=== PATIENT | female | born 1955 | race Caucasian/White ===

== ENCOUNTER 2016-08-21 14:20 | Inpatient (IN) | payer OTHER ==
[~2016-08-21] VITALS: Ht 157.5 cm; Wt 39.5 kg
[~2016-08-21 14:20] MED LIST: ATIVAN 0.5MG T0.5 MG PO; ATROVENT 0.02%2.5 ML INH; METHYLPREDNISOLONE IV; MOXIFLOXACIN H400 M1 PO; NICODERM C21 MG/24 H TOP; SPIRIVA1 PUF INH; TESSALON PERLE100 MG PO
--- NOTE | 2016-08-21 14:43 | ED DYSPNEA/ASTHMA COMPLAINT ---
History of Present Illness General Chief Complaint: Dyspnea (COPD, CHF, Other) Stated Complaint: COPD FLEAR UP PER PT Source: patient, old records, PCP Exam Limitations: no limitations Vital Signs & Intake/Output Vital Signs & Intake/Output Vital Signs Date Time Temp Pulse Resp B/P Pulse O2 O2 Flow FiO2 Ox Delivery Rate 08/21 1736 80 16 94/53 96 Nasal 2.0L Cannula 08/21 1722 96 Nasal 2.0L Cannula 08/21 1605 90 20 94/55 99 Aerosol Mask 08/21 1600 Nasal 4.0L Cannula 08/21 1457 98.3 94 22 116/65 99 Nasal 4.0L Cannula 08/21 1426 98.3 97 20 113/73 87 Room Air Room Air Allergies Coded Allergies: NO KNOWN ALLERGIES (06/05/14) Reconcile Medications No Known Home Medications Triage Note: PT TO ED FROM DR GRANT'S OFFICE, SENT IN FOR LOW O2 SATS, O2 SAT IN TRIAGE 87% ON ROOM AIR. PT NOT ON O2 AT HOME. +SMOKER Triage Nurses Notes Reviewed? yes HPI: Patient has not seen a nuclear medicine technician in over a year so has run out of her COPD medications. Patient continues to smoke. Patient saw Dr. Grant this afternoon for the first time. Patient was short of breath in his office and not speak complete. Her room air oxygen saturation was 85%. Patient sent down for evaluation. Patient states that her symptoms have been worsening and she's had a wet sounding but nonproductive cough. Patient states she wakes up in the morning feeling very short of breath and fatigued. Patient is unsure if she wakes up multiple times during the night. Patient states that she has no appetite but does not have any abdominal pain. There is no nausea or vomiting. No constipation or diarrhea. Patient denies any fevers or chills. Patient denies any chest pain or chest tightness. Patient states that she just feels very weak and feels very short of breath when she walks around or speak. Past History Travel History Traveled to [place] past 21 day No Medical History Any Pertinent Medical History? see below for history Neurological: NONE EENT: NONE Cardiovascular: NONE Respiratory: emphysema Gastrointestinal: NONE Hepatic: NONE Renal: NONE Musculoskeletal: NONE Psychiatric: NONE Endocrine: NONE Blood Disorders: NONE Cancer(s): NONE ELECTRONICS SPECIALIST/Reproductive: NONE History of MRSA: No History of VRE: No History of CDIFF: No Pneumonia Vaccine: 06/05/14 Influenza Vaccine: 06/05/14 Surgical History Surgical History: non-contributory Psychosocial History Who do you live with Patient/Self What is your primary language Macedonian Tobacco Use: Current Daily Use Daily Tobacco Use Amount/Type: => 5 Cigarettes daily ETOH Use: denies use Illicit Drug Use: denies illicit drug use Family History Family History, If Any: SON (Diabetes). BROTHER Relation not specified for: FH: COPD (chronic obstructive pulmonary disease) FH: diabetes mellitus Hx Contributory? No Review of Systems Review of Systems Constitutional: Reports: no symptoms. EENTM: Reports: no symptoms. Respiratory: Reports: see HPI, cough, short of breath, wheezing. Cardiovascular: Reports: no symptoms. GI: Reports: no symptoms. Genitourinary: Reports: no symptoms. Musculoskeletal: Reports: no symptoms. Skin: Reports: no symptoms. Neurological/Psychological: Reports: no symptoms. Hematologic/Endocrine: Reports: no symptoms. Immunologic/Allergic: Reports: no symptoms. All Other Systems: Reviewed and Negative Physical Exam Physical Exam General Appearance: well developed/nourished, alert, awake, anxious, moderate distress Head: atraumatic, normal appearance Eyes: Bilateral: PERRL, EOMI. Ears, Nose, Throat: normal pharynx, normal ENT inspection Neck: normal inspection, supple, full range of motion Respiratory: chest non-tender, decreased breath sounds, wheezing, respiratory distress Cardiovascular: regular rate/rhythm, normal peripheral pulses Gastrointestinal: normal bowel sounds, soft, non-tender, no organomegaly Extremities: normal inspection, normal capillary refill, normal range of motion, no edema Neurologic/Psych: no motor/sensory deficits, awake, alert, oriented x 3, normal mood/affect Skin: intact, normal color, warm/dry Lymphatic: no anterior cervical monica Core Measures ACS in differential dx? No Severe Sepsis Present: No Septic Shock Present: No Progress Differential Diagnosis: asthma, AMI, bronchitis, CHF, COPD, pulmonary embolism, pneumonia, pneumothorax Plan of Care: Orders Procedure Date/time Status Regular Diet 08/21 D Active CTA CHEST-PULMONARY EMBOLISM 08/21 1646 Active ARTERIAL BLOOD GAS (GEN) 08/21 1443 Active Telemetry/Technician Assistant 08/21 1443 Active BLOOD CULTURE 08/21 1443 Active TROPONIN LEVEL 08/21 1443 Complete PARTIAL THROMBOPLASTIN TIME 08/21 144 Complete PROTHROMBIN TIME 08/21 1443 Complete COMPREHENSIVE METABOLIC PANEL 08/21 144 Complete CBC WITHOUT DIFFERENTIAL 08/21 1442 Complete EKG 08/21 144 Active Current Medications Sig/Nishant Start time Last Medication Dose Stop Time Status Admin Azithromycin 500 MG ONCE ONE 08/21 1829 UNVr (Zithromax) 08/21 1928 Dextrose/Water 250 ML (D5W) Ceftriaxone Sodium 1,000 MG ONCE ONE 08/21 1829 UNVr (Rocephin) 08/21 1830 Laboratory Tests 08/21/16 1555: pH 7.38, pCO2 53 H, pO2 80, HCO3 31 H, ABG O2 Sat (Measured) 88.0 L, P-50 ( Temp Corrected) Y, Carboxyhemoglobin 8.3 *H, O2 Concentration % 2L, Temperature 97.2, O2 Delivery Method N/C, Phlebotomy Draw Site LEFT RADIAL 08/21/16 1525: Anion Gap 9, Estimated GFR > 60, BUN/Creatinine Ratio 15.0, Glucose 86, Calcium 9.5, Total Bilirubin 0.8, AST 31, ALT 44, Alkaline Phosphatase 64, Troponin I < 0.01, Total Protein 7.0, Albumin 4.3, Globulin 2.7, Albumin/Globulin Ratio 1.6, PT 10.6, INR 1.01, APTT 31, CBC w Diff NO MAN DIFF REQ, RBC 5.54 H, MCV 96.2, MCH 30.5, RDW 14.6 H, MPV 8.5, Gran % 69.1, Lymphocytes % 21.3, Monocytes % 7.4 , Eosinophils % 1.8, Basophils % 0.4, Absolute Granulocytes 4.7, Absolute Lymphocytes 1.4, Absolute Monocytes 0.5, Absolute Eosinophils 0.1, Absolute Basophils 0, PUBS MCHC 31.7 L Microbiology 08/21 152 BLOOD: Blood Culture - RECD 08/21 152 BLOOD: Blood Culture - RECD Diagnostic Imaging: Viewed by Me: Radiology Read. Discussed w/RAD: Radiology Read. CXR Impression: PATIENT: KRISTEN HERNANDEZ PRESENT AGE: 61 PATIENT ACCOUNT NO: [id number] : 59 LOCATION: [facility] ORDERING PHYSICIAN: NANCY ROBERTS MD SERVICE DATE: 08/21/16-1442 EXAM TYPE: RAD - XRY- PORTABLE CHEST XRAY EXAMINATION: XR PORTABLE CHEST CLINICAL INFORMATION: Shortness of breath. Evaluate for pneumonia. COMPARISON: Report from prior chest x-ray 06/04/2014. TECHNIQUE: Portable AP view of the chest was obtained. FINDINGS: The cardiomediastinal silhouette is within normal limits. The lungs are moderately hyperexpanded and clear. No underlying pleural effusions are seen. There is no evidence of pneumothorax or pulmonary edema. Included osseous structures appear largely unremarkable. IMPRESSION: No evidence of an acute intrathoracic process. DICTATED BY: LEYDI KIM MD DATE/TIME DICTATED:08/21 YARN WORKER:SHRUTHI DATE/TIME TRANSCRIBED:08/21/161525 CONFIDENTIAL, DO NOT COPY WITHOUT APPROPRIATE AUTHORIZATION. <Electronically signed in Other Vendor System> SIGNED BY: LEYDI KIM MD 08/21/16 216 Initial ED EKG: NSR, nonspecific ST T wave chg Prior EKG: unchanged Rhythm Strip: normal sinus rhythm Comments: O2 STATS INCREASED TO 97%ON 2 LPM. Departure Departure Disposition: STILL A PATIENT Condition: Guarded Clinical Impression Primary Impression: COPD exacerbation Referrals: NAINA STEIN,CHAPARRO (PCP/Family) Departure Forms: Customer Survey General Discharge Information Prescriptions: Current Visit Scripts No Known Home Medications Admission Note Spoke With: ANDRÉS OROZCO MD Documentation of Exam: Documentation of any treatments & extenuating circumstances including Concerns Regarding Discharge (functional status, medication knowledge or non-compliance, living conditions, etc.) that warrant an admission rather than observation: [IV antibiotics, IV steroids, nebulizer treatments, pulmonary consult, patient is requiring O2, at some point patient patient should be worked up for shock to sleep apnea.] Critical Care Note Critical Care Note Critical Care Time: non-applicable
--- NOTE | 2016-08-21 15:32 | RADIOLOGY REPORT ---
EXAMINATION: XR PORTABLE CHEST CLINICAL INFORMATION: Shortness of breath. Evaluate for pneumonia. COMPARISON: Report from prior chest x-ray 06/04/2014. TECHNIQUE: Portable AP view of the chest was obtained. FINDINGS: The cardiomediastinal silhouette is within normal limits. The lungs are moderately hyperexpanded and clear. No underlying pleural effusions are seen. There is no evidence of pneumothorax or pulmonary edema. Included osseous structures appear largely unremarkable. IMPRESSION: No evidence of an acute intrathoracic process.
[2016-08-21 16:07] LABS: PT 10.6 SEC (9.4-12.5); PTT 31 SEC (25-37)
[2016-08-21 16:19] LABS: ABSOLUTE BASOPHIL COUNT 0 /CUMM (0.0-0.2); ABSOLUTE EOSINOPHIL COUNT 0.1 /CUMM (0.0-0.7); ABSOLUTE GRANULOCYTE CT 4.7 /CUMM (1.4-6.5); ABSOLUTE LYMPH COUNT 1.4 /CUMM (1.2-3.4); ABSOLUTE MONOCYTE COUNT 0.5 /CUMM (0.10-0.60); BASOPHIL % 0.4 % (0.0-2.0); EOSINOPHIL % 1.8 % (0-5); GRANULOCYTE % 69.1 % (42.2-75.2); HEMATOCRIT 53.3 % (37-47); MEAN CORPUSCULAR HGB 30.5 PG (27.0-31.0); MEAN CORPUSCULAR HGB CONC 31.7 G/DL (33.0-37.0); MEAN CORPUSCULAR VOLUME 96.2 FL (81.0-99.0); MEAN PLATELET VOLUME 8.5 FL (7.4-10.4); PLATELET COUNT 151 /CUMM (130-400); RBC DISTRIBUTION WIDTH 14.6 % (11.5-14.5); RED BLOOD CELL CT 5.54 /CUMM (4.20-5.40); WHITE BLOOD CELL COUNT 6.8 /CUMM (4.8-10.8)
--- NOTE | 2016-08-21 18:39 | History & Physical ---
MARANDA FOLEY MD 08/21/16 2749: General Information and HPI MD Statement: I have seen and personally examined KRISTEN HERNANDEZ and documented this H&P. The patient is a 61 year old F who presented with a patient stated chief complaint of []. History of Present Illness: This is a 61-year-old female with a past medical history of COPD, 50 pack years of smoking history, not on home oxygen, currently not on any home pulmonary inhalers or any home medications who presented to the [facility] with persistent shortness of breath and fatigue for the last 1 year. The patient's symptoms has been present for almost a year but has been worsened in the last 1 week. She was referred by her primary care physician to see the employment training specialist Dr. Grant when she saw in the morning and after doing a pulse oximetry in the office the patient was then deferred to the emergency department for further evaluation. The patient when I saw was complaining of persistent wheezing, intermittent cough which is sometimes productive with whitish sputum. She denied any fever or chills, she has been exposed to recent sick contacts which includes his sister who was been diagnosed with pneumonia. No recent leg swellings, chest pain palpitations. The patient is CURRENTLY actively smoking as well. She doesn't only follow up with her primary care physician. She has also noticed that she has lost 30 pounds in the last 1 year and felt as if her appetite has decreased as well. She was previously on heartburn education and had endoscopy done 20-30 years back but currently is asymptomatic Allergies/Medications Allergies: Coded Allergies: NO KNOWN ALLERGIES (06/05/14) Home Med list No Known Home Medications Past History Travel History Traveled to [place] past 21 day No Medical History Neurological: NONE EENT: NONE Cardiovascular: NONE Respiratory: emphysema Gastrointestinal: NONE Hepatic: NONE Renal: NONE Musculoskeletal: NONE Psychiatric: NONE Endocrine: NONE Blood Disorders: NONE Cancer(s): NONE CREDIT PORTFOLIO ADVISOR/Reproductive: NONE History of MRSA: No History of VRE: No History of CDIFF: No Surgical History Surgical History: non-contributory Past Family/Social History Family History Relations & Conditions if any SON (Diabetes). BROTHER Relation not specified for: FH: COPD (chronic obstructive pulmonary disease) FH: COPD (chronic obstructive pulmonary disease) FH: diabetes mellitus Psychosocial History Where do you live? Home Who Do You Live With? child Services at Home: None Primary Language: Latvian Smoking Status: Current Everyday Smoker ETOH Use: denies use Illicit Drug Use: denies illicit drug use Review of Systems Review of Systems Constitutional: Reports: see HPI. Cardiovascular: Reports: palpitations. Denies: see HPI, chest pain, edema, peripheral edema. Respiratory: Reports: cough, orthopnea, short of breath, sputum production, wheezing. GI: Reports: nausea. Denies: bloating, constipation, distention, bowel incontinence , melena. Genitourinary: Denies: discharge, dysuria, frequency, hematuria, hesitation. Musculoskeletal: Denies: gout, joint pain, joint swelling, muscle pain, muscle stiffness. Exam & Diagnostic Data Last 24 Hrs of Vital Signs/I&O Vital Signs Date Time Temp Pulse Resp B/P Pulse O2 O2 Flow FiO2 Ox Delivery Rate 08/21 2005 98.9 88 18 90/68 95 Nasal 3.0L Cannula 08/21 1954 99.1 88 20 90/68 95 Nasal 4.0L Cannula 08/21 1736 80 16 94/53 96 Nasal 2.0L Cannula 08/21 1722 96 Nasal 2.0L Cannula 08/21 1605 90 20 94/55 99 Aerosol Mask 08/21 1600 Nasal 4.0L Cannula 08/21 1457 98.3 94 22 116/65 99 Nasal 4.0L Cannula 08/21 1426 98.3 97 20 113/73 87 Room Air Room Air Intake & Output 08/21 1600 08/21 0800 08/21 0000 Intake Total Output Total Balance Patient 87 lb 0.02 oz Weight Physical Exam General Appearance Alert, Oriented X3, Cooperative Skin No Rashes, No Breakdown HEENT Atraumatic, PERRLA Neck Supple, No JVD, No thryomegaly Lymphatic Axillary nl, Cervical nl Cardiovascular Normal S1, Normal S2 Lungs Clear to Auscultation, Normal Air Movement Abdomen Soft, No Tenderness Assessment/Plan Assessment: This is a 61-year-old female with a past medical history of COPD not on home oxygen who presented to the [facility] with persistent shortness of breath and bilateral wheezing with intermittent productive cough. Vital signs at the time of admission shows: Blood pressure of 94/53, saturation of 96% on 2 L, respiration rate of 18 heart rate of 80. Labs shows normal WBC, hemoglobin of 16.9 with normal hematocrit, platelet count of 151, rest of the electrolytes are within normal limits Chest x-ray does not show any acute pulmonary process Assessment 1. COPD exacerbation 2. Borderline hypotension Plan To general medicine floor Start the patient on IV Solu-Medrol 40 mg every 8 from the morning Add azithromycin for has an anti-inflammatory effect TRC nebulization Symbicort 2 puffs twice a day Albuterol nebulization Pulmonology consult to Dr. Grant in the morning Patient is currently full code DVT prophylaxis at all times with subcutaneous Lovenox As Ranked By This Provider Problem List: 1. COPD exacerbation 2. Hypoxia Core Measures/Miscellaneous Acute Coronary Syndrome ACS Diagnosis: No Cerebrovascular Accident CVA/TIA Diagnosis: No Congestive Heart Failure CHF Diagnosis: No Venous Thromboembolism VTE Risk Factors: Acute medical illness, Age > 40 VTE Prophylaxis Ordered Inpt: Pharm- Lovenox No Mech VTE prophylaxis d/t: No contraindications No VTE Pharm Prophylaxis d/t: No contraindications VTE Diagnosis: No VTE Type: NONE VTE Confirmed by (Test): NONE Severe Sepsis Severe Sepsis Present: No Septic Shock Septic Shock Present: No Miscellaneous Documentation Attending Case Discussed With: [facility]ENG [facility] Primary Care Physician: CHAPARRO CHEW MD Patient sees these Specialists NONE Level of Patient Care: General Medicine ARPIT OROZCO MD 08/21/161922: Attending MD Review Statement Attending Statement Attending MD Statement: examined this patient, discuss w/resident/PA/FOUNDRY HAND, agreed w/resident/PA/FOUNDRY HAND Attending Assessment/Plan: 61 yo F, smoker, with h/o COPD is here with gradually worsening dyspnea on exertion, weakness and cough productive of white phlegm for over 1 year. She was last admitted to [facility] in 2013 for COPDE, but did not follow up with a Director Hospice Operations. She also did not have her inhalers for the past year. She has lost 30 lbs in 1 year. Sick contacts ++. She had an appointment with Dr. Grant today, was noted to ahve sats 85% on RA and was unable to complete sentences, hence was sent to ER for further evaluation. Vitals: sats 88% RA --> 95% on 2L, afebrile, borderline BP which responded to IV fluids. Frail, cachetic lady in mild respiratory distress, able to speak in full sentences now, Chest b/l reduced air entry, expiratory wheeze+. Labs: H/H 16.9/ 53.3 (hemeconcentrated), bicarb 33, trop neg, AB.38/53/80/31. CXR neg. EKG: SR. 1. Acute hypoxic and hypercarbic respiratory failure 2/2 COPD exacerbation. TRC nebs, sputum culture, IV steroids, IV azithro, mucinex BID. Continue symbicort, hold spiriva. Patient refused flu swab and CTA to rule out PE. Pulm consult with Dr. Grant in AM. Smoking cessation counseling, nicotine patch. 2. Borderline hypotension that improved with IV fluids. DVT ppx Lovenox. Full code.
--- NOTE | 2016-08-21 19:23 | Admission Certification ---
Admission Certification Certification Statement - As attending physician, I certify that at the time of - admission, based on clinical presentation, severity of - symptoms, need for further diagnostic testing and - therapeutic interventions, and risk of adverse outcomes - without in-hospital treatment, in my clinical assessment, - this patient requires an acute hospital stay for a minimum - of two nights or longer. I have also considered psychsocial - factors such as support system, advanced age, financial - issues, cognitive issues, and failed out-patient treatments, - past re-admission history, safety of patient, and lack of - compliance as applicable. Specific rationale supporting this admission is: Acute hypoxic and hypercarbic respiratory failure, COPD exacerbation.
[2016-08-22 00:06] VITALS: BP 86/64
[2016-08-22 00:51] VITALS: BP 82/54
[2016-08-22 02:18] VITALS: BP 86/62
[2016-08-22 04:14] VITALS: BP 100/64
[2016-08-22 07:30] VITALS: BP 100/49
[2016-08-22 08:24] LABS: ABSOLUTE BASOPHIL COUNT 0 /CUMM (0.0-0.2); ABSOLUTE EOSINOPHIL COUNT 0 /CUMM (0.0-0.7); ABSOLUTE GRANULOCYTE CT 2.7 /CUMM (1.4-6.5); ABSOLUTE LYMPH COUNT 0.4 /CUMM (1.2-3.4); ABSOLUTE MONOCYTE COUNT 0.2 /CUMM (0.10-0.60); BASOPHIL % 0.1 % (0.0-2.0); EOSINOPHIL % 0.1 % (0-5); GRANULOCYTE % 81.1 % (42.2-75.2); MEAN CORPUSCULAR HGB CONC 32.2 G/DL (33.0-37.0); MEAN CORPUSCULAR VOLUME 96.4 FL (81.0-99.0); MEAN PLATELET VOLUME 8.6 FL (7.4-10.4); PLATELET COUNT 135 /CUMM (130-400); RBC DISTRIBUTION WIDTH 14.1 % (11.5-14.5); RED BLOOD CELL CT 4.87 /CUMM (4.20-5.40)
[2016-08-22 09:01] LABS: HEMATOCRIT 46.9 % (37-47); WHITE BLOOD CELL COUNT 3.3 /CUMM (4.8-10.8)
--- NOTE | 2016-08-22 12:06 | PN- Att Addend ---
Attending Addendum Attending Brief Note Patient is very pleasant 61-year-old female with history of COPD who unfortunately has only compliant with therapy due to insurance reasons. She reports difficulty with minimal activities at baseline over the past year. She reports particularly increased difficulty breathing when she awakes in the morning. She admits to feeling somewhat better following admission to the hospital overnight. Vital Signs Date Time Temp Pulse Resp B/P Pulse O2 O2 Flow FiO2 Ox Delivery Rate 08/22 0847 20 94 Nasal 3.0L Cannula 08/22 0846 94 Nasal 3.0L Cannula 08/22 0800 95 Nasal 4.0L Cannula 08/22 0730 97.8 63 20 100/49 08/22 0414 78 100/64 08/22 0218 78 86/62 97 08/22 0051 86 82/54 92 08/22 0006 98.0 97 20 86/64 98 08/21 2114 Nasal 4.0L Cannula 08/217 Nasal 2.0L Cannula 08/21 2005 98.9 88 18 90/68 95 Nasal 3.0L Cannula 08/21 1954 99.1 88 20 90/68 95 Nasal 4.0L Cannula 08/21 1736 80 16 94/53 96 Nasal 2.0L Cannula 08/21 1722 96 Nasal 2.0L Cannula 08/21 1605 90 20 94/55 99 Aerosol Mask 08/21 1600 Nasal 4.0L Cannula 08/21 1457 98.3 94 22 116/65 99 Nasal 4.0L Cannula 08/21 1426 98.3 97 20 113/73 87 Room Air Room Air Gen. appearance: Not in acute distress Heart: S1-S2 regular Lungs: Fair entry bilaterally, mild rhonchi. Abdomen: Soft and nontender with normal bowel sounds Extremities: No pedal edema Skin: Intact with no rashes. Laboratory Tests 08/22/16 0625: Anion Gap 5, Estimated GFR > 60, BUN/Creatinine Ratio 20.0, CBC w Diff NO MAN DIFF REQ, RBC 4.87, MCV 96.4, MCH 31.0, RDW 14.1, MPV 8.6, Gran % 81.1 H, Lymphocytes % 13.5 L, Monocytes % 5.2, Eosinophils % 0.1, Basophils % 0.1, Absolute Granulocytes 2.7, Absolute Lymphocytes 0.4 L, Absolute Monocytes 0.2, Absolute Eosinophils 0, Absolute Basophils 0, PUBS MCHC 32.2 L 08/21/16 1555: pH 7.38, pCO2 53 H, pO2 80, HCO3 31 H, ABG O2 Sat (Measured) 88.0 L, P-50 ( Temp Corrected) Y, Carboxyhemoglobin 8.3 *H, O2 Concentration % 2L, Temperature 97.2, O2 Delivery Method N/C, Phlebotomy Draw Site LEFT RADIAL 08/21/16 1525: Anion Gap 9, Estimated GFR > 60, BUN/Creatinine Ratio 15.0, Glucose 86, Calcium 9.5, Total Bilirubin 0.8, AST 31, ALT 44, Alkaline Phosphatase 64, Troponin I < 0.01, Total Protein 7.0, Albumin 4.3, Globulin 2.7, Albumin/Globulin Ratio 1.6, PT 10.6, INR 1.01, APTT 31, CBC w Diff NO MAN DIFF REQ, RBC 5.54 H, MCV 96.2, MCH 30.5, RDW 14.6 H, MPV 8.5, Gran % 69.1, Lymphocytes % 21.3, Monocytes % 7.4 , Eosinophils % 1.8, Basophils % 0.4, Absolute Granulocytes 4.7, Absolute Lymphocytes 1.4, Absolute Monocytes 0.5, Absolute Eosinophils 0.1, Absolute Basophils 0, PUBS MCHC 31.7 L Microbiology 08/22 0725 LOWER RESP: Respiratory Culture - RECD 08/22 0625 LOWER RESP: Gram Stain - RECD 08/21 152 BLOOD: Blood Culture - RECD 08/21 152 BLOOD: Blood Culture - RECD Problems: 1. Hypoxic/hypercapnic respiratory failure; likely chronic 2. Advanced COPD Plan: -Continue current bronchodilator regimen. -Continue systemic steroid therapy with Solu-Medrol. Taper down to every 12 hours tomorrow. -bone worker consultation to assist patient in getting her routine medications upon discharge. -Once she has been weaned down to oral steroid therapy assess need for home oxygen therapy. -Given her complaints she may also require BiPAP therapy at night. Follow-up with pulmonology service. -Repeat serum chemistry and CBC in 48 hours to reassess her low white count and bicarbonate level.
--- NOTE | 2016-08-22 12:18 | Cons- Pulmonary ---
General Information and HPI Consulting Request Date of Consult: 08/22/16 Requested By: Dr. Herman Reason for Consult: hypoxemic respiratory failure COPD exacerbation Source of Information: patient Exam Limitations: no limitations History of Present Illness: 61 year old woman. Was seen in office yesterday for the first time. Active smoker ~1PPD. Currently on no inhalers, has not seen a physician for [address] Peraza routinely. Has been hospitalized 2013 with a stay at [place]. Saturation in the office is 87% with deep breathing and 83% on average at rest. Patient is hesitant to get evaluated in the ER. She has seen Dr. Crocker during her past admission, her choice is to follow with us. She has minimal breath sounds. No sick contacts or recent travel history. Has animals at home. She c/o fatigue, chronic cough with occasionaly clear/white phlegm. Dyspnea at rest and exertion. Difficulty completing ADL's. Was sent yeseterday to ER given low o2 sat, significant dyspnea and obvious uncontrolled exacerbation of COPD. Found to be in hypoxemic respiratory failure with acute need for o2 supplementation. Allergies/Medications Allergies: Coded Allergies: NO KNOWN ALLERGIES (06/05/14) Home Med List: No Known Home Medications Current Medications: Current Medications Sig/Nishant Start time Last Medication Dose Route Stop Time Status Admin Acetaminophen 650 MG Q6P PRN 08/21 1845 AC PO Acetaminophen/ 1 TAB Q6P PRN 08/21 1845 AC Hydrocodone Bitart PO Albuterol Sulfate 3 ML TID 08/21 2200 AC 08/22 INH 0840 Albuterol Sulfate 3 ML ONCE ONE 08/21 1445 DC 08/21 INH 08/21 1446 1604 Azithromycin 500 MG 1900 08/22 1900 AC Dextrose/Water 250 ML IV Azithromycin 500 MG DAILY 08/21 1923 DC Dextrose/Water 250 ML IV Azithromycin 500 MG ONCE ONE 08/21 1830 DC 08/21 Dextrose/Water 250 ML IV 08/21 1929 1930 Benzocaine/Menthol 1 TORIE Q2P PRN 08/22 1015 AC 08/22 PO 1101 Budesonide/ 2 PUF BID 08/21 2200 AC 08/22 Formoterol Fumarate INH 0911 Ceftriaxone Sodium 0 .STK-MED ONE 08/21 1850 DC .ROUTE Ceftriaxone Sodium 1,000 MG ONCE ONE 08/21 1830 DC 08/21 IV 08/21 1831 1902 Enoxaparin Sodium 40 MG DAILY 08/21 202 AC SC Guaifenesin 600 MG Q12 08/21 2200 AC 08/22 PO 0911 Guaifenesin/Codeine 10 ML Q6P PRN 08/21 1930 AC 08/22 Phosphate PO 0530 Hydromorphone HCl 1 MG Q6P PRN 08/21 1845 AC IV Ipratropium [place] 2.5 ML ONCE ONE 08/21 1445 DC 08/21 INH 08/21 1446 1604 Methylprednisolone 40 MG Q8 08/22 0600 AC 08/22 IV 0530 Methylprednisolone 0 .STK-MED ONE 08/21 1600 DC .ROUTE Methylprednisolone 125 MG ONCE ONE 08/21 1445 DC 08/21 IV 08/21 1446 1605 Nicotine 14 MG DAILY 08/22 1000 AC 08/22 TOP 0911 Ondansetron HCl 4 MG Q6P PRN 08/21 2015 AC 08/21 IV 2010 Ondansetron HCl 0 .STK-MED ONE 08/21 2003 DC .ROUTE Sodium Chloride 500 ML BOLUS ONE 08/22 0230 DC 08/22 IV 08/22 0329 0254 Sodium Chloride 500 ML BOLUS ONE 08/21 2345 DC 08/21 IV 08/22 0044 2343 Sodium Chloride 1,000 ML Q13H 08/21 1930 AC 08/22 IV 1044 Review of Systems Comments 18 point Review of Systems performed. Positive and negative pertinent findings are deliniated in the HPI. Otherwise the ROS is negative. 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 BROTHER Relation not specified for: FH: COPD (chronic obstructive pulmonary disease) FH: COPD (chronic obstructive pulmonary disease) FH: diabetes mellitus Psychosocial History Where Do You Live? Home Who Do You Live With? child Services at Home: None Primary Language: [place] Smoking Status: Current Some Day Smoker ETOH Use: denies use Illicit Drug Use: denies illicit drug use Exam & Diagnostic Data Last 24 Hrs of Vital Signs/I&O Vital Signs Date Time Temp Pulse Resp B/P Pulse O2 O2 Flow FiO2 Ox Delivery Rate 08/22 0847 20 94 Nasal 3.0L Cannula 08/22 0846 94 Nasal 3.0L Cannula 08/22 0800 95 Nasal 4.0L Cannula 08/22 0730 97.8 63 20 100/49 08/22 0414 78 100/64 08/22 0218 78 86/62 97 08/22 0051 86 82/54 92 08/22 0006 98.0 97 20 86/64 98 08/214 Nasal 4.0L Cannula 08/21 2056 Nasal 2.0L Cannula 08/21 2005 98.9 88 18 90/68 95 Nasal 3.0L Cannula 08/21 1954 99.1 88 20 90/68 95 Nasal 4.0L Cannula 08/21 1736 80 16 94/53 96 Nasal 2.0L Cannula 08/21 1722 96 Nasal 2.0L Cannula 08/21 1605 90 20 94/55 99 Aerosol Mask 08/21 1600 Nasal 4.0L Cannula 08/21 1457 98.3 94 22 116/65 99 Nasal 4.0L Cannula 08/21 1426 98.3 97 20 113/73 87 Room Air Room Air Intake & Output 08/22 1600 08/22 0800 08/22 0000 Intake Total 1855 640 Output Total Balance 1855 640 Intake, IV 1375 400 Intake, Oral 480 240 Patient 87 lb 0.02 oz Weight Physical Exam Other Physical Findings: General - Alert, awake and oriented HEENT - normocephalic, atraumatic Cardiovascular - S1, S2 Lungs - diminished air entry, prolonged end expiratory phase Abdomen - soft, bowel sounds positive, no tenderness Extremities - without edema or cyanosis Last 48 Hrs of Labs/Conner: Laboratory Tests 08/22/16 0625: Anion Gap 5, Estimated GFR > 60, BUN/Creatinine Ratio 20.0, CBC w Diff NO MAN DIFF REQ, RBC 4.87, MCV 96.4, MCH 31.0, RDW 14.1, MPV 8.6, Gran % 81.1 H, Lymphocytes % 13.5 L, Monocytes % 5.2, Eosinophils % 0.1, Basophils % 0.1, Absolute Granulocytes 2.7, Absolute Lymphocytes 0.4 L, Absolute Monocytes 0.2, Absolute Eosinophils 0, Absolute Basophils 0, PUBS MCHC 32.2 L 08/21/16 1555: pH 7.38, pCO2 53 H, pO2 80, HCO3 31 H, ABG O2 Sat (Measured) 88.0 L, P-50 ( Temp Corrected) Y, Carboxyhemoglobin 8.3 *H, O2 Concentration % 2L, Temperature 97.2, O2 Delivery Method N/C, Phlebotomy Draw Site LEFT RADIAL 08/21/16 1525: Anion Gap 9, Estimated GFR > 60, BUN/Creatinine Ratio 15.0, Glucose 86, Calcium 9.5, Total Bilirubin 0.8, AST 31, ALT 44, Alkaline Phosphatase 64, Troponin I < 0.01, Total Protein 7.0, Albumin 4.3, Globulin 2.7, Albumin/Globulin Ratio 1.6, PT 10.6, INR 1.01, APTT 31, CBC w Diff NO MAN DIFF REQ, RBC 5.54 H, MCV 96.2, MCH 30.5, RDW 14.6 H, MPV 8.5, Gran % 69.1, Lymphocytes % 21.3, Monocytes % 7.4 , Eosinophils % 1.8, Basophils % 0.4, Absolute Granulocytes 4.7, Absolute Lymphocytes 1.4, Absolute Monocytes 0.5, Absolute Eosinophils 0.1, Absolute Basophils 0, PUBS MCHC 31.7 L Assessment/Plan Impression/Plan: Impression 61 year old woman Hypoxemic respiratory failure secondary to COPD that is not medically managed at home per patient choice Tobacco dependence Plan -TRC/Nebs -please call case management to arrange o2 at home 18/01 -symbicort 2 puffs BID with rinsing of the mouth -as an outpatient would require the following rx -spiriva RESPIMAT 2 puffs once daily & Symbicort, Proair for rescue as well -will plan to dc Wednesday -would reduce solumedrol today to q12h -tomorrow plan for prednisone 40mg po DVT prophylaxis at all times Consult Acknowledgment - Thank you for your consult request.
[2016-08-22 16:31] VITALS: BP 90/52
[2016-08-23 01:00] VITALS: BP 92/62
[2016-08-23 01:17] VITALS: BP 78/42
[2016-08-23 08:17] VITALS: BP 110/70
--- NOTE | 2016-08-23 10:51 | PN- Att Addend ---
Attending Addendum Attending Brief Note Patient seen and examined. Resting comfortably and not in acute distress. She reports feeling better this morning. Denies chest pain. Denies palpitation. Denies shortness of breath at rest. Denies cough. She is very eager to go home today. Vital Signs Date Time Temp Pulse Resp B/P Pulse O2 O2 Flow FiO2 Ox Delivery Rate 08/23 0840 20 95 Nasal 2.0L Cannula 08/23 0840 20 97 Nasal 3.0L Cannula 08/23 0834 98 Nasal 3.0L Cannula 08/23 0817 98.2 88 20 110/70 96 Nasal 3.0L Cannula 08/23 0117 97.9 92 20 78/42 93 Nasal Cannula 08/23 0100 92/62 08/23 0000 Nasal 3.0L Cannula 08/22 2150 94 Nasal 3.0L Cannula 08/22 1631 98.4 84 20 90/52 94 Nasal 3.0L Cannula 08/22 1600 Nasal 3.0L Cannula Gen. Appearance: Not in acute distress Heart: S1-S2 regular Lungs: Fair entry bilaterally, clear to auscultation. Abdomen: Soft and nontender with normal bowel sounds Extremities: No pedal edema Skin: Intact with no rashes. Problems: 1. Hypoxic/hypercapnic respiratory failure; likely chronic 2. COPD Exacerbation Plan: -Patient is doing better today. She has been transitioned to oral steroids. -Reassess need for home oxygen therapy this morning. -If cleared by the pulmonary service she may be discharged home today with recommendations for bronchodilator and inhaled corticosteroid therapy. -She is to follow-up with the pulmonary service as an outpatient. She verbalizes understanding of this plan.
[2016-08-23] MEDS ORDERED: SPIRIVA RESPIMAT4 GM INH (11:13)
--- NOTE | 2016-08-23 11:18 | Patient Discharge Instructions ---
Discharge Instructions General Discharge Information You were seen/treated for: 1. COPD Watch for these problems: - shortness of breath, chest pain - palpitations(racing of heart) - altered mental status Special Instructions: - Please see your PCP within one week of discharge. - Please see your Enterprise Applications Manager within one week of discharge. - Please take your medications as prescribed. -If worsening of symptoms, shortness of breath or chest pain/palpitations please contact your primary care provider as soon as possible or seek medical attention immediately. Acute Coronary Syndrome Inclusion Criteria At DC or during hospital stay patient has or had the following: ACS DIAGNOSIS No Discharge Core Measures Meds if any: Prescribed or Continued at Discharge Meds if any: NOT Prescribed or Continued at Discharge Congestive Heart Failure Inclusion Criteria At DC or during hospital stay patient has or had the following: CHF DIAGNOSIS No Discharge Core Measures Meds if any: Prescribed or Continued at Discharge Meds if any: NOT Prescribed or Continued at Discharge Cerebrovascular accident Inclusion Criteria At DC or during hospital stay patient has or had the following: CVA/TIA Diagnosis No Discharge Core Measures Meds if any: Prescribed or Continued at Discharge Meds if any: NOT Prescribed or Continued at Discharge Venous thromboembolism Inclusion Criteria VTE Diagnosis No VTE Type NONE VTE Confirmed by (Test) NONE Discharge Core Measures - Per Current guidelines, there needs to be overlap - treatment for the first 5 days of Warfarin therapy. - If discharged on Warfarin prior to 5 days of - overlap therapy, the patient will need to be - assessed for post discharge needs including - *Post discharge parental anticoagulation - *Warfarin and/or parental anticoagulation education - *Follow up date to check INR post discharge At least 5 days overlap therapy as Inpatient No Meds if any: Prescribed or Continued at Discharge Note: Overlap Therapy is Warfarin and Anticoagulant Meds if any: NOT Prescribed or Continued at Discharge
[2016-08-23] MEDS ORDERED: PREDNISONE10 M2 PO ×2 (11:26→11:40)
[2016-08-23] MEDS ORDERED: SYMBICORT 80-10.2 GM INH (11:33)
[2016-08-23] MEDS ORDERED: PROAIR HFA8.5 GM INH (11:33)
[2016-08-23] MEDS ORDERED: COMBIVENT RESPIM4 GM PO (11:34)
--- NOTE | 2016-08-23 13:52 | PN- Pulmonary ---
Subjective HPI/Critical Care Issues: pt seen and examined feeling better overall RA oximetry 80's with o2 supplementation 93% on 2LNC pt is asking to be discharged Objective Current Medications: Current Medications Sig/Nishant Start time Last Medication Dose Route Stop Time Status Admin Acetaminophen 650 MG Q6P PRN 08/21 1845 AC PO Acetaminophen/ 1 TAB Q6P PRN 08/21 1845 AC Hydrocodone Bitart PO Albuterol Sulfate 3 ML TID 08/21 2200 AC 08/23 INH 0828 Azithromycin 500 MG 1900 08/22 1900 AC 08/22 Dextrose/Water 250 ML IV 1855 Benzocaine/Menthol 1 TORIE Q2P PRN 08/22 1015 AC 08/22 PO 1420 Budesonide/ 2 PUF BID 08/22 1340 DC Formoterol Fumarate INH Budesonide/ 2 PUF BID 08/21 2200 AC 08/23 Formoterol Fumarate INH 0846 Enoxaparin Sodium 40 MG DAILY 08/21 202 AC SC Guaifenesin 600 MG Q12 08/21 2200 AC 08/23 PO 0846 Guaifenesin/Codeine 10 ML Q6P PRN 08/21 1930 AC 08/23 Phosphate PO 0846 Hydromorphone HCl 1 MG Q6P PRN 08/21 1845 AC IV Methylprednisolone 40 MG Q12 08/22 2200 DC 08/22 IV 08/23 0000 2125 Nicotine 14 MG DAILY 08/22 1000 AC 08/23 TOP 0846 Ondansetron HCl 4 MG Q6P PRN 08/21 2014 AC 08/22 IV 2034 Prednisone 40 MG DAILY 08/23 1000 AC 08/23 PO 0846 Sodium Chloride 500 ML BOLUS ONE 08/22 2345 DC IV 08/23 0044 Sodium Chloride 500 ML BOLUS ONE 08/22 1645 DC 08/22 IV 08/22 1744 1645 Sodium Chloride 1,000 ML Q13H 08/21 1930 DC 08/22 IV 1746 Vital Signs & I&O Last 24 Hrs of Vitals and I&O: Vital Signs Date Time Temp Pulse Resp B/P Pulse O2 O2 Flow FiO2 Ox Delivery Rate 08/23 1120 24 93 Nasal 2.0L Cannula 08/23 1120 24 78 Room Air 08/23 1120 20 94 Room Air 08/23 1120 22 97 Nasal 2.0L Cannula 08/23 0840 20 95 Nasal 2.0L Cannula 08/23 0840 20 97 Nasal 3.0L Cannula 08/23 0834 98 Nasal 3.0L Cannula 08/23 0817 98.2 88 20 110/70 96 Nasal 3.0L Cannula 08/23 0800 95 Nasal 3.0L Cannula 08/23 0117 97.9 92 20 78/42 93 Nasal Cannula 08/23 0100 92/62 08/23 0000 Nasal 3.0L Cannula 08/22 2150 94 Nasal 3.0L Cannula 08/22 1631 98.4 84 20 90/52 94 Nasal 3.0L Cannula 08/22 1600 Nasal 3.0L Cannula Intake & Output 08/23 1600 08/23 0800 08/23 0000 Intake Total 600 1400 Output Total 400 Balance 600 1000 Intake, IV 600 600 Intake, Oral 800 Number 1 Bowel Movements Output, Urine 400 Exam Other Physical Findings: General - Alert, awake and oriented HEENT - normocephalic, atraumatic Cardiovascular - S1, S2 Lungs - diminished air entry, prolonged end expiratory phase Abdomen - soft, bowel sounds positive, no tenderness Extremities - without edema or cyanosis Impression/Plan Impression/Plan Impression/Plan: Impression 61 year old woman Hypoxemic respiratory failure secondary to COPD that is not medically managed at home per patient choice Tobacco dependence Plan -o2 arranged at home - portable and concentrator -spiriva RESPIMAT 2 puffs once daily & Symbicort, Proair for rescue as well -has a nebulizer at home -prednisone taper as ordered every 2 days to reduce by 10mg -to follow up with me at the end of the week -will need outpt pfts, LDCT, etc -smoking cessation - counseled DVT prophylaxis at all times
--- NOTE | 2016-08-27 15:53 | Discharge Summary ---
Visit Information Visit Dates Admission Date: 08/21/16 Discharge Date: 08/23/16 Hospital Course Course Attending Physician: PAM STEINST. [facility] Primary Care Physician: NAINA STEIN,[facility] Course: This is a 61-year-old female with a past medical history of COPD, 50 pack years of smoking history, not on home oxygen, currently not on any home pulmonary inhalers or any home medications who presented to the [facility] with persistent shortness of breath and fatigue for the last 1 year. The patient's symptoms has been present for almost a year but has been worsened in the last 1 week. She was referred by her primary care physician to see the fruit canner Dr. Grant when she saw in the morning and after doing a pulse oximetry in the office the patient was then deferred to the emergency department for further evaluation. C/O lost 30 punds in the last 1 year. The patient is CURRENTLY actively smoking as well. She doesn't only follow up with her primary care physician. She was previously on heartburn education and had endoscopy done 20-30 years back but currently is asymptoma Vitals and Labs and Imaging as follows: Vitals: sats 88% RA --> 95% on 2L, afebrile, borderline BP which responded to IV fluids. Frail, cachetic lady in mild respiratory distress, able to speak in full sentences now, Chest b/l reduced air entry, expiratory wheeze+. Labs: H/H 16.9/ 53.3 (hemeconcentrated), bicarb 33, trop neg, AB.38/53/80/31. CXR neg. EKG: SR. She was treated in hiospital for Following Problems: 1.Acute Hypoxiac respiratory Failure 2.COPD exacrerbation She was admitrted on GM.Started On IV Soumedrol and azithromycin.TRansitioned to PO Steroids and was then sent home on 40 mg PO prednsone and then taper 10 mg every 2 days. She was assessed for the Home O2 requiremnet and was discharged with home Oxygen therapy of 2L at home. Started on -spiriva RESPIMAT 2 puffs once daily & Symbicort, Proair for rescue as well She has a nebulizer at home She will F.u with Dr Grant in 1 week of discharge. Smoking cessations was discussed in detail Allergies: Coded Allergies: NO KNOWN ALLERGIES (12/09/14) Disposition Summary Disposition Principal Diagnosis: Acute hypoxiac respiratory failure Additional Diagnosis: COPD Everyday smoker Discharge Disposition: home or self care Discharge Instructions General Discharge Information Code Status: Full Code Patient's Diet: As tolerated Patient's Activity: as Tolerated Follow-Up Instructions/Appts: F/u with Dr Grant in 1 week of discharge. Medications at Discharge Discharge Medications: Start taking the following new medications: Prednisone (Prednisone) 10 MG TABLET 1 Tablet ORAL TWICE DAILY Qty = 16 No Refills Instructions: Take 4 Tab on (40 mg) Aug 24 Take 3 Tab (30) mg AUG 25 and Jul Take 2 Tab (20 mg) August 26 and Take 1 tab (10 mg) on August 28 and Comments: Last Taken:08/23/16 Time: 0900AM Tiotropium [place] (Spiriva Respimat) 2.5 MCG/ACTUATION MIST.INHAL 2 Puff Inhale through mouth DAILY Qty = 1 Refills = 1 Comments: NOT GIVEN IN HOSPITAL Budesonide/Formoterol Fumarate (Symbicort 80-4.5 Mcg Inhaler) 80 MCG-4.5 MCG/ ACTUATION HFA.AER.AD 2 Puff Inhale through mouth TWICE DAILY Qty = 1 No Refills Comments: Last Taken: 08/23/16 Time: 0900AM Albuterol Sulfate (Proair Hfa) 90 MCG HFA.AER.AD 2 Puff Inhale through mouth EVERY 4-6 HOURS NEEDED as needed for SHORTNESS OF BREATH Qty = 1 No Refills Comments: NOT GIVEN IN HOSPITAL Copies To: NAINA STEIN,[facility]; NANCY STEIN,DIANE Osorio MD Review Statement Documenting Attending: ARABELLA CESAR M.D Other Findings: Patient is medically stable to be discharged.
== END 2016-08-23 14:59 | DRG 190 ==
LOC: ENRESERVTM → ENRESERVDT → ERH 14:20 → ERHI 18:37 → ENPENDDIS 18:37 → 2NB 18:37 → DELPENDDIS 18:37 → 2NB 20:39
PROVIDERS: Emergency Medicine; Internal Medicine Nephrology; ADMIT Student in an Organized Health Care Education/Training Program
DX: J44.1 Chronic obstructive pulmonary disease with (acute) exacerbation (principal); J96.22 Acute and chronic respiratory failure with hypercapnia; J96.21 Acute and chronic respiratory failure with hypoxia; J96.12 Chronic respiratory failure with hypercapnia; J96.11 Chronic respiratory failure with hypoxia; Z83.6 Family history of other diseases of the respiratory system; F17.210 Nicotine dependence, cigarettes, uncomplicated; I10 Essential (primary) hypertension
CPT/HCPCS: 2NBSP; 36415; 82436; 87040; 87070; 93005; 93010; 96374; 99291; J0456; J0696; J1650; J2405; J2920; J2930; J3490; J7040; J7060

== ENCOUNTER 2017-12-02 07:00 | Inpatient (IN) | payer OTHER ==
[~2017-12-02] VITALS: Ht 157.5 cm; Wt 37.7 kg
[~2017-12-02 07:00] MED LIST changes: +COMBIVENT RESPIM4 GM PO; +PREDNISONE10 M2 PO; +PROAIR HFA8.5 GM INH; +SPIRIVA RESPIMAT4 GM INH; +SYMBICORT 80-10.2 GM INH
--- NOTE | 2017-12-02 07:20 | ED GENERAL ADULT ---
History of Present Illness General Chief Complaint: Dyspnea (COPD, CHF, Other) Stated Complaint: HX COPD C/O DIFF BREATHING 5L HOME 02 PER FAMILY Source: patient, EMS Exam Limitations: no limitations Vital Signs & Intake/Output Vital Signs & Intake/Output Vital Signs Date Time Temp Pulse Resp B/P B/P Pulse O2 O2 Flow FiO2 Mean Ox Delivery Rate 12/02 0841 100 24 91/60 98 Nasal 50% Cannula 12/02 0753 98 Non 60% ReBreather 12/02 0752 117 26 98 Non 60% ReBreather 12/02 0738 100 Non 100% ReBreather 12/02 0704 98.6 125 22 106/66 79 Nasal 5.0L Cannula Allergies Coded Allergies: NO KNOWN ALLERGIES (06/05/14) Reconcile Medications Albuterol Sulfate (Proair Hfa) 90 MCG HFA.AER.AD 2 PUF INH Q4-6 PRN PRN SHORTNESS OF BREATH Budesonide/Formoterol Fumarate (Symbicort 80-4.5 Mcg Inhaler) 80 MCG-4.5 MCG/ ACTUATION HFA.AER.AD 2 PUF INH BID COPD Prednisone 10 MG TABLET 1 TAB PO BID COPD Take 4 Tab on (40 mg) Aug 24 Take 3 Tab (30) mg AUG 25 and b Take 2 Tab (20 mg) August 26 and Take 1 tab (10 mg) on August 28 and Tiotropium [place] (Spiriva Respimat) 2.5 MCG/ACTUATION MIST.INHAL 2 PUF INH DAILY COPD Triage Note: 62 YO FEMALE TO TRIAGE FOR EVAL OF SOB. PT HX OF COPD. STATES PRODUCTIVE COUGH X1 WEEK. PT IS A SMOKER. PT ON 5L OXYGEN AT BASELINE. SATS 79%. Triage Nurses Notes Reviewed? yes Onset: Abrupt Duration: day(s): Timing: recent history HPI: 12/02/17 7:30 AM 62-year-old female presents to the emergency department by ambulance complaining of difficulty breathing and chest pain. She says she has a history of COPD and does smoke. She says she's been having difficulty breathing for several days. She says she feels that the allergies have been aggravating her. Currently in the emergency Department her oxygen saturation 100% percent. She has poor air entry on my exam. Past History Travel History Traveled to [place] past 21 day No Medical History Any Pertinent Medical History? 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 BROTHER Relation not specified for: FH: COPD (chronic obstructive pulmonary disease) FH: COPD (chronic obstructive pulmonary disease) FH: diabetes mellitus Hx Contributory? No Review of Systems Review of Systems Constitutional: Denies: fever. EENTM: Reports: no symptoms. Respiratory: Reports: cough, short of breath. Cardiovascular: Reports: chest pain. GI: Denies: abdominal pain. Genitourinary: Reports: no symptoms. Musculoskeletal: Reports: no symptoms. Skin: Reports: no symptoms. Neurological/Psychological: Reports: no symptoms. Hematologic/Endocrine: Reports: no symptoms. Immunologic/Allergic: Reports: no symptoms. Physical Exam Physical Exam General Appearance: alert, awake, anxious, severe distress Head: atraumatic, normal appearance Eyes: Bilateral: normal appearance, PERRL, EOMI. Ears, Nose, Throat: normal pharynx, normal ENT inspection Neck: normal inspection, supple, full range of motion Respiratory: decreased breath sounds, accessory muscle use, respiratory distress Cardiovascular: tachycardia Peripheral Pulses: 4+ radial (R), 4+ radial (L) Gastrointestinal: soft, non-tender Back: normal range of motion Extremities: no edema Neurologic/Psych: no motor/sensory deficits, awake, alert, oriented x 3 Skin: intact, normal color, warm/dry Core Measures ACS in differential dx? Yes CVA/TIA Diagnosis: No Sepsis Present: No Sepsis Focused Exam Completed? No Progress Differential Diagnoses I considered the following diagnoses in my evaluation of the patient: [Pneumonia , acute coronary syndrome, exacerbation of COPD, pulmonary embolus him, CHF, pneumothorax] Plan of Care: Orders Procedure Date/time Status Heart Healthy Diet 12/02 L Active ED Holding Orders 12/02 912 Active Admit to inpatient 06/07 0913 Active Vital Signs 06/07 0913 Active Code Status 12/02 09 Active OXYGEN SETUP (GEN) 12/02 08 Complete OXYGEN SETUP (GEN) 12/02 725 Active D-DIMER 12/02 725 Active Saline Lock 12/02 722 Active TROPONIN LEVEL 12/02 722 Complete COMPREHENSIVE METABOLIC PANEL 12/02 722 Complete CBC WITHOUT DIFFERENTIAL 12/02 722 Complete EKG 12/02 722 Active THERAPIST ORDERS 12/02 UNK Complete Laboratory Tests 12/02/17 0730: Anion Gap 10, Estimated GFR > 60, BUN/Creatinine Ratio 18.3, Glucose 117 H, Calcium 9.1, Total Bilirubin 0.6, AST 31, ALT 30, Alkaline Phosphatase 57, Troponin I < 0.01, Total Protein 6.9, Albumin 3.9, Globulin 3.0, Albumin/ Globulin Ratio 1.3, D-Dimer High Sensitivty Pending, CBC w Diff MAN DIFF ORDERED , RBC 5.21, MCV 94.3, MCH 31.8 H, MCHC 33.7, RDW 13.4, MPV 8.2, Gran % 83.3 H, Lymphocytes % 8.6 L, Monocytes % 7.9, Eosinophils % 0.1, Basophils % 0.1, Absolute Granulocytes 4.3, Absolute Lymphocytes 0.4 L, Absolute Monocytes 0.4, Absolute Eosinophils 0, Absolute Basophils 0, Platelet Estimate ADEQUATE, Normocytic RBCs VERIFIED, Normochromic RBCs VERIFIED Initial ED EKG: sinus tachycardia, right atrial enlargement, nonspecific T-wave abnormality Prior EKG: changed Departure Departure Disposition: STILL A PATIENT Condition: Stable Clinical Impression Primary Impression: COPD exacerbation Secondary Impressions: Acute electrocardiogram changes, Chest pain Referrals: Vince Peraza MD (PCP/Family) Departure Forms: Customer Survey General Discharge Information Admission Note Spoke With: Luis Enrique Herman MD Documentation of Exam: Documentation of any treatments & extenuating circumstances including Concerns Regarding Discharge (functional status, medication knowledge or non-compliance, living conditions, etc.) that warrant an admission rather than observation: [The patient needs admission for IV steroids, IV antibiotics, consider pulmonary consultation, serial troponins. She was severely hypoxic on arrival with an oxygen saturation in the 70s.] Critical Care Note Critical Care Note Critical Care Time: non-applicable
[2017-12-02 07:43] LABS: ABSOLUTE BASOPHIL COUNT 0 /CUMM (0.0-0.2); ABSOLUTE EOSINOPHIL COUNT 0 /CUMM (0.0-0.7); ABSOLUTE GRANULOCYTE CT 4.3 /CUMM (1.4-6.5); ABSOLUTE LYMPH COUNT 0.4 /CUMM (1.2-3.4); ABSOLUTE MONOCYTE COUNT 0.4 /CUMM (0.10-0.60); BASOPHIL % 0.1 % (0.0-2.0); EOSINOPHIL % 0.1 % (0-5); GRANULOCYTE % 83.3 % (42.2-75.2); HEMATOCRIT 49.1 % (37-47); MEAN CORPUSCULAR HGB 31.8 PG (27.0-31.0); MEAN CORPUSCULAR HGB CONC 33.7 G/DL (33.0-37.0); MEAN CORPUSCULAR VOLUME 94.3 FL (81.0-99.0); MEAN PLATELET VOLUME 8.2 FL (7.4-10.4); PLATELET COUNT 142 /CUMM (130-400); RBC DISTRIBUTION WIDTH 13.4 % (11.5-14.5); RED BLOOD CELL CT 5.21 /CUMM (4.20-5.40); WHITE BLOOD CELL COUNT 5.1 /CUMM (4.8-10.8)
--- NOTE | 2017-12-02 07:53 | RADIOLOGY REPORT ---
EXAMINATION: XR PORTABLE CHEST CLINICAL INFORMATION: Shortness of breath. COMPARISON: 08/21/16. CT scan of 09/28/16. TECHNIQUE: Portable frontal view of the chest was obtained. FINDINGS: Changes of COPD are again demonstrated. The lungs are hyperexpanded. No focal consolidation, pulmonary edema or other acute abnormality is seen. The pleural spaces are clear. The heart and mediastinal structures are unremarkable. Calcification is present in the aortic arch. No acute bony abnormality. IMPRESSION: Stable appearance of COPD. No acute abnormality.
[2017-12-02] MEDS ORDERED: ALBUTEROL1.25 MG/1 INH/SOL (09:37)
[2017-12-02] MEDS ORDERED: BREO ELLIPTA 11 EACH INH (09:37)
--- NOTE | 2017-12-02 10:10 | History & Physical ---
Vinicio Villalba MD 12/02/17 1001: General Information and HPI History of Present Illness: 62-year-old woman with past medical history of COPD not on home oxygen, alcohol abuse, and 50+-pack-year tobacco use seen for evaluation of progressively worsening shortness of breath with productive cough and chest pain. Patient was previously admitted to [facility] from 08/21/16-08/23/16 for complaints of fatigue and shortness of breath for which she was admitted to the inpatient service for COPD exacerbation and treated with intravenous antibiotics and steroids. She was discharged home on a steroid taper and 2 L of supplemental oxygen. Patient was referred to key punch teacher Rex Grant MD to follow-up with as an outpatient but appears to have been lost to follow-up. Patient reports over the past several weeks that her breathing has been difficult with development of a mild/moderate productive cough of thick white sputum. Her symptoms have dramatically worsened over the past 2 days for which she came to the [place] ED for evaluation. During this time she also reports having intermittent attacks of 6/10 epigastric chest discomfort described as a burning sensation radiating straight up to her throat without any aggravating/ alleviating factors. She is currently still smoking up to one pack per day even during the symptoms. Patient drinks 3-4 beers per day. She admits to occasional associated palpitations. Review of systems She otherwise denies any headache, fever, chills, blurred/double vision, lightheadedness/dizziness, nausea, vomiting, diarrhea, constipation, urinary symptoms. Allergies/Medications Allergies: Coded Allergies: NO KNOWN ALLERGIES (06/05/14) Home Med list Albuterol Sulfate 1.25 MG/3 ML VIAL.NEB 1 Vial INH/ERMELINDA Q4-6 PRN SOB (Reported ) Albuterol Sulfate (Proair Hfa) 90 MCG HFA.AER.AD 2 PUF INH Q4-6 PRN PRN SHORTNESS OF BREATH Fluticasone/Vilanterol (Breo Ellipta 100-25 Mcg INH) 100 MCG-25 MCG/DOSE BLST.W.DEV 1 PUF INH DAILY COPD (Reported) Tiotropium [place] (Spiriva Respimat) 2.5 MCG/ACTUATION MIST.INHAL 2 PUF INH DAILY COPD Past History Travel History Traveled to [place] past 21 day No Medical History Neurological: NONE EENT: NONE Cardiovascular: NONE Respiratory: COPD, emphysema Gastrointestinal: NONE Hepatic: NONE Renal: NONE Musculoskeletal: NONE Psychiatric: NONE Endocrine: NONE Blood Disorders: NONE Cancer(s): NONE MAINTENANCE PIPEFITTER/Reproductive: NONE History of MRSA: No History of VRE: No History of CDIFF: No Surgical History Surgical History: non-contributory Past Family/Social History Family History Relations & Conditions if any SON (Diabetes). BROTHER Relation not specified for: FH: COPD (chronic obstructive pulmonary disease) FH: COPD (chronic obstructive pulmonary disease) FH: diabetes mellitus Psychosocial History Who Do You Live With? child Services at Home: None Primary Language: Chinese Review of Systems Review of Systems Constitutional: Reports: see HPI. Exam & Diagnostic Data Last 24 Hrs of Vital Signs/I&O Vital Signs Date Time Temp Pulse Resp B/P B/P Pulse O2 O2 Flow FiO2 Mean Ox Delivery Rate 12/02 0841 100 24 91/60 98 Nasal 50% Cannula 12/02 0753 98 Non 60% ReBreather 12/02 0752 117 26 98 Non 60% ReBreather 12/02 0738 100 Non 100% ReBreather 12/02 0704 98.6 125 22 106/66 79 Nasal 5.0L Cannula Intake & Output 12/02 1600 12/02 0800 06 0000 Intake Total Output Total Balance Patient 40.823 kg Weight Weight Reported by Patient Measurement Method Physical Exam General Appearance Alert, Oriented X3, Cooperative, No Acute Distress Skin No Rashes, No Breakdown, No Significant Lesion Skin Temp/Moisture Exam: Warm/Dry Sepsis Skin Exam (color): Normal for Ethnicity HEENT Atraumatic, EOMI, Mucous Membr. moist/pink, High flow nasal cannula in place Neck Supple, No JVD, No LAD, No accessory respiratory muscle use Cardiovascular Regular Rate, Normal S1, Normal S2, No Murmurs Lungs Diminished airflow in all lung fiels with inspiratory / expiriation wheezing without crackles Abdomen Normal Bowel Sounds, Soft, No Tenderness, No Hepatospenomegaly, No Masses Neurological Normal Speech, Cranial Nerves 3-12 NL Extremities No Cyanosis, No Edema Vascular Normal Pulses, Pulses Symmetrical Last 24 Hrs of Labs/Conner: Laboratory Tests 12/02/17 0730: Anion Gap 10, Estimated GFR > 60, BUN/Creatinine Ratio 18.3, Glucose 117 H, Calcium 9.1, Total Bilirubin 0.6, AST 31, ALT 30, Alkaline Phosphatase 57, Troponin I < 0.01, Total Protein 6.9, Albumin 3.9, Globulin 3.0, Albumin/ Globulin Ratio 1.3, D-Dimer High Sensitivty 214, CBC w Diff MAN DIFF ORDERED, RBC 5.21, MCV 94.3, MCH 31.8 H, MCHC 33.7, RDW 13.4, MPV 8.2, Gran % 83.3 H, Lymphocytes % 8.6 L, Monocytes % 7.9, Eosinophils % 0.1, Basophils % 0.1, Absolute Granulocytes 4.3, Absolute Lymphocytes 0.4 L, Absolute Monocytes 0.4, Absolute Eosinophils 0, Absolute Basophils 0, Platelet Estimate ADEQUATE, Normocytic RBCs VERIFIED, Normochromic RBCs VERIFIED Microbiology 12/02 1014 LOWER RESP: Respiratory Culture - ORD 12/02 1014 LOWER RESP: Gram Stain - ORD Assessment/Plan Assessment: 62-year-old woman with significant medical history of severe COPD and current tobacco use seen for evaluation of progressively worsening shortness of breath with productive cough. Patient reports mild respiratory distress with persistence of her productive cough and epigastric chest pain while at rest currently. Patient was hypoxic to 79% on room air in triage improving to the 90s with supplemental oxygen via high flow. Physical examination was significant for diminished airflow with scattered expiratory wheezing without crackles. Labs including CBC, serum chemistry, hepatic function panel, troponin, and d-dimer are all negative or unremarkable. Chest x-ray demonstrated stable appearing COPD. EKG demonstrated sinus tachycardia with poor R-wave progression and hyperacute precordial T waves with QS complexes in V1-V2. PFT (09/29/16) demonstrated severe COPD. Patient received Solu-Medrol 125 mg, aspirin 81 mg, Tylenol 1 g IV, and a DuoNeb treatment in the ED. Clinically patient appears to have acute hypoxic respiratory failure secondary to a COPD exacerbation in the context of current smoking and probable viral/ bacterial bronchitis. Patient's chest pain classically represents that of dyspepsia for which a GI cocktail will be given and patient continued on a PPI especially while on steroids. Patient is to be admitted to the telemetry floor for telemetry monitoring, serial EKG/troponin, intravenous steroids and antibiotics, and pulmonology evaluation. Problem List -Acute hypoxic respiratory failure -COPD exacerbation -Probable bronchitis, viral versus bacterial -Nonspecific EKG changes -Epigastric chest discomfort, probable dyspepsia -history of severe COPD, not on home oxygen -Current smoker, 50+ pack year history, now smoking 1 PPD -Excessive EtOH use, 3-4 beers/day Plan -Admit to telemetry floor -Telemetry monitoring -Supplemental oxygen, goal greater than 92%, taper as tolerated -TRC with scheduled nebs every 6 hours -CIWA -Solu-Medrol 40 mg IV every 8 hours -Azithromycin 500 mg IV daily -Mucinex 600 mg p.o. twice daily -Omeprazole 40 mg PO Daily -GI Cocktail -Hold Brio/Spiriva while receiving scheduled nebs -Pulmonology consult for severe COPD -Sputum culture -Serial troponin/EKG until peak or 3 negative sets -Pain control with acetaminophen -Regular diet -DVT prophylaxis with Lovenox -Full code As Ranked By This Provider Problem List: 1. COPD exacerbation 2. Acute electrocardiogram changes Core Measures/Misc (03/14) Acute Coronary Syndrome ACS Diagnosis: No Congestive Heart Failure Congestive Heart Failure Diagnosis No Cerebrovascular Accident CVA/TIA Diagnosis: No VTE (View Protocol) VTE Risk Factors Age>40 No Mechanical VTE Prophylaxis d/t N/A MechProphylax Ordered No VTE Pharm Prophylaxis d/t NA PharmProphylax ordered Sepsis (View protocol) Sepsis Present: No If YES complete Sepsis Event Note If YES complete Sepsis Event Note Benjamin Roman 12/02/17 1028: Core Measures/Misc (03/14) Sepsis (View protocol) If YES complete Sepsis Event Note If YES complete Sepsis Event Note Attending MD Review Statement Attending Statement Attending MD Statement: examined this patient, discuss w/resident/PA/INDUSTRIAL EDUCATION TEACHER, agreed w/resident/PA/INDUSTRIAL EDUCATION TEACHER, discussed with family, reviewed EMR data (avail), discussed with nursing, discussed with case mgmt, reviewed images, amended to note
[2017-12-02 10:32] VITALS: BP 90/60
--- NOTE | 2017-12-02 10:45 | Cons- Pulmonary ---
General Information and HPI Consulting Request Date of Consult: 12/02/17 Requested By: Dr. Roman Reason for Consult: COPD exacerbation History of Present Illness: 62 year old woman. Last seen in office 09/2016. Active smoker ~1PPD. Rx o2, BREO, Spiriva Respimat, albuterol mdi and nebulized. Very severe emphysema with BD response and severely reduced DLCO. Still smoking, trying to quit, previously declined nicotine replacement due to nausea. Has been on O2, but returned it secondary to finances. Has animals at home. She c/o fatigue, chronic cough with occasionaly clear/white phlegm. Dyspnea at rest and exertion. Hypoxemic respiratory failure secondary to COPD Tobacco dependence She feels that she has had recent sick contacts with URI symptoms, also feels she may have seasonal allergies. Allergies/Medications Allergies: Coded Allergies: NO KNOWN ALLERGIES (06/05/14) Home Med List: Albuterol Sulfate 1.25 MG/3 ML VIAL.NEB 1 Vial INH/ERMELINDA Q4-6 PRN SOB (Reported ) Albuterol Sulfate (Proair Hfa) 90 MCG HFA.AER.AD 2 PUF INH Q4-6 PRN PRN SHORTNESS OF BREATH Fluticasone/Vilanterol (Breo Ellipta 100-25 Mcg INH) 100 MCG-25 MCG/DOSE BLST.W.DEV 1 PUF INH DAILY COPD (Reported) Tiotropium [place] (Spiriva Respimat) 2.5 MCG/ACTUATION MIST.INHAL 2 PUF INH DAILY COPD Current Medications: Current Medications Sig/Nishant Start time Last Medication Dose Route Stop Time Status Admin Acetaminophen 650 MG Q6P PRN 12/02 1015 AC PO Acetaminophen 0 .STK-MED ONE 12/02 749 DC IV Acetaminophen 1,000 MG ONCE ONE 12/02 729 DC 12/02 IV 12/02 730 0750 Albuterol Sulfate 3 ML Q6 12/02 1200 AC INH Albuterol Sulfate 3 ML ONCE ONE 12/02 729 DC 12/02 INH 12/02 730 0735 Aspirin 0 .STK-MED ONE 12/02 0750 DC PO Aspirin 81 MG ONCE ONE 12/02 729 DC 12/02 PO 12/02 0631 0750 Azithromycin 500 MG DAILY 12/02 1011 AC 12/02 Sodium Chloride 250 ML IV 1030 Enoxaparin Sodium 40 MG DAILY 12/03 0900 AC SC Guaifenesin 600 MG Q12 12/02 1011 AC 12/02 PO 1030 Ipratropium [place] 2.5 ML Q6 12/02 1200 AC INH Ipratropium [place] 2.5 ML ONCE ONE 12/02 0630 DC 12/02 INH 12/02 0631 0735 Methylprednisolone 40 MG Q8 12/02 1400 AC IV Methylprednisolone 0 .STK-MED ONE 12/02 0750 DC .ROUTE Methylprednisolone 125 MG ONCE ONE 12/02 0730 DC 12/02 IV 12/02 0631 0750 Omeprazole 0 .STK-MED ONE 12/02 1030 DC PO Omeprazole 40 MG DAILY AC 12/02 1012 AC 12/02 PO 1030 Review of Systems Review of Systems Constitutional: Reports: malaise, weakness. Denies: chills, diaphoresis, fever. EENTM: Denies: double vision, visual changes, icterus. Cardiovascular: Denies: chest pain, edema, orthopena, peripheral edema, syncope. Respiratory: Reports: cough, short of breath, sputum production, wheezing. Denies: hemoptysis, orthopnea, stridor. GI: Reports: nausea. Denies: abdominal pain, bloating, constipation, diarrhea, distention. Genitourinary: Denies: discharge, hematuria. Musculoskeletal: Denies: back pain, joint pain. Skin: Denies: change in skin color, rash. Neurological/Psychological: Denies: cognitive dysfunction, confusion, headache. Hematologic/Endocrine: Denies: no symptoms. Immunologic/Allergic: Reports: see HPI. 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 BROTHER Relation not specified for: FH: COPD (chronic obstructive pulmonary disease) FH: COPD (chronic obstructive pulmonary disease) FH: diabetes mellitus Psychosocial History Who Do You Live With? child Services at Home: None Primary Language: Greek Exam & Diagnostic Data Last 24 Hrs of Vital Signs/I&O Vital Signs Date Time Temp Pulse Resp B/P B/P Pulse O2 O2 Flow FiO2 Mean Ox Delivery Rate 12/02 1032 100.0 91 20 90/60 12/02 1032 100.0 91 20 90/60 96 Nasal 60% Cannula 12/02 0841 100 24 60 98 Nasal 50% Cannula 12/02 0753 98 Non 60% ReBreather 12/02 0752 117 26 98 Non 60% ReBreather 12/02 0738 100 Non 100% ReBreather 12/02 0704 98.6 125 22 106/66 79 Nasal 5.0L Cannula Intake & Output 12/02 1600 12/02 0800 12/02 0000 Intake Total 250 Output Total Balance 250 Intake, IV 250 Patient 89 lb 15.99 oz Weight Weight Reported by Patient Measurement Method Physical Exam General Appearance: alert, awake, anxious, cachetic, moderate distress Head: atraumatic, normal appearance Eyes: Bilateral: normal appearance, EOMI. Ears, Nose, Throat: normal pharynx, normal ENT inspection Neck: normal inspection Respiratory: decreased breath sounds, accessory muscle use, respiratory distress Cardiovascular: regular rate/rhythm Gastrointestinal: normal bowel sounds, soft, non-tender Back: normal inspection Extremities: normal inspection, no edema Neurologic/Psych: awake, alert, oriented x 3 Cranial Nerves: normal hearing, normal speech Skin: intact Last 48 Hrs of Labs/Conner: Laboratory Tests 12/02/17 0730: Anion Gap 10, Estimated GFR > 60, BUN/Creatinine Ratio 18.3, Glucose 117 H, Calcium 9.1, Total Bilirubin 0.6, AST 31, ALT 30, Alkaline Phosphatase 57, Troponin I < 0.01, Total Protein 6.9, Albumin 3.9, Globulin 3.0, Albumin/ Globulin Ratio 1.3, D-Dimer High Sensitivty 214, CBC w Diff MAN DIFF ORDERED, RBC 5.21, MCV 94.3, MCH 31.8 H, MCHC 33.7, RDW 13.4, MPV 8.2, Gran % 83.3 H, Lymphocytes % 8.6 L, Monocytes % 7.9, Eosinophils % 0.1, Basophils % 0.1, Absolute Granulocytes 4.3, Absolute Lymphocytes 0.4 L, Absolute Monocytes 0.4, Absolute Eosinophils 0, Absolute Basophils 0, Platelet Estimate ADEQUATE, Normocytic RBCs VERIFIED, Normochromic RBCs VERIFIED Assessment/Plan Impression/Plan: Impression 62 year old woman * acute exacerbation of COPD - secondary to tobacco dependence, possible underlying bronchitis and seasonal allergies Plan -solumedrol IV - will taper with you -trc/tatiana -smoking cessation counseled -had LDCT 09/2016 - would benefit from annual exams (can do as outpt) -case management/social work input regarding financial stress and affordability of oxygen -please assess o2 needs during clinical course -pt on BREO and Spiriva respimat at home - can be continued outpatient -pt offered nicotine replacement, currently declined - she may request DVT prophylaxis at all times D/w patient, sister and housestaff Consult Acknowledgment - Thank you for your consult request.
[2017-12-02 13:19] VITALS: BP 90/64
[2017-12-02 21:45] VITALS: BP 104/66
[2017-12-03] VITALS: BP 104/66
[2017-12-03 02:00] VITALS: BP 104/62
[2017-12-03 04:00] VITALS: BP 90/62
[2017-12-03 06:51] VITALS: BP 98/64
--- NOTE | 2017-12-03 07:08 | PN- Housestaff ---
Georgie STEIN,Madelaine 12/03/17 0708: Subjective Follow-up For: -Acute hypoxic respiratory failure -COPD exacerbation -Probable bronchitis, viral versus bacterial -Nonspecific EKG changes -Epigastric chest discomfort, probable dyspepsia Tele-Events Since Last Visit: No overnight events, heart rate 91, PVCs Subjective: Patient was seen and examined at bedside, she continues to complain of significant shortness of breath, in addition she complains of sore throat because of severe cough last night. Currently she is on 5 L nasal oxygen. Reports improvement of her chest pain, denies any nausea vomiting diarrhea or constipation Review of Systems Constitutional: Reports: malaise, weakness. Cardiovascular: Reports: chest pain. Respiratory: Reports: cough, short of breath, sputum production. Gastrointestinal: Denies: no symptoms. Genitourinary: Denies: no symptoms. Objective Last 24 Hrs of Vital Signs/I&O Vital Signs Date Time Temp Pulse Resp B/P B/P Pulse O2 O2 Flow FiO2 Mean Ox Delivery Rate 12/03 0755 98 Nasal 8L Cannula 12/03 0651 97.5 84 20 98/64 95 Nasal Cannula 12/03 0400 81 90/62 08 0200 81 104/62 /08 0000 81 104/66 06/08 0000 95 Nasal 8L Cannula 12/02 2145 95 16 104/66 98 Nasal 6.0L Cannula 12/02 1717 Room Air 12/02 1600 Aerosol Mask 12/02 1420 Nasal 8L Cannula 12/02 1406 94 Nasal 8L Cannula 12/02 1342 97 Nasal 45% Cannula 12/02 1319 98.4 85 20 90/64 93 /07 1245 Nasal 45% Cannula 12/02 1204 98.3 82 14 90/55 92 Nasal 45% Cannula 07 1032 100.0 91 20 90/60 06/07 1032 100.0 91 20 90/60 96 Nasal 60% Cannula /07 0841 100 24 91/60 98 Nasal 50% Cannula Intake & Output 12/03 1600 08 0800 06/08 0000 Intake Total 440 Output Total Balance 440 Intake, Oral 440 Physical Exam General Appearance: Alert, Cooperative, No Acute Distress HEENT: Atraumatic, PERRLA, EOMI, Mucous Membr. moist/pink Neck: Supple, No JVD Cardiovascular: Normal S1, Normal S2, No Murmurs Lungs: DECREASED AIR ENTERY WITH BILATERAL WHEEZES AND RALES Abdomen: Normal Bowel Sounds, Soft, No Tenderness Neurological: Normal Speech, Strength at 5/5 X4 Ext, Normal Tone, Sensation Intact, Cranial Nerves 3-12 NL Extremities: No Clubbing, No Cyanosis, No Edema Assessment/Plan Assessment: 62-year-old woman with significant medical history of severe COPD and current tobacco use seen for evaluation of progressively worsening shortness of breath with productive cough. Clinically patient appears to have acute hypoxic respiratory failure secondary to a COPD exacerbation in the context of current smoking and probable viral/ bacterial bronchitis. Patient's chest pain classically represents that of dyspepsia for which a GI cocktail will be given and patient continued on a PPI especially while on steroids. Patient is to be admitted to the telemetry floor for telemetry monitoring, serial EKG/troponin, intravenous steroids and antibiotics, and pulmonology evaluation. Problem List -Acute hypoxic respiratory failure -COPD exacerbation -Probable bronchitis, viral versus bacterial -Nonspecific EKG changes -Epigastric chest discomfort, probable dyspepsia -history of severe COPD, not on home oxygen -Current smoker, 50+ pack year history, now smoking 1 PPD -Excessive EtOH use, 3-4 beers/day Plan -Continue to monitor on telemetry floor -Supplemental oxygen, goal greater than 92%, taper as tolerated -TRC with scheduled nebs every 6 hours -CIWA -Solu-Medrol was decreased to 40 mg IV every 8 hours -Continue azithromycin 500 mg IV daily -Mucinex 600 mg p.o. twice daily -Omeprazole 40 mg PO Daily -GI Cocktail -Hold Brio/Spiriva while receiving scheduled nebs - follow instrumentation and controls technician commendation -Follow-up on sputum culture -Serial troponin/EKG were negative which ruled out ACS -Pain control with acetaminophen -Regular diet -DVT prophylaxis with Lovenox -Full code Problem List: 1. Chest pain 2. COPD exacerbation Pain Ratin Pain Location: THROAT Pain Goal: Pain 4 or less Pain Plan: PATHWYA Tomorrow's Labs & Rationales: CBC MARKP Benjamin Roman 12/03/17 1044: Attending MD Review Statement Attending Statement Attending MD Statement: examined this patient, discuss w/resident/PA/ENGINE EMISSION TECHNICIAN, agreed w/resident/PA/ENGINE EMISSION TECHNICIAN, discussed with family, reviewed EMR data (avail), discussed with nursing, discussed with case mgmt, reviewed images, amended to note Attending Assessment/Plan: Patient with tripod position, accessory muscle usage+, not able to speak in full sentences. labs and imaging noted. Patient admitted here for shortness of breath at rest from COPD exacerbation with h/o severe COPD on recently done PFTs. Pulmoanry is consulted and recommnedations followed. Taper solu-medrol, continue bronchodilator therapy, Maintain O2 sat around 92. Continue monitor clinically.
--- NOTE | 2017-12-03 07:13 | PN- Pulmonary ---
Subjective HPI/Critical Care Issues: pt seen and examined dyspnea slightly improved and less tachypneic she had an uncomfortable night with some nausea, cough and difficulty sleeping no cp, no n/d/c, no fevers, no chills, still using accessory muscles Objective Current Medications: Current Medications Sig/Nishant Start time Last Medication Dose Route Stop Time Status Admin Acetaminophen 650 MG Q6P PRN 12/02 1015 AC PO Acetaminophen 0 .STK-MED ONE 12/02 0750 DC IV Acetaminophen 1,000 MG ONCE ONE 12/02 729 DC 12/02 IV 12/02 0631 0750 Albuterol Sulfate 3 ML EVERY 4 HRS/AWAKE 12/02 1600 AC 12/02 INH 2135 Albuterol Sulfate 3 ML Q6 12/02 1200 DC INH Albuterol Sulfate 3 ML ONCE ONE 12/02 729 DC 12/02 INH 12/02 0631 0735 Aspirin 0 .STK-MED ONE 12/02 0750 DC PO Aspirin 81 MG ONCE ONE 12/02 0630 DC 12/02 PO 12/02 0631 0750 Azithromycin 500 MG DAILY 12/02 1011 AC 12/02 Sodium Chloride 250 ML IV 1030 Dextrose/Sodium 1,000 ML Q13H 12/03 0300 AC 12/03 Chloride IV 0314 Enoxaparin Sodium 40 MG DAILY 12/03 0900 AC SC Guaifenesin 600 MG Q12 12/02 1011 AC 12/02 PO 2142 Ipratropium [place] 2.5 ML EVERY 4 HRS/AWAKE 12/02 1600 AC 12/02 INH 2135 Ipratropium [place] 2.5 ML Q6 12/02 1200 DC INH Ipratropium [place] 2.5 ML ONCE ONE 12/02 0630 DC 12/02 INH 12/02 0631 0735 Melatonin 5 MG AT BEDTIME 12/03 0245 AC 12/03 PO 0313 Methylprednisolone 40 MG Q6H 12/02 2000 AC 12/03 IV 0216 Methylprednisolone 40 MG Q8 12/02 1400 DC IV Methylprednisolone 0 .STK-MED ONE 12/02 1220 DC .ROUTE Methylprednisolone 40 MG Q6 12/02 1200 DC 12/02 IV 1421 Methylprednisolone 0 .STK-MED ONE 12/02 0750 DC .ROUTE Methylprednisolone 125 MG ONCE ONE 12/02 0730 DC 12/02 IV 12/02 0631 0750 Omeprazole 0 .STK-MED ONE 12/02 1030 DC PO Omeprazole 40 MG DAILY AC 12/02 1012 AC 12/02 PO 1030 Ondansetron HCl 4 MG ONCE ONE 12/02 1845 DC 12/02 IV 12/02 1846 1900 Sodium Chloride 500 ML BOLUS ONE 12/03 0245 DC 12/03 IV 12/03 0344 0314 Vital Signs & I&O Last 24 Hrs of Vitals and I&O: Vital Signs Date Time Temp Pulse Resp B/P B/P Pulse O2 O2 Flow FiO2 Mean Ox Delivery Rate 12/03 0651 97.5 84 20 98/64 95 Nasal Cannula 12/03 0400 81 90/62 12/03 0200 81 104/62 12/03 0000 81 104/66 12/03 0000 95 Nasal 8L Cannula 12/02 2145 95 16 10466 98 Nasal 6.0L Cannula 12/02 1717 Room Air 12/02 1600 Aerosol Mask 12/02 1420 Nasal 8L Cannula 12/02 1406 94 Nasal 8L Cannula 12/02 1342 97 Nasal 45% Cannula 12/02 1319 98.4 85 20 90/64 93 12/02 1245 Nasal 45% Cannula 12/02 1204 98.3 82 14 90/55 92 Nasal 45% Cannula 12/02 1032 100.0 91 20 90/60 0607 1032 100.0 91 20 90/60 96 Nasal 60% Cannula 12/02 0841 100 24 91/60 98 Nasal 50% Cannula 12/02 0753 98 Non 60% ReBreather 12/02 0752 117 26 98 Non 60% ReBreather 12/02 0738 100 Non 100% ReBreather Intake & Output 12/03 0800 12/03 0000 12/02 1600 Intake Total 440 450 Output Total Balance 440 450 Intake, IV 250 Intake, Oral 440 200 Patient 86 lb 3 oz Weight Weight Bed scale Measurement Method Exam Other Physical Findings: gen - aaox3 heent - nasal cannula cvs - s1, s2 lungs - prolonged end expiratory phase, dimnished bs abd - soft, thin ext - without edema Results Last 24 Hrs of Lab Results: Laboratory Tests 12/03/17 0615: Sodium Pending, Potassium Pending, Chloride Pending, Carbon Dioxide Pending, Anion Gap Pending, BUN Pending, Creatinine Pending, BUN/Creatinine Ratio Pending , Magnesium Pending, CBC w Diff Pending, WBC Pending, RBC Pending, Hgb Pending, Hct Pending, MCV Pending, MCH Pending, MCHC Pending, RDW Pending, Plt Count Pending, MPV Pending 12/02/17 1955: Troponin I < 0.01 12/02/17 1400: Troponin I < 0.01 12/02/17 1400: Troponin I Cancelled 12/02/17 0730: Anion Gap 10, Estimated GFR > 60, BUN/Creatinine Ratio 18.3, Glucose 117 H, Calcium 9.1, Total Bilirubin 0.6, AST 31, ALT 30, Alkaline Phosphatase 57, Troponin I < 0.01, Total Protein 6.9, Albumin 3.9, Globulin 3.0, Albumin/ Globulin Ratio 1.3, D-Dimer High Sensitivty 214, CBC w Diff MAN DIFF ORDERED, RBC 5.21, MCV 94.3, MCH 31.8 H, MCHC 33.7, RDW 13.4, MPV 8.2, Gran % 83.3 H, Lymphocytes % 8.6 L, Monocytes % 7.9, Eosinophils % 0.1, Basophils % 0.1, Absolute Granulocytes 4.3, Absolute Lymphocytes 0.4 L, Absolute Monocytes 0.4, Absolute Eosinophils 0, Absolute Basophils 0, Platelet Estimate ADEQUATE, Normocytic RBCs VERIFIED, Normochromic RBCs VERIFIED Impression/Plan Impression/Plan Impression/Plan: Impression 62 year old woman * acute exacerbation of COPD - secondary to tobacco dependence, possible underlying bronchitis and seasonal allergies Plan -solumedrol IV - reduce to q8h - will taper with you -trc/nebs -smoking cessation counseled -had LDCT 09/2016 - would benefit from annual exams (can do as outpt) -please assess o2 needs during clinical course -pt on BREO and Spiriva respimat at home - can be continued outpatient -pt offered nicotine replacement, currently declined - she may request DVT prophylaxis at all times -case management/social work input regarding financial stress and affordability of oxygen, pt concerned about finances
[2017-12-03 07:27] LABS: ABSOLUTE BASOPHIL COUNT 0 /CUMM (0.0-0.2); ABSOLUTE EOSINOPHIL COUNT 0 /CUMM (0.0-0.7); ABSOLUTE GRANULOCYTE CT 5.3 /CUMM (1.4-6.5); ABSOLUTE LYMPH COUNT 0.2 /CUMM (1.2-3.4); ABSOLUTE MONOCYTE COUNT 0.3 /CUMM (0.10-0.60); BASOPHIL % 0 % (0.0-2.0); EOSINOPHIL % 0 % (0-5); HEMATOCRIT 47.4 % (37-47); MEAN CORPUSCULAR HGB 31.5 PG (27.0-31.0); MEAN CORPUSCULAR HGB CONC 32.8 G/DL (33.0-37.0); MEAN CORPUSCULAR VOLUME 96.1 FL (81.0-99.0); MEAN PLATELET VOLUME 8.6 FL (7.4-10.4); PLATELET COUNT 127 /CUMM (130-400); RED BLOOD CELL CT 4.93 /CUMM (4.20-5.40); WHITE BLOOD CELL COUNT 5.8 /CUMM (4.8-10.8)
[2017-12-03 08:36] LABS: GRANULOCYTE % 90.3 % (42.2-75.2)
[2017-12-03 14:00] VITALS: BP 130/80; BP 96/60
--- NOTE | 2017-12-03 15:42 | PN- Student ---
Subjective Subjective: Student H&P HPI: Patient is a 62 YOF with a known history of COPD who presented to the ER after two days of rapidly worsening shortness of breath on top of two weeks slowly worsening dyspnea. She also has a productive cough with white sputum, and a new onset of chest pain. She describes the pain as an epigastric burning sensation that goes all the way up to her throat, and she says that she can feel reflux coming up at times. She was admitted to [facility] 3.5 months ago for an acute exacerbation of her COPD, was succesfully treated with IV antibiotics and steroids, and was discharged home with oxygen and instructions to follow up with a anchor operator. She was subsequently lost to follow-up and stopped her home O2 unilaterlly. Patient also states that some kind of illness has been going around work, and she thinks she caught it. ROS: In the ER, patient denied - headache, fever, chills, blurred/double vision, lightheadedness/dizziness, nausea, vomiting, diarrhea, constipation, urinary symptoms. PMH: COPD (emphysema) PSH: Noncontributory Home Meds: Albuterol Sulfate (nebulized) Albuterol Sulfate (rescue inhaler) Fluticasone/Vilanterol Tiotropium Kramer FH: Diabetes COPD SH: Current smoker Heavy drinker Denies illicit drug use Lives at home with son, works for [employer] Today: Patient complains of continued shortness of breath, cough, and epigastric pain. She states that she is not normally like this. She became acutely short of breath this afternoon while I was talking with her, and began saturating in the low 80s. Respiratory therapy was called, her NC O2 was increased from 2.5L to 5L , and a nebulizer treatment was administered which rapidly improved her symptoms. Objective Objective: On physical exam, the patient is alert and oriented but speaking in clipped three word sentances. She appears moderately distressed. Skin is red, warm, and dry. Lung sounds are distant with diffuse expiratory wheezing but no crackles. Heart has a RRR, normal S1/S2, with no MRG. There is no JVD or peripheral edema. A chest X-ray in the ER showed emphysematous changes, normal cardiac silhouette, and no edema or consolodation. Serial troponins were negative Sputum cultures were collected but not delivered to the lab. Current Medications Sig/Nishant Start time Last Medication Dose Stop Time Status Admin Acetaminophen 650 MG Q6P PRN 12/02 1015 AC (Tylenol) Al Hydroxide/Mg 30 ML Q4-6 PRN PRN 12/03 1015 AC Hydroxide (Maalox Plus) Albuterol Sulfate 3 ML EVERY 4 HRS/AWAKE 12/02 1600 AC 12/03 (Proventil) 1344 Azithromycin 500 MG DAILY 12/02 1011 AC 12/03 (Zithromax) 0857 Sodium Chloride 250 ML (Normal Saline 0.9%) Benzocaine/Menthol 1 TORIE Q2P PRN 12/03 0830 AC (Chloraseptic Lozenges) Enoxaparin Sodium 40 MG DAILY 12/03 0900 AC (Lovenox) Guaifenesin 600 MG Q12 12/02 1011 AC 12/03 (Mucinex) 0857 Insulin Aspart 0 TIDAC 12/03 1200 AC (NovoLOG) Ipratropium [place] 2.5 ML EVERY 4 HRS/AWAKE 12/02 1600 AC 12/03 (Atrovent) 1255 Melatonin 5 MG AT BEDTIME 12/03 0245 AC 12/03 (Melatonin) 0313 Methylprednisolone 40 MG Q8 12/03 1400 AC 12/03 (Solumedrol) 1323 Nystatin 5 ML 4 TIMES/DAY 12/03 1002 AC 12/03 (Mycostatin Susp) 1323 Omeprazole 40 MG DAILY AC 12/02 1012 AC 12/03 (Prilosec) 0716 Laboratory Tests 12/03 12/02 12/02 0615 1955 1400 Chemistry Sodium (137 - 145 mmol/L) 135 L Potassium (3.5 - 5.1 mmol/L) 5.5 H Chloride (98 - 107 mmol/L) 95 L Carbon Dioxide (22 - 30 mmol/L) 34 H Anion Gap (5 - 16) 6 BUN (7 - 17 mg/dL) 14 Creatinine (0.5 - 1.0 mg/dL) 0.5 Estimated GFR (>60 ml/min) > 60 BUN/Creatinine Ratio (7 - 25 %) 28.0 H Magnesium (1.6 - 2.3 mg/dL) 1.8 Troponin I (< 0.11 ng/ml) < 0.01 < 0.01 Hematology CBC w Diff NO MAN DIFF REQ WBC (4.8 - 10.8 /CUMM) 5.8 RBC (4.20 - 5.40 /CUMM) 4.93 Hgb (12.0 - 16.0 G/DL) 15.5 Hct (37 - 47 %) 47.4 H MCV (81.0 - 99.0 FL) 96.1 MCH (27.0 - 31.0 PG) 31.5 H MCHC (33.0 - 37.0 G/DL) 32.8 L RDW (11.5 - 14.5 %) 13.0 Plt Count (130 - 400 /CUMM) 127 L MPV (7.4 - 10.4 FL) 8.6 Gran % (42.2 - 75.2 %) 90.3 H Lymphocytes % (20.5 - 51.1 %) 3.8 L Monocytes % (1.7 - 9.3 %) 5.9 Eosinophils % (0 - 5 %) 0 Basophils % (0.0 - 2.0 %) 0 Absolute Granulocytes (1.4 - 6.5 /CUMM) 5.3 Absolute Lymphocytes (1.2 - 3.4 /CUMM) 0.2 L Absolute Monocytes (0.10 - 0.60 /CUMM) 0.3 Absolute Eosinophils (0.0 - 0.7 /CUMM) 0 Absolute Basophils (0.0 - 0.2 /CUMM) 0 07 0607 1400 0730 Chemistry Sodium (137 - 145 mmol/L) 135 L Potassium (3.5 - 5.1 mmol/L) 4.9 Chloride (98 - 107 mmol/L) 93 L Carbon Dioxide (22 - 30 mmol/L) 32 H Anion Gap (5 - 16) 10 BUN (7 - 17 mg/dL) 11 Creatinine (0.5 - 1.0 mg/dL) 0.6 Estimated GFR (>60 ml/min) > 60 BUN/Creatinine Ratio (7 - 25 %) 18.3 Glucose (65 - 99 mg/dL) 117 H Calcium (8.4 - 10.2 mg/dL) 9.1 Total Bilirubin (0.2 - 1.3 mg/dL) 0.6 AST (14 - 36 U/L) 31 ALT (9 - 52 U/L) 30 Alkaline Phosphatase (<127 U/L) 57 Troponin I (< 0.11 ng/ml) Cancelled < 0.01 Total Protein (6.3 - 8.2 g/dL) 6.9 Albumin (3.5 - 5.0 g/dL) 3.9 Globulin (1.9 - 4.2 gm/dL) 3.0 Albumin/Globulin Ratio (1.1 - 2.2 %) 1.3 Coagulation D-Dimer High Sensitivty (0 - 243 ng/ml) 214 Hematology CBC w Diff MAN DIFF ORDERED WBC (4.8 - 10.8 /CUMM) 5.1 RBC (4.20 - 5.40 /CUMM) 5.21 Hgb (12.0 - 16.0 G/DL) 16.5 H Hct (37 - 47 %) 49.1 H MCV (81.0 - 99.0 FL) 94.3 MCH (27.0 - 31.0 PG) 31.8 H MCHC (33.0 - 37.0 G/DL) 33.7 RDW (11.5 - 14.5 %) 13.4 Plt Count (130 - 400 /CUMM) 142 MPV (7.4 - 10.4 FL) 8.2 Gran % (42.2 - 75.2 %) 83.3 H Lymphocytes % (20.5 - 51.1 %) 8.6 L Monocytes % (1.7 - 9.3 %) 7.9 Eosinophils % (0 - 5 %) 0.1 Basophils % (0.0 - 2.0 %) 0.1 Absolute Granulocytes (1.4 - 6.5 /CUMM) 4.3 Absolute Lymphocytes (1.2 - 3.4 /CUMM) 0.4 L Absolute Monocytes (0.10 - 0.60 /CUMM) 0.4 Absolute Eosinophils (0.0 - 0.7 /CUMM) 0 Absolute Basophils (0.0 - 0.2 /CUMM) 0 Platelet Estimate (ADEQUATE) ADEQUATE Normocytic RBCs VERIFIED Normochromic RBCs VERIFIED Vital Signs Date Time Temp Pulse Resp B/P B/P Pulse O2 O2 Flow FiO2 Mean Ox Delivery Rate 12/03 1440 62 06/08 1400 97.0 80 20 96/60 93 Nasal Cannula 12/03 1347 97 Nasal 4.0L Cannula 12/03 1240 97 Nasal 4.0L Cannula 12/03 1220 76 06/08 1000 78 08 0800 92 12/03 0800 96 Nasal 4.0L Cannula 12/03 0755 98 Nasal 8L Cannula 12/03 0651 97.5 84 20 98/64 95 Nasal Cannula 12/03 0400 81 90/62 08 0200 81 104/62 /08 0000 81 104/66 06/08 0000 95 Nasal 8L Cannula 12/02 2145 95 16 104/66 98 Nasal 6.0L Cannula 12/02 1717 Room Air 12/02 1600 Aerosol Mask Assessment/Plan Assessment: 62 YOF with PMH of COPD presents with acutely worsening dyspnea, cough, and acid reflux. Problem 1: Acute dyspnea Ddx: COPD exacerbation due to viral bronchitis, oral candidiasis, or GERD. Aspiration pneumonitis and pneumonia are unlikely due to negative X-ray findings , but a repeat X-ray may be warented if patient becomes febrile. - Continue IV Methylprednisolone - Continue IV Azithromycin - Titrate NC O2 to SpO2 > 92% - Nebulized albuterol Q4h and PRN - Continue Ipratropium inhaler - Continue Guaifenesin - Continue Omeprazole - Continue oral nystatin - Insulin sliding scale for glycemic control in the setting of systemic steroids Problem 2: New onset GERD Ddx: PUD (stress ulcer vs H. Pylori), Gastritis, esophegeal dysmotility - 1 month course of Omeprazole as a home medication - Follow-up with PCP for resolution or recurrance. Problem 3: Hyperkalemia Ddx: Worsening respiratory acidosis, tertiary adrenal insufficiency Due to the acute onset of this problem and the concurrent hypochloremia, it is more likely to be due to acidosis, however, in the setting of hyponatremia and systemic methylprednisolone use, adrenal insufficiency should be considered. - Continue telemetry - Repeat BEP tomorrow AM - If persistent or worsening, consider obatining ABG.
[2017-12-03 22:15] VITALS: BP 110/82
[2017-12-04] VITALS (8 sets, daily range): BP systolic 81–102; BP diastolic 50–69
[2017-12-04 08:30] LABS: ABSOLUTE BASOPHIL COUNT 0 /CUMM (0.0-0.2); ABSOLUTE EOSINOPHIL COUNT 0 /CUMM (0.0-0.7); ABSOLUTE GRANULOCYTE CT 6.4 /CUMM (1.4-6.5); ABSOLUTE LYMPH COUNT 0.3 /CUMM (1.2-3.4); ABSOLUTE MONOCYTE COUNT 0.4 /CUMM (0.10-0.60); BASOPHIL % 0 % (0.0-2.0); EOSINOPHIL % 0 % (0-5); GRANULOCYTE % 89.8 % (42.2-75.2); HEMATOCRIT 46.6 % (37-47); MEAN CORPUSCULAR HGB 31.6 PG (27.0-31.0); MEAN CORPUSCULAR HGB CONC 32.5 G/DL (33.0-37.0); MEAN PLATELET VOLUME 8.7 FL (7.4-10.4); PLATELET COUNT 114 /CUMM (130-400); RBC DISTRIBUTION WIDTH 13.3 % (11.5-14.5); WHITE BLOOD CELL COUNT 7.2 /CUMM (4.8-10.8)
--- NOTE | 2017-12-04 08:41 | PN- Housestaff ---
Georgie STEIN,Madelaine 12/04/17 0841: Subjective Follow-up For: -Acute hypoxic respiratory failure -COPD exacerbation -Probable bronchitis, viral versus bacterial -Nonspecific EKG changes -Epigastric chest discomfort, probable dyspepsia Tele-Events Since Last Visit: Normal sinus rhythm, 90s, QRS 0.06, W[place] 0.14 Subjective: Patient was seen and examined at bedside, she continues to be very lethargic and short of breath. Overnight her oxygen desaturated and had to be started on the high flow. Her pulse ox was in the 95 range, this morning her ABG showed that pH 7.17, PCO2 112, [id number], bicarbonate 40, the patient had to be started on BiPAP (shows never on BiPAP before) and transferred to the ICU Review of Systems Constitutional: Reports: malaise, weakness. Cardiovascular: Reports: orthopena. Respiratory: Reports: cough, orthopnea, short of breath, sputum production. Gastrointestinal: Denies: no symptoms. Genitourinary: Denies: no symptoms. Musculoskeletal: Denies: no symptoms. Objective Last 24 Hrs of Vital Signs/I&O Vital Signs Date Time Temp Pulse Resp B/P B/P Pulse O2 O2 Flow FiO2 Mean Ox Delivery Rate 12/04 0645 96.9 110 24 90/60 93 Nasal Cannula 12/04 0000 96 Venti Mask 50% 12/03 2245 95 Venti Mask 50% 12/03 2215 96.6 124 24 110/82 70 Nasal 4.0L Cannula 12/03 1811 91 Nasal 4.0L Cannula 12/03 1600 70 12/03 1600 93 Nasal 4.0L Cannula 12/03 1440 62 08 1400 97.0 80 20 96/60 93 Nasal Cannula 12/03 1347 97 Nasal 4.0L Cannula 12/03 1240 97 Nasal 4.0L Cannula 12/03 1220 76 Intake & Output 12/04 1600 12/04 0800 12/04 0000 Intake Total Output Total Balance Patient 88 lb 5 oz 88 lb 5 oz Weight Weight Bed scale Measurement Method Physical Exam General Appearance: Alert, Cooperative, Moderate Distress HEENT: Atraumatic, PERRLA, EOMI, Mucous Membr. moist/pink Cardiovascular: Normal S1, Normal S2 Lungs: markedly diminished air entery in both lung gerardo Abdomen: Normal Bowel Sounds, Soft, No Tenderness Neurological: lethargic and sleepy Extremities: No Clubbing, No Cyanosis, No Edema Assessment/Plan Assessment: 62-year-old woman with significant medical history of severe COPD and current tobacco use seen for evaluation of progressively worsening shortness of breath with productive cough. Clinically patient appears to have acute hypoxic respiratory failure secondary to a COPD exacerbation in the context of current smoking and probable viral/ bacterial bronchitis. Patient's chest pain classically represents that of dyspepsia for which a GI cocktail will be given and patient continued on a PPI especially while on steroids. Patient is to be admitted to the telemetry floor for telemetry monitoring, serial EKG/troponin, intravenous steroids and antibiotics, and pulmonology evaluation. Problem List -Acute hypoxic respiratory failure: Most likely due to COPD exacerbation: she continues to be very lethargic and short of breath. Overnight her oxygen desaturated and had to be started on the high flow. Her pulse ox was in the 95 range, this morning her ABG showed that pH 7.17, PCO2 112, P02 107, bicarbonate 40, the patient had to be started on BiPAP (shows never on BiPAP before) and transferred to the ICU -Probable bronchitis, viral versus bacterial -Nonspecific EKG changes -Epigastric chest discomfort, probable dyspepsia -history of severe COPD, not on home oxygen -Current smoker, 50+ pack year history, now smoking 1 PPD -Excessive EtOH use, 3-4 beers/day Plan transfer to ICU stat -Supplemental oxygen, goal greater than 92%, taper as tolerated -TRC with scheduled nebs every 6 hours -CIWA -Solu-Medrol increased to 40 mg IV every 6 hours -Continue azithromycin 500 mg IV daily -Mucinex 600 mg p.o. twice daily -Omeprazole 40 mg PO Daily -GI Cocktail -Hold Brio/Spiriva while receiving scheduled nebs - follow capsule filler commendation -Follow-up on sputum culture -Serial troponin/EKG were negative which ruled out ACS -Pain control with acetaminophen -Regular diet -DVT prophylaxis with Lovenox -Full code Problem List: 1. COPD exacerbation 2. Acute respiratory failure with hypoxia Pain Ratin Pain Location: N/A Pain Goal: Remain pain free Pain Plan: Pathway Tomorrow's Labs & Rationales: icu bundle, CBC ABG Barron Quan MD 12/04/17 1514: Attending MD Review Statement Attending Statement Attending MD Statement: examined this patient, discuss w/resident/PA/WIRE PREPARATION MACHINE TENDER, agreed w/resident/PA/WIRE PREPARATION MACHINE TENDER, reviewed EMR data (avail) Attending Assessment/Plan: 62F PMH COPD, active smoker admitted for COPD exacerbation. This morning became more confused with rising pCO2, placed on BiPAP with initial worsening but now improving. Still wheezing on exam. Saturation holding steady. Labs reviewed. Plan - Continue in ICU - BiPAP PRN - Continue Solumedrol at current dose - Nebulizer treatments - Follow pulmonary recommendations - Clarify goals of care with family - Continue Azithromycin - Continue home medications - DVT PPx
--- NOTE | 2017-12-04 09:31 | PN- Student ---
Subjective Subjective: Adverse Event: This morning Mrs. John was noted to be significantly less responsive than the day prior. She was alternating betwee not speaking and only being able to get one word out at a time. She was tachypnic with accessory mucle use. SpO2 was normal at 98%, but AM laboratories showed an increased venous CO2. An ABG was done which showed: pH = 7.17 PaCO2 = 111 PaO2 = 107 Patient was transfered to the ICU and placed on BIPAP. During the transfer she perked up a bit, stating that it was exciting. She was able to speak in three word sentances during transfer, and appeared comfortable on BIPAP.
--- NOTE | 2017-12-04 09:42 | Event Note ---
Event Note Event Note: 62-year-old female with past medical history of severe COPD not on oxygen at home, active tobacco user, who is currently being admitted in the telemetry floor for acute exacerbation of COPD had a worsening of her respiratory status as seen in the ABG with pH 7.17, pCO2 112, pO2 107, HCO3 40 on VM, is now transferred here in the ICU for BiPAP and monitoring. Active issues: # Acute on chronic hypoxic hypercarbic respiratory failure, secondary to COPD exacerbation Patient is currently on BiPAP, IV Solu-Medrol 40 mg every 6 hours, IV azithromycin, TRC/nebs continuing. We will check her ABG about 2 hours after the BiPAP for further planning. CXR stat, and her BP reported to be 70/40 (?due to BiPAP just being started), but might benefit from IV NS bolus 500 ml once time, until we get results of CXR. She does not sound congested to me at this point of time. (1020 hrs) Patient might need O2 at home, CM working on it. Patient's Breo and Spiriva continues to be on hold while she is getting in-hospital treatment. Misc: Diet: NPO for BiPAP, otherwise Heart healthy diet DVT ppx: SQ Lovenox, refusing despite explaining her the benefits/risks Code status: Full code IV access: peripheral
--- NOTE | 2017-12-04 10:47 | PN- Pulmonary ---
Subjective HPI/Critical Care Issues: Patient to be more short of breath and have developed acute on chronic hypercapnic respiratory failure now on BiPAP. Chest x-ray is pending. She has developed concomitant hypotension. Chest x-ray has been unrevealing. Bicarbonate has been elevated though there are no baseline blood gases Objective Current Medications: Current Medications Sig/Nishant Start time Last Medication Dose Route Stop Time Status Admin Acetaminophen 650 MG Q6P PRN 12/02 1015 AC PO Al Hydroxide/Mg 30 ML Q4-6 PRN PRN 12/03 1015 AC Hydroxide PO Albuterol Sulfate 3 ML EVERY 4 HRS/AWAKE 12/02 1600 AC 12/04 INH 0821 Azithromycin 500 MG DAILY 12/02 1011 AC 12/04 Sodium Chloride 250 ML IV 0804 Benzocaine/Menthol 1 TORIE Q2P PRN 12/03 0830 AC PO Dextrose/Sodium 1,000 ML Q13H 12/03 0300 DC 12/03 Chloride IV 0314 Enoxaparin Sodium 40 MG DAILY 12/03 0900 AC SC Guaifenesin 600 MG Q12 12/02 1011 AC 12/03 PO 2220 Insulin Aspart 0 TIDAC 12/03 1200 AC SC Ipratropium [place] 2.5 ML EVERY 4 HRS/AWAKE 12/02 1600 AC 12/04 INH 0822 Melatonin 5 MG AT BEDTIME 12/03 0245 AC 12/03 PO 2220 Methylprednisolone 40 MG Q6 12/04 0600 AC 12/04 IV 0628 Methylprednisolone 40 MG Q8 12/03 1400 DC 12/03 IV 2220 Nystatin 5 ML 4 TIMES/DAY 12/03 1002 AC 12/04 PO 0804 Omeprazole 40 MG DAILY AC 12/02 1012 DC 12/04 PO 0628 Ondansetron HCl 4 MG ONCE ONE 12/04 0930 DC 12/04 IV 12/04 0931 0926 Pantoprazole Sodium 40 MG DAILY 12/04 0945 AC 12/04 IV 0954 Patient Medication 1 ED ONE ONE 12/03 1330 DC Teaching ED 12/03 1331 Sodium Chloride 500 ML BOLUS ONE 12/04 1030 AC 12/04 IV 12/04 1129 1024 Sodium Polystyrene 60 ML ONCE ONE 12/03 1630 DC 12/03 Sulfonate PO 12/03 1631 1800 Trimethobenzamide HCl 200 MG ONCE ONE 12/04 0845 DC 12/04 IM 12/04 0946 0954 Vital Signs & I&O Last 24 Hrs of Vitals and I&O: Vital Signs Date Time Temp Pulse Resp B/P B/P Pulse O2 O2 Flow FiO2 Mean Ox Delivery Rate 12/04 0813 98.4 94 26 90/50 12/04 0910 93 94 12/04 0800 90 12/04 0800 97 Venti Mask 50% 12/04 0645 96.9 110 24 90/60 93 Nasal Cannula 12/04 0000 96 Venti Mask 50% 12/03 2245 95 Venti Mask 50% 12/03 2215 96.6 124 24 110/82 70 Nasal 4.0L Cannula 12/03 1811 91 Nasal 4.0L Cannula 12/03 1600 70 12/03 1600 93 Nasal 4.0L Cannula 12/03 1440 62 12/03 1400 97.0 80 20 96/60 93 Nasal Cannula 12/03 1347 97 Nasal 4.0L Cannula 12/03 1240 97 Nasal 4.0L Cannula 12/03 1220 76 Intake & Output 12/04 1600 12/04 0800 12/04 0000 Intake Total Output Total Balance Patient 88 lb 5 oz 88 lb 5 oz Weight Weight Bed scale Measurement Method Oxygen saturation 35% on BiPAP 92% exam for chest shows markedly diminished breath sounds are no wheezes cardiac exam shows regular S1 and S2 abdomen is soft nontender Impression/Plan Impression/Plan Impression/Plan: 62-year-old woman with severe end-stage COPD admitted with exacerbation is developed acute on chronic hypercapnic respiratory failure now on BiPAP. Recommendations: Clarify patient's advanced directives. Repeat blood gas on BiPAP current settings of 16 over 4 respiratory rate 24 FiO2 0.35. Repeat chest x-ray stat. Administer normal saline fluid bolus 500 mL. Repeat labs. Continue IV steroids hold all sedation and narcotics patient should be nothing by mouth until respiratory status improves
--- NOTE | 2017-12-04 11:15 | Event Note ---
Event Note Event Note: Patient is more awake and alert with improving blood gases. Blood pressure improved after normal saline bolus. Patient's son is in contacted and he was appraised of her situation and will come to the hospital pursue discussions regarding direction of care plan Taper FiO2 with saturations allow. Begin IV fluids D5 normal saline at 75 mL an hour. Repeat arterial blood gases in 1 hour. Discussed with housestaff respiratory
--- NOTE | 2017-12-04 11:34 | RADIOLOGY REPORT ---
EXAMINATION: XR PORTABLE CHEST CLINICAL INFORMATION: Severe dyspnea. History of COPD. COMPARISON: 12/02/2017 TECHNIQUE: Portable frontal view of the chest was obtained. FINDINGS: The patient is rotated to the left. Both lungs are hyperexpanded without any discrete focal airspace disease. The cardiomediastinal silhouette is within normal limits. There is no pleural effusion present. Given the difference in technique, overall no significant change since 12/02/2017. IMPRESSION: Stable appearance of the chest.
[2017-12-05] VITALS (12 sets, daily range): BP systolic 85–101; BP diastolic 50–67
[2017-12-05 05:34] LABS: ABSOLUTE BASOPHIL COUNT 0 /CUMM (0.0-0.2); ABSOLUTE EOSINOPHIL COUNT 0 /CUMM (0.0-0.7); ABSOLUTE GRANULOCYTE CT 2.8 /CUMM (1.4-6.5); ABSOLUTE LYMPH COUNT 0.3 /CUMM (1.2-3.4); ABSOLUTE MONOCYTE COUNT 0.2 /CUMM (0.10-0.60); BASOPHIL % 0 % (0.0-2.0); EOSINOPHIL % 0 % (0-5); GRANULOCYTE % 83.7 % (42.2-75.2); MEAN CORPUSCULAR HGB 31.4 PG (27.0-31.0); MEAN CORPUSCULAR HGB CONC 32.1 G/DL (33.0-37.0); MEAN CORPUSCULAR VOLUME 97.9 FL (81.0-99.0); MEAN PLATELET VOLUME 8.1 FL (7.4-10.4); PLATELET COUNT 112 /CUMM (130-400); RBC DISTRIBUTION WIDTH 13.2 % (11.5-14.5); RED BLOOD CELL CT 4.59 /CUMM (4.20-5.40)
[2017-12-05 05:40] LABS: WHITE BLOOD CELL COUNT 3.4 /CUMM (4.8-10.8)
--- NOTE | 2017-12-05 08:24 | PN- Housestaff ---
KarynGeovanna 12/05/17 0824: Subjective Follow-up For: Acute on chronic hypoxic hypercarbic respiratory failure COPD exacerbation Tele-Events Since Last Visit: nsr hr 70s-90s Subjective: Seen and examined patient this morning, states that she feels tired and her breathing is labored. She is feeling hungry and would like to eat. Denies pain , fever or chills. Review of Systems Constitutional: Reports: see HPI. Objective Last 24 Hrs of Vital Signs/I&O Vital Signs Date Time Temp Pulse Resp B/P B/P Pulse O2 O2 Flow FiO2 Mean Ox Delivery Rate 12/05 0600 80 26 90/62 / 0550 81 96 / 0548 77 98 12/05 0400 97.8 76 26 90/52 12/05 0400 97 BIPAP 12/05 0321 80 97 / 0200 85 26 93/60 12/05 0016 77 99 / 0014 77 100 06/ 0000 98.6 80 26 90/50 06 0000 98 BIPAP 40% 12/04 2330 88 92 / 2200 84 26 81/60 /09 2026 81 97 06/09 2000 98.2 90 26 102/69 06/09 2000 93 BIPAP 30% / 1800 98.6 88 28 90/60 /09 1631 88 94 06/09 1628 94 BIPAP 30% / 1600 98.9 92 28 90/60 /09 1600 94 BIPAP 30% / 1600 98.9 92 28 90/60 92 BIPAP 30% / 1444 89 92 / 1400 99.2 90 26 89/66 / 1200 99.6 96 26 90/56 06/09 1200 96 BIPAP 30% / 1118 101 93 / 0913 98.4 94 26 90/50 /09 0910 93 94 Intake & Output 12/05 1600 /10 0800 06/ 0000 Intake Total 708 608 Output Total 200 950 Balance 508 -342 Intake, IV 588 608 Intake, Oral 120 0 Number 0 0 Bowel Movements Output, Urine 200 950 Physical Exam General Appearance: Alert, Oriented X3, Moderate Distress Cardiovascular: Regular Rate, Normal S1, Normal S2 Lungs: b/l decreased BS in all areas Abdomen: Normal Bowel Sounds, Soft, No Tenderness Extremities: No Edema Current Medications: Current Medications Sig/Nishant Start time Last Medication Dose Route Stop Time Status Admin Acetaminophen 650 MG Q6P PRN 12/02 1015 AC PO Al Hydroxide/Mg 30 ML Q4-6 PRN PRN 12/03 1015 AC Hydroxide PO Albuterol Sulfate 3 ML EVERY 4 HRS/AWAKE 12/02 1600 AC 12/05 INH 0757 Azithromycin 500 MG DAILY 12/02 1011 AC 12/04 Sodium Chloride 250 ML IV 0804 Benzocaine/Menthol 1 TORIE Q2P PRN 12/03 0830 AC PO Dextrose/Sodium 1,000 ML Q13H 12/04 1115 AC 12/05 Chloride IV 0124 Enoxaparin Sodium 40 MG DAILY 12/03 0900 AC SC Guaifenesin 600 MG Q12 12/02 1011 AC 12/05 PO 0000 Insulin Aspart 0 TIDAC 12/03 1200 AC 12/04 SC 1729 Ipratropium [place] 2.5 ML EVERY 4 HRS/AWAKE 12/02 1600 AC 12/05 INH 0757 Magnesium Sulfate 1 GM ONCE ONE 12/05 0745 AC Dextrose/Water 100 ML IV 12/05 1144 Melatonin 5 MG AT BEDTIME 12/03 0245 AC 12/03 PO 2220 Methylprednisolone 40 MG Q6 12/04 0600 AC 12/05 IV 0647 Nystatin 5 ML 4 TIMES/DAY 12/03 1002 AC 12/04 PO 0804 Omeprazole 40 MG DAILY AC 12/02 1012 DC 12/04 PO 0628 Ondansetron HCl 4 MG ONCE ONE 12/04 0830 DC 12/04 IV 12/04 0931 0926 Pantoprazole Sodium 40 MG DAILY 12/04 0845 AC 12/04 IV 0954 Sodium Chloride 500 ML BOLUS ONE 12/04 1115 DC 12/04 IV 12/04 1214 1100 Sodium Chloride 500 ML BOLUS ONE 12/04 1030 DC 12/04 IV 12/04 1129 1024 Trimethobenzamide HCl 200 MG ONCE ONE 12/04 0845 DC 12/04 IM 12/04 0946 0954 Last 24 Hrs of Lab/Conner Results Last 24 Hrs of Labs/Mics: Laboratory Tests 12/05/17 0835: pH 7.30 *L, pCO2 78 *H, pO2 114 H, HCO3 37 H, ABG O2 Sat (Measured) 97.0, P-50 (Temp Corrected) N, Carboxyhemoglobin 1.3 L, O2 Concentration % 35%, Temperature 97.8, Respiration Rate 26, O2 Delivery Method BIPAP, Vent Mode ST, Expiratory Pressure 4, Inspiratory Pressure 16, Phlebotomy Draw Site RIGHT RADIAL 12/05/17 0505: Anion Gap 5, Estimated GFR > 60, Glucose 165 H, Calcium 8.2 L, Phosphorus 2.9, Magnesium 1.9, Total Bilirubin 0.4, AST 34, ALT 38, Albumin 3.0 L, CBC w Diff NO MAN DIFF REQ, RBC 4.59, MCV 97.9, MCH 31.4 H, MCHC 32.1 L, RDW 13.2, MPV 8.1, Gran % 83.7 H, Lymphocytes % 9.6 L, Monocytes % 6.7, Eosinophils % 0, Basophils % 0, Absolute Granulocytes 2.8, Absolute Lymphocytes 0.3 L, Absolute Monocytes 0.2, Absolute Eosinophils 0, Absolute Basophils 0 12/04/17 1415: pH 7.25 *L, pCO2 82 *H, pO2 66 L, HCO3 35 H, ABG O2 Sat (Measured) 91.0 L, P- 50 (Temp Corrected) N, Carboxyhemoglobin 1.5, O2 Concentration % 30%, Respiration Rate 26, O2 Delivery Method BIPAP, Vent Mode ST, Expiratory Pressure 4, Inspiratory Pressure 16, Phlebotomy Draw Site RIGHT BRACHIAL 12/04/17 1055: pH 7.20 *L, pCO2 96 *H, pO2 83, HCO3 37 H, ABG O2 Sat (Measured) 94.0 L, P-50 (Temp Corrected) N, Carboxyhemoglobin 1.2 L, O2 Concentration % 35%, Respiration Rate 24, O2 Delivery Method BIPAP, Vent Mode ST, Expiratory Pressure 4, Inspiratory Pressure 16, Phlebotomy Draw Site RIGHT BRACHIAL Microbiology 12/04 1720 UPPER RESP: Surveillance Culture - RECD 12/05 919 LOWER RESP: Respiratory Culture - COLB 12/05 919 LOWER RESP: Gram Stain - COLB Assessment/Plan Assessment: 62 year old woman current smoker with history of severe COPD currently on day 2 of hospitalization current admission for Acute hypercarbic respiratory failure likely due to COPD exacerbation. assessement/plan: Acute on Chronic hypercarbic respiratory failure On Bipap overnight ABG this morning improving 7.30/78/114/37 initially was placed on 3L NC however she was unable to maintain her saturations and desaturated to the 70s and was placed back on BiPAP. Continue solumedrol IV 40mg accuchecks 149,163,151 Hypotension BP 80-90s systolic over 50-60s diastolic MAP of 70 currently on D5W Ns at 75cc Diet:will advance to full liquid diet today DVT ppx: SQ Lovenox, continues to refuse despite explaining her the benefits/ risks Code status:DNR/DNI IV access: peripheral Problem List: 1. COPD exacerbation 2. Acute and chronic respiratory failure with hypoxia Pain Ratin Pain Location: na Pain Goal: Pain 4 or less Pain Plan: current regimen Tomorrow's Labs & Rationales: Barron David MD 12/05/17 0908: Attending MD Review Statement Attending Statement Attending MD Statement: examined this patient, discuss w/resident/PA/FLATBED OWNER OPERATOR, agreed w/resident/PA/FLATBED OWNER OPERATOR, reviewed EMR data (avail) Attending Assessment/Plan: 62F PMH COPD, active smoker admitted for COPD exacerbation. This morning became more confused with rising pCO2, placed on BiPAP with initial worsening but now improving. Still wheezing on exam. Saturation holding steady. Labs reviewed. Plan - Continue in ICU - BiPAP PRN - Continue Solumedrol at current dose - Nebulizer treatments - Follow pulmonary recommendations - Clarify goals of care with family - Continue Azithromycin - Continue home medications - DVT PPx
--- NOTE | 2017-12-05 10:33 | PN- Pulmonary ---
Subjective HPI/Critical Care Issues: Acute on chronic hypercapnic respiratory failure is improved. CODE STATUS changed to DNR/DNI noted. She appears more awake and alert Objective Current Medications: Current Medications Sig/Nishant Start time Last Medication Dose Route Stop Time Status Admin Acetaminophen 650 MG Q6P PRN 12/02 1015 AC PO Al Hydroxide/Mg 30 ML Q4-6 PRN PRN 12/03 1015 AC Hydroxide PO Albuterol Sulfate 3 ML EVERY 4 HRS/AWAKE 12/02 1600 AC 12/05 INH 0757 Azithromycin 500 MG DAILY 12/02 1011 AC 12/04 Sodium Chloride 250 ML IV 0804 Benzocaine/Menthol 1 TORIE Q2P PRN 12/03 0830 AC PO Dextrose/Sodium 1,000 ML Q13H 12/04 1115 AC 12/05 Chloride IV 0124 Enoxaparin Sodium 40 MG DAILY 12/03 0900 AC SC Guaifenesin 600 MG Q12 12/02 1011 AC 12/05 PO 0000 Insulin Aspart 0 TIDAC 12/03 1200 AC 12/04 SC 1729 Ipratropium [place] 2.5 ML EVERY 4 HRS/AWAKE 12/02 1600 AC 12/05 INH 0757 Magnesium Sulfate 1 GM ONCE ONE 12/05 0745 AC Dextrose/Water 100 ML IV 12/05 1144 Melatonin 5 MG AT BEDTIME 12/03 0245 AC 12/03 PO 2220 Methylprednisolone 40 MG Q6 12/04 0600 AC 12/05 IV 0647 Nystatin 5 ML 4 TIMES/DAY 12/03 1002 AC 12/04 PO 0804 Pantoprazole Sodium 40 MG DAILY 12/04 0945 AC 12/04 IV 0954 Sodium Chloride 500 ML BOLUS ONE 12/04 1115 DC 12/04 IV 12/04 1214 1100 Sodium Chloride 500 ML BOLUS ONE 12/04 1030 DC / IV 12/04 1129 1024 Vital Signs & I&O Last 24 Hrs of Vitals and I&O: Vital Signs Date Time Temp Pulse Resp B/P B/P Pulse O2 O2 Flow FiO2 Mean Ox Delivery Rate 12/05 912 94 Nasal 2.0L Cannula 12/05 909 93 12/05 08 98.2 80 26 90/60 12/05 0800 95 BIPAP 35% 12/05 08 98.2 80 26 90/60 96 BIPAP 35% 12/05 599 80 26 90/62 12/05 0550 81 96 12/05 0548 77 98 06/10 0400 97.8 76 26 90/52 / 0400 97 BIPAP 12/05 0321 80 97 /10 0200 85 26 93/60 / 0016 77 99 06/10 0014 77 100 06/10 0000 98.6 80 26 90/50 06/10 0000 98 BIPAP 40% 12/04 2330 88 92 / 2200 84 26 81/60 / 2026 81 97 /1999 98.2 90 26 102/69 12/04 2000 93 BIPAP 30% 12/04 1800 98.6 88 28 90/60 12/04 1631 88 94 /09 1628 94 BIPAP 30% 12/04 1600 98.9 92 28 90/60 / 1600 94 BIPAP 30% 12/04 1600 98.9 92 28 90/60 92 BIPAP 30% 12/04 1444 89 92 / 1400 99.2 90 26 89/66 12/04 1200 99.6 96 26 90/56 / 1200 96 BIPAP 30% 12/04 1118 101 93 Intake & Output 12/05 1600 /10 0800 12/05 0000 Intake Total 708 608 Output Total 200 950 Balance 508 -342 Intake, IV 588 608 Intake, Oral 120 0 Number 0 0 Bowel Movements Output, Urine 200 950 Since saturation 2 L 94% exam for chest shows markedly diminished breath sounds are no wheezes cardiac exam shows a regular S1 and S2 without murmurs diminished soft nontender Impression/Plan Impression/Plan Impression/Plan: 62-year-old with end-stage COPD improving acute on chronic hypercapnic respiratory failure now DNR/DNI. Recommendations: Taper FiO2 to saturation approximately 9o percent continue IV fluids can continue when necessary BiPAP continue IV steroids Mary Alice for meaningful recovery appears small and patient will likely need Memo for pulmonary rehabilitation
--- NOTE | 2017-12-05 22:46 | RADIOLOGY REPORT ---
EXAMINATION: XR PORTABLE CHEST CLINICAL INFORMATION: Acute exacerbation of shortness of breath on BiPAP, COPD. COMPARISON: Chest x-ray 12/04/2017. TECHNIQUE: Portable frontal view of the chest was obtained. FINDINGS: Portions of the left lower lobe were not included on this radiograph. Lungs are hyperexpanded. No focal infiltrate. No pleural effusion. Cardiomediastinal silhouette and pulmonary vasculature are normal. No acute osseous finding. IMPRESSION: No acute cardiopulmonary disease. Stable hyperaeration of the lungs suggesting COPD.
[2017-12-06] VITALS (9 sets, daily range): BP systolic 92–120; BP diastolic 56–70
[2017-12-06 04:31] LABS: ABSOLUTE BASOPHIL COUNT 0 /CUMM (0.0-0.2); ABSOLUTE EOSINOPHIL COUNT 0 /CUMM (0.0-0.7); ABSOLUTE GRANULOCYTE CT 2.1 /CUMM (1.4-6.5); ABSOLUTE LYMPH COUNT 0.4 /CUMM (1.2-3.4); ABSOLUTE MONOCYTE COUNT 0.2 /CUMM (0.10-0.60); BASOPHIL % 0 % (0.0-2.0); EOSINOPHIL % 0 % (0-5); GRANULOCYTE % 76.7 % (42.2-75.2); HEMATOCRIT 41.5 % (37-47); MEAN CORPUSCULAR HGB 31.7 PG (27.0-31.0); MEAN CORPUSCULAR VOLUME 96.2 FL (81.0-99.0); MEAN PLATELET VOLUME 7.8 FL (7.4-10.4); PLATELET COUNT 98 /CUMM (130-400); RBC DISTRIBUTION WIDTH 13.3 % (11.5-14.5); RED BLOOD CELL CT 4.31 /CUMM (4.20-5.40); WHITE BLOOD CELL COUNT 2.7 /CUMM (4.8-10.8)
--- NOTE | 2017-12-06 07:32 | PN- Housestaff ---
Subjective Follow-up For: Acute on chronic hypoxic hypercarbic respiratory failure COPD exacerbation Subjective: no overnight event. Patient was on BiPAP awake and alert when I examine her, without apparent distress. Followed my command. Denied pain or fever currently. Review of Systems Constitutional: Reports: see HPI. Objective Last 24 Hrs of Vital Signs/I&O Vital Signs Date Time Temp Pulse Resp B/P B/P Pulse O2 O2 Flow FiO2 Mean Ox Delivery Rate 12/06 0600 80 26 107/61 12/06 0522 79 97 12/06 0400 97.9 74 27 120/60 12/06 0400 99 BIPAP 35% 12/06 0303 77 95 12/06 0200 76 29 97/60 12/06 0010 79 95 12/06 0000 98.2 78 26 94/60 12/06 0000 96 BIPAP 35% 12/06 0000 98.2 78 26 94/60 96 BIPAP 35% 12/05 2228 91 92 12/05 2200 97.0 84 20 85/53 12/05 2044 93 BIPAP 30% 12/05 2044 76 93 12/05 2000 97.9 80 23 101/66 12/05 2000 96 BIPAP 30% 12/05 1800 98.6 85 26 91/60 10 1642 77 96 12/05 1600 98.6 76 19 92/62 12/05 1600 96 BIPAP 30% 12/05 1600 98.6 76 19 92/62 97 BIPAP 30% 12/05 1400 98.5 82 36 91/57 12/05 1326 98 12/05 1200 98.4 82 26 91/67 12/05 1200 96 BIPAP 35% 12/05 1055 109 93 12/05 1000 98.4 86 26 92/61 12/05 0913 94 Nasal 2.0L Cannula 12/05 0910 93 12/05 0800 98.2 80 26 90/60 10 0800 95 BIPAP 35% 12/05 0800 98.2 80 26 /60 96 BIPAP 35% Intake & Output 12/06 0800 12/06 0000 12/05 1600 Intake Total 579 600 862 Output Total 325 300 Balance 254 600 562 Intake, IV 579 600 762 Intake, Oral 100 Number 0 Bowel Movements Output, Urine 325 300 Patient 48.364 kg Weight Weight Bed scale Measurement Method Physical Exam General Appearance: Alert, Cooperative, No Acute Distress Cardiovascular: Regular Rate Lungs: bilateral wheezing Abdomen: Soft, No Tenderness Extremities: No Edema Current Medications: Current Medications Sig/Nishant Start time Last Medication Dose Route Stop Time Status Admin Acetaminophen 650 MG Q6P PRN 12/02 1015 AC PO Al Hydroxide/Mg 30 ML .STK-MED ONE 12/05 1139 DC Hydroxide PO 12/05 1140 Al Hydroxide/Mg 30 ML Q4-6 PRN PRN 12/03 1015 AC 12/05 Hydroxide PO 1140 Albuterol Sulfate 3 ML EVERY 4 HRS/AWAKE 12/02 1600 AC 12/05 INH 2042 Azithromycin 500 MG DAILY 12/02 1011 AC 12/05 Sodium Chloride 250 ML IV 1056 Benzocaine/Menthol 1 TORIE Q2P PRN 12/03 0830 AC PO Dextrose/Sodium 1,000 ML Q13H 12/04 1115 AC 12/06 Chloride IV 0229 Enoxaparin Sodium 40 MG DAILY 12/03 0900 AC SC Guaifenesin 600 MG Q12 12/02 1011 AC 12/05 PO 0000 Insulin Aspart 0 TIDAC 12/03 1200 AC 12/05 SC 1305 Ipratropium [place] 2.5 ML EVERY 4 HRS/AWAKE 12/02 1600 AC 12/05 INH 2043 Lorazepam 0.5 MG ONCE ONE 12/05 2130 DC 12/05 IV 12/05 2131 2123 Magnesium Sulfate 1 GM ONCE ONE 12/05 0745 DC 12/05 Dextrose/Water 100 ML IV 12/05 1144 1054 Melatonin 5 MG AT BEDTIME 12/03 0245 AC 12/03 PO 2220 Methylprednisolone 40 MG Q6 12/04 0600 AC 12/06 IV 0533 Nystatin 5 ML 4 TIMES/DAY 12/03 1002 AC 12/05 PO 1305 Pantoprazole Sodium 40 MG DAILY 12/04 0945 AC 12/05 IV 1055 Last 24 Hrs of Lab/Conner Results Last 24 Hrs of Labs/Mics: Laboratory Tests 12/06/17 0410: Anion Gap 4 L, Estimated GFR > 60, BUN/Creatinine Ratio 28.0 H, Magnesium 2.3, CBC w Diff NO MAN DIFF REQ, RBC 4.31, MCV 96.2, MCH 31.7 H, MCHC 33.0, RDW 13.3 , MPV 7.8, Gran % 76.7 H, Lymphocytes % 15.5 L, Monocytes % 7.8, Eosinophils % 0, Basophils % 0, Absolute Granulocytes 2.1, Absolute Lymphocytes 0.4 L, Absolute Monocytes 0.2, Absolute Eosinophils 0, Absolute Basophils 0 12/05/17 0835: pH 7.30 *L, pCO2 78 *H, pO2 114 H, HCO3 37 H, ABG O2 Sat (Measured) 97.0, P-50 (Temp Corrected) N, Carboxyhemoglobin 1.3 L, O2 Concentration % 35%, Temperature 97.8, Respiration Rate 26, O2 Delivery Method BIPAP, Vent Mode ST, Expiratory Pressure 4, Inspiratory Pressure 16, Phlebotomy Draw Site RIGHT RADIAL Assessment/Plan Assessment: 62 year old woman current smoker with history of severe COPD currently on day 2 of hospitalization current admission for Acute hypercarbic respiratory failure likely due to COPD exacerbation. assessement/plan: Acute on Chronic hypercarbic respiratory failure On Bipap overnight ABG 12/05 improving 7.30/78/114/37 - Continue BiPAP - Continue solumedrol IV 40mg q6 + Azithromycin day 5 currently - accuchecks 149,163,151 Hypotension BP 80-90s systolic over 50-60s diastolic MAP of 70 currently on D5W Ns at 75cc Diet: NPO for BiPAP now. DVT ppx: SQ Lovenox Code status:DNR/DNI IV access: peripheral Problem List: 1. Acute respiratory failure with hypoxia Pain Ratin Pain Location: NA Pain Goal: Remain pain free Pain Plan: see AP Tomorrow's Labs & Rationales: ICU/CBC
--- NOTE | 2017-12-06 11:20 | PN- Resident CRCU ---
KcJosefa 12/06/17 1117: Subjective HPI/CRCU Issues: no overnight event. Patient was on BiPAP awake and alert when I examine her, without apparent distress. Followed my command. Denied pain or fever currently. Off Bipap later this morning, with High-Flow, satting well. Objective Vital Signs & I&O Last 8 Hrs of Vitals and I&O: Vital Signs Date Time Temp Pulse Resp B/P B/P Pulse O2 O2 Flow FiO2 Mean Ox Delivery Rate 12/07 839 93 Nasal 45% Cannula 12/07 0740 93 12/06 08 97.8 79 36 100/70 12/06 0800 97.8 79 36 100/70 97 BIPAP 35% 12/06 0800 97 BIPAP 35% 12/06 0600 80 26 107/61 12/06 0522 79 97 12/06 0400 97.9 74 27 120/60 12/06 0400 99 BIPAP 35% 12/06 0303 77 95 12/06 0200 76 29 97/60 12/06 0010 79 95 06/ 0000 98.2 78 26 94/60 / 0000 96 BIPAP 35% / 0000 98.2 78 26 94/60 96 BIPAP 35% /10 2228 91 92 06/10 2200 97.0 84 20 85/53 06/ 2044 93 BIPAP 30% /10 2044 76 93 /10 2000 97.9 80 23 101/66 /1999 96 BIPAP 30% / 1800 98.6 85 26 91/60 06/10 1642 77 96 /10 1600 98.6 76 19 92/62 /10 1600 96 BIPAP 30% 10 1600 98.6 76 19 92/62 97 BIPAP 30% /10 1400 98.5 82 36 91/57 06/10 1326 98 06/10 1200 98.4 82 26 91/67 /10 1200 96 BIPAP 35% Intake & Output 12/06 1600 11 0800 12/06 0000 Intake Total 579 600 Output Total 325 Balance 254 600 Intake, IV 579 600 Number 0 Bowel Movements Output, Urine 325 Patient 48.364 kg Weight Weight Bed scale Measurement Method Exam General Appearance: alert, awake, mild distress Head: atraumatic, normal appearance Respiratory: wheezing, bilateral wheezing Cardiovascular: regular rate/rhythm Gastrointestinal: normal bowel sounds, soft, non-tender Extremities: no edema Current Medications: Current Medications Sig/Nishant Start time Last Medication Dose Route Stop Time Status Admin Acetaminophen 650 MG Q6P PRN 12/02 1015 AC PO Al Hydroxide/Mg 30 ML .STK-MED ONE 12/05 1139 DC Hydroxide PO 12/05 1140 Al Hydroxide/Mg 30 ML Q4-6 PRN PRN 12/03 1015 AC 12/06 Hydroxide PO 1028 Albuterol Sulfate 3 ML EVERY 4 HRS/AWAKE 12/02 1600 AC 12/06 INH 0810 Azithromycin 500 MG DAILY 12/02 1011 DC 12/06 Sodium Chloride 250 ML IV 0920 Benzocaine/Menthol 1 TORIE Q2P PRN 12/03 0830 AC PO Dextrose/Sodium 1,000 ML Q13H 12/04 1115 DC 12/06 Chloride IV 0229 Enoxaparin Sodium 40 MG DAILY 12/03 0900 AC SC Guaifenesin 600 MG Q12 12/02 1011 AC 12/06 PO 0920 Insulin Aspart 0 TIDAC 12/03 1200 AC 12/05 SC 1305 Ipratropium [place] 2.5 ML EVERY 4 HRS/AWAKE 12/02 1600 AC 12/06 INH 0810 Lorazepam 0.5 MG ONCE ONE 12/05 2130 DC 12/05 IV 12/05 2131 2123 Magnesium Sulfate 1 GM ONCE ONE 12/05 0745 DC 12/05 Dextrose/Water 100 ML IV 12/05 1144 1054 Melatonin 5 MG AT BEDTIME 12/03 0245 AC 12/03 PO 2220 Methylprednisolone 40 MG Q8 12/06 1400 AC IV Methylprednisolone 40 MG Q6 12/04 0600 DC 12/06 IV 0533 Nystatin 5 ML 4 TIMES/DAY 12/03 1002 AC 12/05 PO 1305 Ondansetron HCl 4 MG ONCE ONE 12/06 1045 DC 12/06 IV 12/06 1046 1037 Pantoprazole Sodium 40 MG DAILY 12/04 0945 AC 12/06 IV 0920 Impression/Plan Impression/Problem List Impression: 62 year old woman current smoker with history of severe COPD currently on day 2 of hospitalization current admission for Acute hypercarbic respiratory failure likely due to COPD exacerbation. assessement/plan: Acute on Chronic hypercarbic respiratory failure On Bipap overnight ABG 12/05 improving 7.30/78/114/37 - Continue BiPAP at night, may stay on highflow during the day providing with well O2 sat. - Continue solumedrol IV tapered to 40mg q8 + Azithromycin day 5 currently will complete 5-day full course - ABG repeat only if worsening Hypotension BP 80-90s systolic over 50-60s diastolic MAP of 70 currently on D5W Ns at 75cc - BP stable overnight, will DC fluid and encourage oral intake while off BiPAP Diet: Heart healthy diet DVT ppx: SQ Lovenox Code status:DNR/DNI IV access: peripheral Problem List: 1. Acute respiratory failure with hypoxia 2. COPD exacerbation Pain Ratin Tomorrow's Labs & Rationales: ICU/CBC Plan DVT/Prophylaxis: mechanical, pharmacological Rex Grant MD 12/06/17 1249: Attending MD Review Statement Attending Sign Off Attending Cosign Statement: I have: examined this patient, reviewed avalbl EMR data, personally reviewd images, discussd w/resident/PA/CONTAINER PACKER OPERATOR, discussed mgmt plan w/leilani, discussed mgmt plan w/CM, discussed mgmt plan w/pt, agreed w/resident/PA/CONTAINER PACKER OPERATOR, amended to note. Other Findings: IRex M.D. have examined this patient, reviewed available EMR data, personally reviewed images, discussed with resident/PA/CONTAINER PACKER OPERATOR, discussed management plan with housestaff and nursing staff, discussed managment plan all of healthcare providers, discussed management plan with patient and/or family, agreed with resident/PA/CONTAINER PACKER OPERATOR. The past history and parts of the chart have been autopopulated. Impression 62 year old woman * acute hypoxemic and hypercarbic respiratory failure * exacerbation of COPD * tobacco dependence Plan -nocturnal and prn bipap -continue high flow oxygen and taper to a goal spo2 of >88% -reduce solumedrol to 40mg iv q8h -trc/nebs -s/p 5 day course of zithromax -will evaluate for need for acute inpatient/STR pulmonary rehab such as [facility] DVT prophylaxis at all times DNR/DNI discussed with son, patient and housestaff at bedside TTS 35 min
[2017-12-07] VITALS (12 sets, daily range): BP systolic 92–110; BP diastolic 44–68
[2017-12-07 04:20] LABS: ABSOLUTE BASOPHIL COUNT 0 /CUMM (0.0-0.2); ABSOLUTE EOSINOPHIL COUNT 0 /CUMM (0.0-0.7); ABSOLUTE GRANULOCYTE CT 2.6 /CUMM (1.4-6.5); ABSOLUTE LYMPH COUNT 0.4 /CUMM (1.2-3.4); ABSOLUTE MONOCYTE COUNT 0.1 /CUMM (0.10-0.60); BASOPHIL % 0.2 % (0.0-2.0); EOSINOPHIL % 0 % (0-5); GRANULOCYTE % 83.5 % (42.2-75.2); MEAN CORPUSCULAR HGB 31.6 PG (27.0-31.0); MEAN CORPUSCULAR VOLUME 95.8 FL (81.0-99.0); MEAN PLATELET VOLUME 7.6 FL (7.4-10.4); PLATELET COUNT 104 /CUMM (130-400); RED BLOOD CELL CT 4.49 /CUMM (4.20-5.40); WHITE BLOOD CELL COUNT 3.1 /CUMM (4.8-10.8)
--- NOTE | 2017-12-07 07:22 | PN- Resident CRCU ---
DeJosefa 12/07/17 0722: Subjective HPI/CRCU Issues: Patient was seen and examined at bedside. No overnight event, resting comfortably on BiPAP 35% overnight. No specific complaint at this point. Objective Vital Signs & I&O Last 8 Hrs of Vitals and I&O: Vital Signs Date Time Temp Pulse Resp B/P B/P Pulse O2 O2 Flow FiO2 Mean Ox Delivery Rate 12/07 0743 62 96 12/07 0600 59 28 104/44 12/07 0547 62 97 12/07 0400 97.0 66 30 98/60 12/07 0400 95 BIPAP 35% 12/07 0231 72 94 12/07 0200 71 34 92/50 12/07 0031 78 94 06 0000 96.8 80 32 110/60 06 0000 94 BIPAP 35% 12/07 0000 96.8 80 32 110/60 94 BIPAP 35% 12/06 2200 99.1 78 30 92/59 12/06 2000 92 Nasal 35% Cannula 12/07 1999 99.1 80 30 102/56 12/07 1999 92 Nasal 35% Cannula 12/06 1615 93 Nasal 35% Cannula / 1600 98.1 90 41 102/68 06/11 1600 98.1 90 41 102/68 93 Nasal 35% Cannula / 1600 93 Nasal 35% Cannula 12/06 1327 92 Nasal 35% Cannula / 1200 92 Nasal 45% Cannula /11 1200 98.7 86 30 98/60 92 Nasal 45% Cannula 12/06 0840 93 Nasal 45% Cannula / 0840 93 Intake & Output 12/07 1600 /12 0800 12/07 0000 Intake Total 200 180 Output Total 300 Balance 200 -120 Intake, Oral 200 180 Output, Urine 300 Patient 46.068 kg Weight Weight Bed scale Measurement Method Exam General Appearance: no apparent distress, alert, awake Head: atraumatic, normal appearance Respiratory: chest non-tender, rhonchi, wheezing, bilateral wheezing on BiPAP however less profound than previous day Cardiovascular: regular rate/rhythm Gastrointestinal: normal bowel sounds, soft, non-tender Extremities: no edema Current Medications: Current Medications Sig/Nishant Start time Last Medication Dose Route Stop Time Status Admin Acetaminophen 650 MG Q6P PRN 12/02 1015 AC PO Al Hydroxide/Mg 30 ML .STK-MED ONE 12/06 1027 DC Hydroxide PO 12/06 1028 Al Hydroxide/Mg 30 ML Q4-6 PRN PRN 12/03 1015 AC 12/06 Hydroxide PO 1028 Albuterol Sulfate 3 ML EVERY 4 HRS/AWAKE 12/02 1600 AC 12/07 INH 0750 Azithromycin 500 MG DAILY 12/02 1011 DC 12/06 Sodium Chloride 250 ML IV 0920 Benzocaine/Menthol 1 TORIE Q2P PRN 12/03 0830 AC PO Dextrose/Sodium 1,000 ML Q13H 12/04 1115 DC 12/06 Chloride IV 0229 Enoxaparin Sodium 40 MG DAILY 12/03 0900 AC 12/07 SC 0803 Guaifenesin 600 MG Q12 12/07 0900 AC 12/07 PO 0805 Guaifenesin 600 MG Q12 12/02 1011 DC 12/06 PO 2044 Insulin Aspart 0 TIDAC 12/03 1200 AC 12/07 SC 0804 Ipratropium [place] 2.5 ML EVERY 4 HRS/AWAKE 12/02 1600 AC 12/07 INH 0750 Lorazepam 0.5 MG ONCE ONE 12/06 2100 DC 12/06 IV 12/06 2101 2057 Melatonin 5 MG AT BEDTIME 12/03 0245 AC 12/06 PO 2044 Methylprednisolone 40 MG Q8 12/06 1400 AC 12/07 IV 0555 Methylprednisolone 40 MG Q6 12/04 0600 DC 12/06 IV 0533 Nicotine 14 MG DAILY 12/07 0900 AC TOP Nystatin 5 ML 4 TIMES/DAY 12/03 1002 DC 12/05 PO 1305 Ondansetron HCl 4 MG ONCE ONE 12/06 1045 DC 12/06 IV 12/06 1046 1037 Pantoprazole Sodium 40 MG DAILY 12/04 0945 AC 12/07 IV 0804 Sodium Chloride 2 SPRAY Q4P PRN 12/07 0800 AC STARR Impression/Plan Impression/Problem List Impression: 62 year old woman current smoker with history of severe COPD currently on day 2 of hospitalization current admission for Acute hypercarbic respiratory failure likely due to COPD exacerbation. assessement/plan: Acute on Chronic hypercarbic respiratory failure On Bipap overnight ABG 12/05 improving 7.30/78/114/37 - Continue BiPAP at night, may stay on highflow during the day providing with well O2 sat. - Continue solumedrol IV tapered to 40mg q12 + Azithromycin completed 5-day full course on 12/06 - ABG repeat only if worsening Hypotension BP 90-100/60-70s MAP of 70 - Off fluid as she resumed eating off BiPAP in daytime Diet: Heart healthy diet DVT ppx: SQ Lovenox + ALPS Code status:DNR/DNI IV access: peripheral Problem List: 1. Acute respiratory failure with hypoxia 2. COPD exacerbation Pain Ratin Tomorrow's Labs & Rationales: ICU/CBC Plan DVT/Prophylaxis: mechanical, pharmacological Rex Grant MD 12/07/17 1050: Attending MD Review Statement Attending Sign Off Attending Cosign Statement: I have: examined this patient, reviewed avalbl EMR data, personally reviewd images, discussd w/resident/PA/STORE WORKER, discussed mgmt plan w/leilani, discussed mgmt plan w/CM, discussed mgmt plan w/pt, agreed w/resident/PA/STORE WORKER, amended to note. Other Findings: IRex M.D. have examined this patient, reviewed available EMR data, personally reviewed images, discussed with resident/PA/STORE WORKER, discussed management plan with housestaff and nursing staff, discussed managment plan all of healthcare providers, discussed management plan with patient and/or family, agreed with resident/PA/STORE WORKER. The past history and parts of the chart have been autopopulated. Impression 62 year old woman * acute hypoxemic and hypercarbic respiratory failure * exacerbation of COPD * tobacco dependence Plan -check ECHO to evaluate pulmonary pressures as a cause of hypoxemia -nocturnal and prn bipap -fio2 goal spo2 of >88% -keep solumedrol to 40mg iv q8h -trc/nebs -s/p 5 day course of zithromax -will evaluate for need for acute inpatient/STR pulmonary rehab such as [facility] DVT prophylaxis at all times DNR/DNI discussed with son, patient and housestaff at bedside prognosis guarded and likley poor prognosis for recovery TTS 35 min
--- NOTE | 2017-12-07 21:27 | ECHOCARDIOGRAM REPORT ---
KRISTEN HERNANDEZ Age: 62 : 1955 Gender: F Exam Date: 12/07/2017 16:25 Exam Location: [facility] Ht (in): 62 Wt (lb): 101 BSA: 1.41 BP: 109 / 66 Ordering Physician: Josefa Kc MD Referring Physician: Josefa Kc MD Technologist: Daniela Nicolas RDCS Room Number: 111 Indications: PULMONARY HYPERTENSION Rhythm: Technical Quality: FINDINGS Left Ventricle Normal global left ventricular size, wall thickness, systolic function with no obvious regional wall motion abnormalities. Normal left ventricular ejection fraction estimated at 60-65%. Right Ventricle Appears in some views dilated and hypokinetic.In the subcostal view right ventricular function appears normal Right Atrium Normal right atrial size. Left Atrium Normal left atrial size. Mitral Valve Mitral valve normal in structure and function. Trace to mild mitral regurgitation. Aortic Valve Aortic valve not well visualized, grossly normal. Tricuspid Valve Tricuspid valve is normal in structure and function. Mild tricuspid regurgitation. Right ventricular systolic pressure estimated to be elevated at 40 mmHg. Pulmonic Valve Pulmonic valve not well visualized, grossly normal. Pericardium No pericardial effusion. Great Vessels Normal size aortic root. CONCLUSIONS Normal left ventricular systolic function. In some views, right ventricle may be dilated and hypokinetic. No significant Pulmonary hypertension by doppler. Terry Plummer M.D. (Electronically Signed) Final Date: 07 December 2017 21:27 MEASUREMENTS (Male / Female) Normal Values 2D ECHO LV Diastolic Diameter PLAX 2.8 cm 4.2 - 5.9 / 3.9 - 5.3 cm LV Systolic Diameter PLAX 1.7 cm 2.1 - 4.0 cm LV Fractional Shortening PLAX 39.3 % 25 - 46 % LV Ejection Fraction 2D Teich 71.6 % IVS Diastolic Thickness 0.5 cm LVPW Diastolic Thickness 0.8 cm LV Relative Wall Thickness 0.5 RV Internal Dim ED PLAX 3.2 cm 1.9 - 3.8 cm LVOT Diameter 1.9 cm Aortic Root Diameter 3.1 cm LA Systolic Diameter LX 2.4 cm 3.0 - 4.0 / 2.7 - 3.8 cm DOPPLER AV Peak Velocity 103.0 cm/s AV Peak Gradient 4.2 mmHg AV Mean Velocity 72.4 cm/s AV Mean Gradient 2.0 mmHg AV Velocity Time Integral 22.2 cm LVOT Peak Velocity 80.5 cm/s LVOT Peak Gradient 2.6 mmHg LVOT Mean Velocity 54.1 cm/s LVOT Mean Gradient 1.0 mmHg LVOT Velocity Time Integral 16.6 cm LVOT Stroke Volume 47.1 cm AV Area Cont Eq vti 2.1 cm AV Area Cont Eq pk 2.2 cm MV Peak Velocity 93.4 cm/s MV Peak Gradient 3.5 mmHg MV Mean Velocity 63.7 cm/s MV Mean Gradient 2.0 mmHg Mitral E Point Velocity 99.2 cm/s Mitral A Point Velocity 54.3 cm/s Mitral E to A Ratio 1.8 MV PHT Velocity 101.0 cm/s MV Deceleration Trimble 534.0 cm/s MV Pressure Half Time 56.7 ms MV Area PHT 3.9 cm MV Deceleration Time 187.0 ms TR Peak Velocity 279.0 cm/s TR Peak Gradient 31.1 mmHg Right Atrial Pressure 5.0 mmHg Pulmonary Artery Systolic Pressu 36.1 mmHg Right Ventricular Systolic Press 36.1 mmHg PV Peak Velocity 114.0 cm/s PV Peak Gradient 5.2 mmHg PV Mean Velocity 78.1 cm/s PV Mean Gradient 3.0 mmHg PV Velocity Time Integral 19.8 cm LV E' Lateral Velocity 12.9 cm/s Mitral E to LV E' Lateral Ratio 7.7 LV E' Septal Velocity 9.8 cm/s Mitral E to LV E' Septal Ratio 10.1
[2017-12-08] VITALS (12 sets, daily range): BP systolic 100–114; BP diastolic 60–70
[2017-12-08 04:38] LABS: ABSOLUTE BASOPHIL COUNT 0 /CUMM (0.0-0.2); ABSOLUTE EOSINOPHIL COUNT 0 /CUMM (0.0-0.7); ABSOLUTE GRANULOCYTE CT 3.3 /CUMM (1.4-6.5); ABSOLUTE LYMPH COUNT 0.4 /CUMM (1.2-3.4); ABSOLUTE MONOCYTE COUNT 0.1 /CUMM (0.10-0.60); BASOPHIL % 0 % (0.0-2.0); EOSINOPHIL % 0.1 % (0-5); HEMATOCRIT 44.7 % (37-47); MEAN CORPUSCULAR HGB 31.5 PG (27.0-31.0); MEAN CORPUSCULAR HGB CONC 33.1 G/DL (33.0-37.0); MEAN PLATELET VOLUME 7.4 FL (7.4-10.4); PLATELET COUNT 108 /CUMM (130-400); WHITE BLOOD CELL COUNT 3.9 /CUMM (4.8-10.8)
[2017-12-08 05:35] LABS: GRANULOCYTE % 86.6 % (42.2-75.2)
--- NOTE | 2017-12-08 07:23 | PN- Resident CRCU ---
DeJosefa Rodo 12/08/17 0722: Subjective HPI/CRCU Issues: Patient was seen and examined at bedside. No overnight event, resting comfortably on BiPAP 30% overnight. No specific complaint at this point. Echo was done without complication. Objective Vital Signs & I&O Last 8 Hrs of Vitals and I&O: Intake & Output 12/08 0800 Intake Total 220 Output Total 400 Balance -180 Intake, Oral 220 Number 0 Bowel Movements Output, Urine 400 Exam General Appearance: no apparent distress, alert, awake, on BIPAP Head: atraumatic, normal appearance Respiratory: chest non-tender, decreased breath sounds, on BiPAP BL lungs sounds decreased but sounds less rhonchi/wheezing compared to previous day Cardiovascular: regular rate/rhythm Gastrointestinal: normal bowel sounds, soft, non-tender Extremities: normal inspection, no edema Current Medications: Current Medications Sig/Nishant Start time Last Medication Dose Route Stop Time Status Admin Acetaminophen 650 MG Q6P PRN 12/02 1015 AC PO Al Hydroxide/Mg 30 ML Q4-6 PRN PRN 12/03 1015 AC 12/06 Hydroxide PO 1028 Albuterol Sulfate 3 ML EVERY 4 HRS/AWAKE 12/02 1600 AC 12/07 INH 205 Benzocaine/Menthol 1 TORIE Q2P PRN 12/03 0830 AC PO Enoxaparin Sodium 40 MG DAILY 12/03 0900 AC SC Guaifenesin 600 MG Q12 12/07 0900 AC 12/07 PO 2201 Guaifenesin 600 MG Q12 12/02 1011 DC 12/06 PO 2044 Insulin Aspart 0 TIDAC 12/03 1200 AC 12/07 SC 0804 Ipratropium [place] 2.5 ML EVERY 4 HRS/AWAKE 12/02 1600 AC 12/07 INH 205 Lorazepam 0.5 MG ONCE ONE 12/07 1730 DC 12/07 IV 12/07 1731 1730 Melatonin 5 MG AT BEDTIME 12/03 0245 AC 12/07 PO 2201 Methylprednisolone 40 MG Q8 12/06 1400 AC 12/08 IV 0536 Nicotine 14 MG DAILY 12/07 0900 AC 12/07 TOP 1049 Nystatin 5 ML 4 TIMES/DAY 12/03 1002 DC 12/05 PO 1305 Pantoprazole Sodium 40 MG DAILY 12/04 0945 AC 12/07 IV 0804 Sodium Chloride 2 SPRAY Q4P PRN 12/07 0800 AC STARR Impression/Plan Impression/Problem List Impression: 62 year old woman current smoker with history of severe COPD currently on day 2 of hospitalization current admission for Acute hypercarbic respiratory failure likely due to COPD exacerbation. assessement/plan: Acute on Chronic hypercarbic respiratory failure On Bipap overnight ABG 12/05 improving 7.30/78/114/37 - Continue BiPAP at night, may stay on highflow during the day providing with well O2 sat. - Continue solumedrol IV tapered to 40mg q12 + Azithromycin completed 5-day full course on 12/06 - ABG repeat only if worsening - Echocardiography was done without significant signs of pulm hypertension, with RVSP of 40mmHg (moderate pulm HTN?) with some RV dilation/hypokinetic. - Discussed with son at bedside on 12/07 regarding current plan of care that patient's severe underlying COPD conditions, with active smoking history and no regular follow up with PCP, that she may require a longer time to recover compared to uncomplicated COPD exacerbation that was not taken care under ICU setting. Patient may also need pulm STR as a potential discharge disposition. Hypotension BP 100-110s/60-70s MAP of 70 - Off fluid as she resumed eating off BiPAP in daytime Diet: Heart healthy diet DVT ppx: SQ Lovenox + ALPS Code status:DNR/DNI IV access: peripheral Problem List: 1. Acute respiratory failure with hypoxia 2. COPD exacerbation Pain Ratin Tomorrow's Labs & Rationales: ICU/CBC Plan DVT/Prophylaxis: mechanical, pharmacological Rex Grant MD 12/08/17 0939: Attending MD Review Statement Attending Sign Off Attending Cosign Statement: I have: examined this patient, reviewed avalbl EMR data, personally reviewd images, discussd w/resident/PA/SALES RESEARCH ANALYST, discussed mgmt plan w/leilani, discussed mgmt plan w/CM, discussed mgmt plan w/pt, agreed w/resident/PA/SALES RESEARCH ANALYST, amended to note. Other Findings: IRex M.D. have examined this patient, reviewed available EMR data, personally reviewed images, discussed with resident/PA/SALES RESEARCH ANALYST, discussed management plan with housestaff and nursing staff, discussed managment plan all of healthcare providers, discussed management plan with patient and/or family, agreed with resident/PA/SALES RESEARCH ANALYST. The past history and parts of the chart have been autopopulated. Impression 62 year old woman * acute hypoxemic and hypercarbic respiratory failure * exacerbation of COPD * tobacco dependence * moderate pulmonary htn Plan -nocturnal and prn bipap -fio2 goal spo2 of >88% -keep solumedrol to 40mg iv q12h -trc/nebs -s/p 5 day course of zithromax -will evaluate for need for acute inpatient/STR pulmonary rehab such as [facility] DVT prophylaxis at all times DNR/DNI prognosis guarded and likley poor prognosis for recovery TTS 35 min will initiate discussion and involve palliative care consultants if patient agreeable
[2017-12-09] VITALS (10 sets, daily range): BP systolic 98–119; BP diastolic 50–70
[2017-12-09 05:13] LABS: ABSOLUTE BASOPHIL COUNT 0 /CUMM (0.0-0.2); ABSOLUTE EOSINOPHIL COUNT 0 /CUMM (0.0-0.7); ABSOLUTE GRANULOCYTE CT 4.1 /CUMM (1.4-6.5); ABSOLUTE LYMPH COUNT 0.4 /CUMM (1.2-3.4); ABSOLUTE MONOCYTE COUNT 0.2 /CUMM (0.10-0.60); BASOPHIL % 0 % (0.0-2.0); EOSINOPHIL % 0 % (0-5); GRANULOCYTE % 87.3 % (42.2-75.2); HEMATOCRIT 45.3 % (37-47); MEAN CORPUSCULAR HGB 31.5 PG (27.0-31.0); MEAN CORPUSCULAR VOLUME 95.4 FL (81.0-99.0); MEAN PLATELET VOLUME 7.9 FL (7.4-10.4); PLATELET COUNT 119 /CUMM (130-400); RBC DISTRIBUTION WIDTH 13.2 % (11.5-14.5); RED BLOOD CELL CT 4.75 /CUMM (4.20-5.40); WHITE BLOOD CELL COUNT 4.7 /CUMM (4.8-10.8)
--- NOTE | 2017-12-09 07:15 | PN- Resident CRCU ---
DeJosefa Rodo 12/09/17 0715: Subjective HPI/CRCU Issues: No overnight event. Patient was seen and examined at bedside, on BiPAP, alert and awake, appeared to have better appetite and would want to eat breakfast. Cooperative on physical exam. No specific complaint. Objective Vital Signs & I&O Last 8 Hrs of Vitals and I&O: Intake & Output 12/09 0800 Intake Total 100 Output Total 500 Balance -400 Intake, Oral 100 Output, Urine 500 Exam General Appearance: no apparent distress, alert, awake Respiratory: decreased breath sounds, rhonchi, wheezing, wheezing more auscultable from the front chest, however appeared improved from previous days. Cardiovascular: regular rate/rhythm Gastrointestinal: normal bowel sounds, soft Extremities: no edema Current Medications: Current Medications Sig/Nishant Start time Last Medication Dose Route Stop Time Status Admin Acetaminophen 650 MG Q6P PRN 12/02 1015 AC PO Al Hydroxide/Mg 30 ML Q4-6 PRN PRN 12/03 1015 AC 12/06 Hydroxide PO 1028 Albuterol Sulfate 3 ML EVERY 4 HRS/AWAKE 12/02 1600 AC 12/09 INH 0757 Benzocaine/Menthol 1 TORIE Q2P PRN 12/03 0830 AC PO Enoxaparin Sodium 40 MG DAILY 12/03 0900 AC 12/09 SC 0801 Guaifenesin 600 MG Q12 12/07 0900 AC 12/09 PO 0801 Insulin Aspart 0 TIDAC 12/03 1200 AC 12/07 SC 0804 Ipratropium [place] 2.5 ML EVERY 4 HRS/AWAKE 12/02 1600 AC 12/09 INH 0757 Melatonin 5 MG AT BEDTIME 12/03 0245 AC 12/08 PO 2113 Methylprednisolone 40 MG Q12 12/08 2100 AC 12/09 IV 0801 Methylprednisolone 40 MG Q8 12/06 1400 DC 12/08 IV 1306 Morphine Sulfate 1 MG ONCE ONE 12/08 1715 DC 12/08 IV 12/08 1716 2113 Nicotine 14 MG DAILY 12/07 0900 AC 12/09 TOP 0801 Pantoprazole Sodium 40 MG DAILY 12/04 0945 AC 12/09 IV 0801 Sodium Chloride 2 SPRAY Q4P PRN 12/07 0800 AC STARR Impression/Plan Impression/Problem List Impression: 62 year old woman current smoker with history of severe COPD currentky admitted for acute hypercarbic respiratory failure likely due to COPD exacerbation. assessement/plan: Acute on Chronic hypercarbic respiratory failure On Bipap overnight ABG 12/05 improving 7.30/78/114/37 - Continue BiPAP at night, may stay on highflow during the day providing with well O2 sat. - Continue solumedrol IV tapered to 40mg qd + Azithromycin completed 5-day full course on 12/06 - ABG repeat only if worsening - Echocardiography was done without significant signs of pulm hypertension, with RVSP of 40mmHg (moderate pulm HTN?) with some RV dilation/hypokinetic. - Discussed with son at bedside on 12/07 regarding current plan of care that patient's severe underlying COPD conditions, with active smoking history and no regular follow up with PCP, that she may require a longer time to recover compared to uncomplicated COPD exacerbation that was not taken care under ICU setting. Patient may also need pulm STR as a potential discharge disposition. - Pending family's decision on palliative care consult. Hypotension BP 100-110s/60-70s MAP of 70 - Off fluid as she resumed eating off BiPAP in daytime - I/O 761/850 in the last 24 hours Diet: Heart healthy diet DVT ppx: SQ Lovenox + ALPS Code status:DNR/DNI IV access: peripheral Problem List: 1. COPD exacerbation Pain Ratin Tomorrow's Labs & Rationales: ICU/CBC Plan DVT/Prophylaxis: mechanical, pharmacological Rex Grant MD 12/09/17 0927: Attending MD Review Statement Attending Sign Off Attending Cosign Statement: I have: examined this patient, reviewed avalbl EMR data, personally reviewd images, discussd w/resident/PA/TOP CLEANER, discussed mgmt plan w/leilani, discussed mgmt plan w/CM, discussed mgmt plan w/pt, agreed w/resident/PA/TOP CLEANER, amended to note. Other Findings: IRex M.D. have examined this patient, reviewed available EMR data, personally reviewed images, discussed with resident/PA/TOP CLEANER, discussed management plan with housestaff and nursing staff, discussed managment plan all of healthcare providers, discussed management plan with patient and/or family, agreed with resident/PA/TOP CLEANER. The past history and parts of the chart have been autopopulated. Impression 62 year old woman * acute hypoxemic and hypercarbic respiratory failure * exacerbation of COPD * tobacco dependence * moderate pulmonary htn Plan -nocturnal and prn bipap -fio2 goal spo2 of >88% -keep solumedrol to 40mg iv q12h -trc/nebs -s/p 5 day course of zithromax -will evaluate for need for acute inpatient/STR pulmonary rehab such as [facility] DVT prophylaxis at all times DNR/DNI prognosis guarded and yodit poor prognosis for recovery TTS 35 min Discussed to consider palliative care consultation, family is not read at this time if no events, will DG to floors
--- NOTE | 2017-12-09 09:36 | Transfer of Care Summary ---
Hospital Course Course Hospital Course: Reason for ICU admission: Low threshold for Intubation/Hypotension HPI: Ms. John is a 62-year-old woman with PMH of COPD not on home oxygen (had but returned alf due to financial reasons), alcohol abuse, and 50+-pack-year tobacco use active smoker seen for evaluation of progressively worsening shortness of breath with productive cough and chest pain. Patient was previously admitted to [facility] from 08/21/16-08/23/16 for complaints of fatigue and shortness of breath for which she was admitted to the inpatient service for COPD exacerbation and treated with intravenous antibiotics and steroids. She was discharged home on a steroid taper and 2 L of supplemental oxygen. Patient was referred to audio/video engineer Rex Grant MD to follow-up with as an outpatient but appears to have been lost to follow-up. Patient was also not followed up by PCP Vince Garcia since 2016. Patient reported difficulty breathing with productive cough of thick whitish sputum, and acute worsening 2 days prior to admission. Patient also reported intermittent attack of 6/10 epigastric chest discomfort describes of a burning sensation radiating to her throat without any aggravating/alleviating factors. Interval events in the ICU: Upon transferring to ICU, patient was continued on Solu-Medrol 40 mg every 6, azithromycin to complete a 5 day course, TRC/nebulizer, and BiPAP for 24 hours, which on the above treatment has weaned down gradually do not ICU course, currently on Solu-Medrol 40 mg every 12 hours (day 2), BiPAP overnight, and as needed, and reduce to 4 L nasal cannula while off BiPAP for daily activities including eating, improve appetite, and complete a 5 day course of Zithromax. Patient blood pressure has been holding well with no sudden decrease over the ICU course. At this point patient may be stable downgrade to general medicine floor to continue care, and arrange discharge disposition to acute [facility] such as [place]. dot compliance manager Linda on board for discharge disposition, PT eval pending. Patient is now out of bed, with improved appetite , more conversational and cooperative. Mechanical ventilation: No NIPPV: BiPAP overnight and PRN as above, and 4LNC in daytime to keep SpO2 >92% Antibiotics plan: s/p Zithromax x 5 days Catheters/ Lines plan: None Things to be followed up in the floor: - Taper steroids per pulm, including outpatient tapering - PT eval pending - Discharge planning - Home O2/BiPAP arrangement per CaseMgr DVT prophylaxis: Pharm PPX + ALPS Heart Healthy Diet DNR/DNI Assessment/Plan: as above
[2017-12-10] VITALS: BP 110/70
[2017-12-10 04:00] VITALS: BP 110/70
[2017-12-10 06:58] VITALS: BP 94/60
[2017-12-10 07:49] LABS: ABSOLUTE BASOPHIL COUNT 0 /CUMM (0.0-0.2); ABSOLUTE EOSINOPHIL COUNT 0 /CUMM (0.0-0.7); ABSOLUTE LYMPH COUNT 0.4 /CUMM (1.2-3.4); ABSOLUTE MONOCYTE COUNT 0.1 /CUMM (0.10-0.60)
[2017-12-10 08:09] LABS: ABSOLUTE GRANULOCYTE CT 4.6 /CUMM (1.4-6.5); BASOPHIL % 0 % (0.0-2.0); EOSINOPHIL % 0 % (0-5); MEAN CORPUSCULAR HGB 31.5 PG (27.0-31.0); MEAN CORPUSCULAR HGB CONC 33.3 G/DL (33.0-37.0); MEAN CORPUSCULAR VOLUME 94.5 FL (81.0-99.0); MEAN PLATELET VOLUME 7.9 FL (7.4-10.4); PLATELET COUNT 142 /CUMM (130-400); RED BLOOD CELL CT 5.54 /CUMM (4.20-5.40); WHITE BLOOD CELL COUNT 5.1 /CUMM (4.8-10.8)
[2017-12-10 08:13] LABS: HEMATOCRIT 52.4 % (37-47)
[2017-12-10 08:49] LABS: GRANULOCYTE % 89.9 % (42.2-75.2)
--- NOTE | 2017-12-10 12:15 | PN- Pulmonary ---
Subjective HPI/Critical Care Issues: pt seen and examined feeling much better overall Objective Current Medications: Current Medications Sig/Nishant Start time Last Medication Dose Route Stop Time Status Admin Acetaminophen 650 MG Q6P PRN 12/02 1015 AC PO Al Hydroxide/Mg 30 ML Q4-6 PRN PRN 12/03 1015 AC 12/06 Hydroxide PO 1028 Albuterol Sulfate 3 ML EVERY 4 HRS/AWAKE 12/02 1600 AC 12/10 INH 1128 Benzocaine/Menthol 1 TORIE Q2P PRN 12/03 0830 AC PO Enoxaparin Sodium 40 MG DAILY 12/03 0900 AC 12/09 SC 0801 Guaifenesin 600 MG Q12 12/07 0900 AC 12/10 PO 0901 Insulin Aspart 0 TIDAC 12/03 1200 AC 12/07 SC 0804 Ipratropium [place] 2.5 ML EVERY 4 HRS/AWAKE 12/02 1600 AC 12/10 INH 1128 Melatonin 5 MG AT BEDTIME 12/03 0245 AC 12/09 PO 2330 Methylprednisolone 40 MG Q12 12/08 2100 DC 12/10 IV 0900 Nicotine 14 MG DAILY 12/07 0900 AC 12/10 TOP 0901 Pantoprazole Sodium 40 MG DAILY 12/04 0945 AC 12/10 IV 0900 Prednisone 30 MG DAILY 12/20 0900 AC PO 12/22 09 Prednisone 40 MG DAILY 12/17 0900 AC PO 12/19 0901 Prednisone 50 MG DAILY 12/14 0900 AC PO 12/16 0901 Prednisone 60 MG DAILY 12/11 0900 CAN PO 12/23 0859 Prednisone 60 MG DAILY 12/11 0900 AC PO 12/13 0901 Sodium Chloride 2 SPRAY Q4P PRN 12/07 0800 AC STARR Vital Signs & I&O Last 24 Hrs of Vitals and I&O: Vital Signs Date Time Temp Pulse Resp B/P B/P Pulse O2 O2 Flow FiO2 Mean Ox Delivery Rate 12/10 1451 98.4 95 20 110/65 94 Nasal Cannula 12/10 0800 95 Nasal 4.0L Cannula 12/10 0743 99 Nasal 4.0L Cannula 12/10 0658 97.9 74 20 94/60 97 Nasal 4.0L Cannula 12/10 0513 87 97 12/10 0400 98.3 80 20 110/70 12/10 0052 82 94 12/10 0000 98.3 80 20 110/70 12/10 0000 92 BIPAP 12/09 2250 80 92 12/09 2219 98.3 88 20 97 Nasal Cannula 12/09 2200 98.9 90 20 110/70 12/09 2000 98.9 90 20 70 12/09 1615 93 Nasal 4.0L Cannula 12/09 1600 93 Nasal 4.0L Cannula Intake & Output 12/10 1600 12/10 0800 12/10 0000 Intake Total 240 800 Output Total 450 Balance 240 350 Intake, Oral 240 800 Output, Urine 450 Patient 90 lb Weight Weight Bed scale Measurement Method Exam Other Physical Findings: gen-aaox3 h/n-ncat cvs-s1,s2 lungs-diminished, prolonged end expiratory phase abd-soft, bs+ ext-without edema Results Last 24 Hrs of Lab Results: Laboratory Tests 12/10/17 0707: Anion Gap 14, Estimated GFR > 60, Glucose 114 H, Calcium 9.5, Phosphorus 5.1 H , Magnesium 1.9, Total Bilirubin 1.1, AST 35, ALT 47, Albumin 4.4, CBC w Diff NO MAN DIFF REQ, RBC 5.54 H, MCV 94.5, MCH 31.5 H, MCHC 33.3, RDW 13.0, MPV 7.9, Gran % 89.9 H, Lymphocytes % 7.4 L, Monocytes % 2.7, Eosinophils % 0, Basophils % 0, Absolute Granulocytes 4.6, Absolute Lymphocytes 0.4 L, Absolute Monocytes 0.1, Absolute Eosinophils 0, Absolute Basophils 0 Impression/Plan Impression/Plan Impression/Plan: Rex Lewis M.D. have examined this patient, reviewed available EMR data, personally reviewed images, discussed with resident/PA/GAS METER MECHANIC, discussed management plan with housestaff and nursing staff, discussed managment plan all of healthcare providers, discussed management plan with patient and/or family, agreed with resident/PA/GAS METER MECHANIC. The past history and parts of the chart have been autopopulated. Impression 62 year old woman * acute hypoxemic and hypercarbic respiratory failure * exacerbation of COPD * tobacco dependence * moderate pulmonary htn Plan -add xanax 0.5mg tonight prior to bipap -nocturnal and prn bipap, will need to re-evaluate bipap need in the next 24-48 hrs -fio2 goal spo2 of >88% -taper steroids to prednisone 60mg -trc/nebs -s/p 5 day course of zithromax -will evaluate for need for acute inpatient/STR pulmonary rehab such as ashia DVT prophylaxis at all times DNR/DNI Will benefit from STR (Juan is a consideration) Discussed to consider palliative care consultation, family is not read at this time
--- NOTE | 2017-12-10 12:58 | PN- Housestaff ---
Jose STEIN,Daly 12/10/17 1257: Subjective Follow-up For: Acute hypoxic hypercarbic respiratory failure endstage COPD Subjective: Seen and examined at bedside Appears stable, no overnight events, remained on BIPAP overnight. Able to walk around, trying to quit. Review of Systems Constitutional: Reports: see HPI. Objective Last 24 Hrs of Vital Signs/I&O Vital Signs Date Time Temp Pulse Resp B/P B/P Pulse O2 O2 Flow FiO2 Mean Ox Delivery Rate 12/10 0800 95 Nasal 4.0L Cannula 12/10 0743 99 Nasal 4.0L Cannula 12/10 0658 97.9 74 20 94/60 97 Nasal 4.0L Cannula 12/10 0513 87 97 12/10 0400 98.3 80 20 110/70 12/10 0052 82 94 12/10 0000 98.3 80 20 110/70 12/10 0000 92 BIPAP 12/09 2250 80 92 12/09 2219 98.3 88 20 110/70 97 Nasal Cannula 12/09 2200 98.9 90 20 110/70 12/09 2000 98.9 90 20 110/70 12/09 1615 93 Nasal 4.0L Cannula 12/09 1600 93 Nasal 4.0L Cannula 12/09 1400 98.7 65 20 106/68 12/09 1304 98.7 90 22 106/68 93 Nasal 4.0L Cannula Intake & Output 12/10 1600 12/10 0800 12/10 0000 Intake Total 240 800 Output Total 450 Balance 240 350 Intake, Oral 240 800 Output, Urine 450 Patient 40.823 kg Weight Weight Bed scale Measurement Method Physical Exam General Appearance: Alert, Oriented X3, cachexic Skin: No Rashes, No Breakdown Skin Temp/Moisture Exam: Warm/Dry HEENT: Atraumatic, PERRLA, EOMI Neck: Supple Cardiovascular: Normal S1, Normal S2, No Murmurs Lungs: Clear to Auscultation, Normal Air Movement Abdomen: Normal Bowel Sounds, Soft, No Tenderness Neurological: Strength at 5/5 X4 Ext, Normal Tone, Sensation Intact Extremities: No Clubbing, No Cyanosis, No Edema Current Medications: Current Medications Sig/Nishant Start time Last Medication Dose Route Stop Time Status Admin Acetaminophen 650 MG Q6P PRN 12/02 1015 AC PO Al Hydroxide/Mg 30 ML Q4-6 PRN PRN 12/03 1015 AC 12/06 Hydroxide PO 1028 Albuterol Sulfate 3 ML EVERY 4 HRS/AWAKE 12/02 1600 AC 12/10 INH 1128 Benzocaine/Menthol 1 TORIE Q2P PRN 12/03 0830 AC PO Enoxaparin Sodium 40 MG DAILY 12/03 0900 AC 12/09 SC 0801 Guaifenesin 600 MG Q12 12/07 0900 AC 12/10 PO 0901 Insulin Aspart 0 TIDAC 12/03 1200 AC 12/07 SC 0804 Ipratropium [place] 2.5 ML EVERY 4 HRS/AWAKE 12/02 1600 AC 12/10 INH 1128 Melatonin 5 MG AT BEDTIME 12/03 0245 AC 12/09 PO 2330 Methylprednisolone 40 MG Q12 12/08 2100 DC 12/10 IV 0900 Nicotine 14 MG DAILY 12/07 0900 AC 12/10 TOP 0901 Pantoprazole Sodium 40 MG DAILY 12/04 0945 AC 12/10 IV 0900 Sodium Chloride 2 SPRAY Q4P PRN 12/07 0800 AC STARR Last 24 Hrs of Lab/Conner Results Last 24 Hrs of Labs/Mics: Laboratory Tests 12/10/17 0707: Anion Gap 14, Estimated GFR > 60, Glucose 114 H, Calcium 9.5, Phosphorus 5.1 H , Magnesium 1.9, Total Bilirubin 1.1, AST 35, ALT 47, Albumin 4.4, CBC w Diff NO MAN DIFF REQ, RBC 5.54 H, MCV 94.5, MCH 31.5 H, MCHC 33.3, RDW 13.0, MPV 7.9, Gran % 89.9 H, Lymphocytes % 7.4 L, Monocytes % 2.7, Eosinophils % 0, Basophils % 0, Absolute Granulocytes 4.6, Absolute Lymphocytes 0.4 L, Absolute Monocytes 0.1, Absolute Eosinophils 0, Absolute Basophils 0 Assessment/Plan Assessment: Ms. John is a 62-year-old woman with PMH of COPD not on home oxygen (had but returned prison due to financial reasons), alcohol abuse, and 50+-pack-year tobacco use active smoker seen for evaluation of progressively worsening shortness of breath with productive cough and chest pain. Patient was previously admitted to [facility] from 08/21/16-08/23/16 for complaints of fatigue and shortness of breath for which she was admitted to the inpatient service for COPD exacerbation and treated with intravenous antibiotics and steroids. She was discharged home on a steroid taper and 2 L of supplemental oxygen. Patient was referred to director of people Rex Grant MD to follow-up with as an outpatient but appears to have been lost to follow-up. Patient was also not followed up by PCP Vince Garcia since 2016. Patient reported difficulty breathing with productive cough of thick whitish sputum, and acute worsening 2 days prior to admission. Patient also reported intermittent attack of 6/10 epigastric chest discomfort describes of a burning sensation radiating to her throat without any aggravating/alleviating factors. Intially admitted to telemtry and transferred to ICU for closer monitoring due to risk of decompensation. Transferred to general medicine floor Plan acute hypoxic hypercarbic respiratory failure - resolved. End stage COPD with acute exacerbation Patient was continued on Solu-Medrol 40 mg every 6, a 5 day course of azithromycin given. Placed on BiPAP given persistent acidemia on ABG and hypercarbia. Slowly tapered off BIPAP to nocturnal time. Currently on solumedrol , we will discontinue and start on oral prednisone. she is clearly short of breath even with eating and cachexic. Needs BIPAP at night upon discharge and placement. ELAINA index - 10 points with 18% chances of survival in the next 4 yrs. Active smoking 50 pack year till the time of admission. Reports thinking of quitting. High blood sugars On sliding scale while on steroids DVT prophylaxis SC lovenox Code status DNR/DNI Problem List: 1. Acute respiratory failure with hypoxia 2. COPD exacerbation Pain Ratin Pain Location: n/a Pain Goal: Pain 4 or less Pain Plan: tylenol Tomorrow's Labs & Rationales: none Rex Grant MD 12/10/17 1502: Attending MD Review Statement Attending Statement Attending MD Statement: examined this patient, discuss w/resident/PA/CHILD CARE EDUCATION COORDINATOR, agreed w/resident/PA/CHILD CARE EDUCATION COORDINATOR, discussed with family, reviewed EMR data (avail), discussed with nursing, discussed with case mgmt, reviewed images, amended to note Attending Assessment/Plan: see pulmonary progress note for attending note
[2017-12-10 14:51] VITALS: BP 110/65
[2017-12-10 22:07] VITALS: BP 109/62
[2017-12-11 06:47] VITALS: BP 108/60
--- NOTE | 2017-12-11 09:07 | PN- Housestaff ---
Ney Carroll 12/11/17 0858: Subjective Follow-up For: COPD Acute hypoxic/hypercarbic respiratory failure Complaints: no complaints Subjective: She feels well, and didnt have any new concnerns. She was walking using a walker this am, when i walked into her room. Vitals remained stable overnight. She was on 4 liters of oxygen overnight, that was titrated to 2 lit. Reported occassional dyspnea, on exertion only. Overall, she feels improved compared to when she came in. Review of Systems Constitutional: Reports: see HPI. Objective Last 24 Hrs of Vital Signs/I&O Vital Signs Date Time Temp Pulse Resp B/P B/P Pulse O2 O2 Flow FiO2 Mean Ox Delivery Rate 12/11 0647 97.4 76 18 108/60 96 Nasal 4.0L Cannula 12/11 0441 69 97 12/11 0000 98 Nasal 4.0L Cannula 12/10 2249 83 98 12/10 2207 99.1 92 18 109/62 97 12/10 1619 94 Nasal 4.0L Cannula 12/10 1451 98.4 95 20 110/65 94 Nasal Cannula Intake & Output 12/11 1600 12/11 0800 12/11 0000 Intake Total 100 100 Output Total Balance 100 100 Intake, Oral 100 100 Patient 90 lb 9 oz Weight Weight Bed scale Measurement Method Physical Exam General Appearance: No Acute Distress Other Physical Findings: General Appearance: Alert, Oriented X3, cachexic Skin: No Rashes, No Breakdown Skin Temp/Moisture Exam: Warm/Dry HEENT: Atraumatic, PERRLA, EOMI Neck: Supple Cardiovascular: Normal S1, Normal S2, No Murmurs Lungs: Clear to Auscultation, Normal Air Movement Abdomen: Normal Bowel Sounds, Soft, No Tenderness Neurological: Strength at 5/5 X4 Ext, Normal Tone, Sensation Intact Extremities: No Clubbing, No Cyanosis, No Edema Current Medications: Current Medications Sig/Nishant Start time Last Medication Dose Route Stop Time Status Admin Acetaminophen 650 MG Q6P PRN 12/02 1015 AC PO Al Hydroxide/Mg 30 ML Q4-6 PRN PRN 12/03 1015 AC 12/06 Hydroxide PO 1028 Albuterol Sulfate 3 ML EVERY 4 HRS/AWAKE 12/02 1600 AC 12/11 INH 0814 Alprazolam 0.5 MG ONCE ONE 12/10 2200 DC 12/10 PO 12/10 2201 2144 Benzocaine/Menthol 1 TORIE Q2P PRN 12/03 0830 AC PO Enoxaparin Sodium 40 MG DAILY 12/03 0900 AC 12/09 SC 0801 Guaifenesin 600 MG Q12 12/07 0900 AC 12/10 PO 2031 Insulin Aspart 0 TIDAC 12/03 1200 AC 12/10 SC 1908 Ipratropium [place] 2.5 ML EVERY 4 HRS/AWAKE 12/02 1600 AC 12/11 INH 0814 Melatonin 5 MG AT BEDTIME 12/03 0245 AC 12/10 PO 2144 Methylprednisolone 40 MG Q12 12/08 2100 DC 12/10 IV 0900 Nicotine 14 MG DAILY 12/07 0900 AC 12/10 TOP 0901 Pantoprazole Sodium 40 MG DAILY 12/04 0945 AC 12/10 IV 0900 Prednisone 30 MG DAILY 12/20 0900 AC PO 12/22 0901 Prednisone 40 MG DAILY 12/17 0900 AC PO 12/19 0901 Prednisone 50 MG DAILY 12/14 0900 AC PO 12/16 0901 Prednisone 60 MG DAILY 12/11 0900 CAN PO 12/23 0859 Prednisone 60 MG DAILY 12/11 0900 AC PO 12/13 0901 Sodium Chloride 2 SPRAY Q4P PRN 12/07 0800 AC STARR Assessment/Plan Assessment: Ms. John is a 62-year-old woman with PMH of COPD not on home oxygen(couldnt afford), alcohol abuse, and 50+ pack-year tobacco use active smoker was admitted for worsening dyspnea with productive cough and chest pain. Shw was recently admitted to [facility] from 08/21/16-08/23/16 for acute exacerbation of COPD. ELAINA index - 10 points with 18% chances of survival in the next 4 yrs. Intially admitted to telemtry and transferred to ICU for closer monitoring due to risk of decompensation. Shw was transferred to general medicine floor after she was more stable. Plan acute hypoxic hypercarbic respiratory failure - resolved. 1. End stage COPD with acute exacerbation Patient was continued on Solu-Medrol 40 mg every 6, a 5 day course of azithromycin given. Placed on BiPAP given persistent acidemia on ABG and hypercarbia. Slowly tapered off BIPAP to nocturnal time only. She was on iv solumedrol, which has been tapered to po prednisone. Discussed the plan w/ the munitions handler who thought that she should be off bipap overnight, and check ABG in the am. If PCO2 is above 60, which would warrant using BiPAP in the future. Informed the respiratory therapist. Active smoking 50 pack year till the time of admission. Plans to quit. Smoking cessation counseling. High blood sugars On sliding scale while on steroids. currently well controlled. Increased HCT: - Likely due to hemoconcentration or due to secondary pulm causes. - Repeat CBC in the am to make sure that this is not a lab error. - If it continues to be high, would consider workup given slightly elevated HCT, low platelets. Abnormal electrolytes Would re-check phosphorous in the am, given elevation. No obvious kidney injury. Problem List: 1. COPD exacerbation 2. Hypoxia Pain Ratin Pain Location: back Pain Goal: Pain 4 or less Pain Plan: tylenol prn Tomorrow's Labs & Rationales: Rex Murray MD 12/11/17 1349: Attending MD Review Statement Attending Statement Attending MD Statement: examined this patient, discuss w/resident/PA/PIN STICKER, agreed w/resident/PA/PIN STICKER, discussed with family, reviewed EMR data (avail), discussed with nursing, discussed with case mgmt, reviewed images, amended to note Attending Assessment/Plan: Rex Lewis M.D. have examined this patient, reviewed available EMR data, personally reviewed images, discussed with resident/PA/PIN STICKER, discussed management plan with housestaff and nursing staff, discussed managment plan all of healthcare providers, discussed management plan with patient and/or family, agreed with resident/PA/PIN STICKER. The past history and parts of the chart have been autopopulated. Impression 62 year old woman * acute hypoxemic and hypercarbic respiratory failure * exacerbation of COPD * tobacco dependence * moderate pulmonary htn Plan -xanax 0.5mg po qhs -trial off bipap tonight, ABG first thing in am, can continue on oxygen, if pco2 >60 then will resume nocturnal bipap -fio2 goal spo2 of >88% -taper steroids as ordered -trc/nebs -will evaluate for need for acute inpatient/STR pulmonary rehab such as ashia DVT prophylaxis at all times DNR/DNI Will benefit from STR (Martinez is a consideration)
[2017-12-11 14:15] VITALS: BP 100/57
[2017-12-11 14:36] VITALS: BP 110/72
[2017-12-11 23:02] VITALS: BP 110/60
[2017-12-12 06:55] VITALS: BP 122/72
--- NOTE | 2017-12-12 08:11 | PN- Housestaff ---
See Addendum Subjective Follow-up For: end stage copd hypercarbic respiratory failure requiring bipap Subjective: resting comfortably on supplemental oxygen feeling alot better has some questions about bipap and its ongoing need, d/c planning etc afebrile Review of Systems Constitutional: Reports: see HPI. Objective Last 24 Hrs of Vital Signs/I&O Vital Signs Date Time Temp Pulse Resp B/P B/P Pulse O2 O2 Flow FiO2 Mean Ox Delivery Rate 12/12 0832 97 Nasal 1.0L Cannula 12/12 0800 Nasal 1.0L Cannula 12/12 0655 97.9 82 18 122/72 98 Nasal 1.0L Cannula 12/12 0000 Nasal 1.0L Cannula 12/11 2302 98.2 100 18 110/60 94 Nasal Cannula 12/11 1600 93 Nasal 1.0L Cannula 12/11 1600 95 Nasal 2.0L Cannula 12/11 1436 110/72 12/11 1415 98.3 108 18 100/57 92 Intake & Output 12/12 1600 12/12 0800 12/12 0000 Intake Total 100 600 Output Total 400 Balance 100 200 Intake, Oral 100 600 Output, Urine 400 Physical Exam General Appearance: Alert, Oriented X3, Cooperative, No Acute Distress Cardiovascular: Regular Rate, Normal S1, Normal S2, No Murmurs Lungs: minimal scattered expiratory wheezing, prolonged expiratory phase, mildly diminished air movement Abdomen: Normal Bowel Sounds, Soft, No Tenderness, No Masses Extremities: No Clubbing, No Cyanosis, No Edema, Normal Pulses Current Medications: Current Medications Sig/Nishant Start time Last Medication Dose Route Stop Time Status Admin Acetaminophen 650 MG Q6P PRN 12/02 1015 AC PO Al Hydroxide/Mg 30 ML Q4-6 PRN PRN 12/03 1015 AC 12/06 Hydroxide PO 1028 Albuterol Sulfate 3 ML EVERY 4 HRS/AWAKE 12/02 1600 AC 12/12 INH 0807 Alprazolam 0.5 MG AT BEDTIME NEED.. 12/11 1145 AC 12/11 PO 12/18 1144 2114 Benzocaine/Menthol 1 TORIE Q2P PRN 12/03 0830 AC PO Enoxaparin Sodium 40 MG DAILY 12/03 09 AC 12/09 SC 0801 Guaifenesin 600 MG Q12 12/07 0900 AC 12/12 PO 0824 Insulin Aspart 0 TIDAC 12/03 1200 AC 12/10 SC 1908 Ipratropium [place] 2.5 ML EVERY 4 HRS/AWAKE 12/02 1600 AC 12/12 INH 0807 Melatonin 5 MG AT BEDTIME 12/03 0245 AC 12/11 PO 2114 Nicotine 14 MG DAILY 12/07 0900 AC 12/12 TOP 0824 Pantoprazole Sodium 40 MG DAILY 12/04 0945 AC 12/12 IV 0824 Prednisone 30 MG DAILY 12/20 09 AC PO 12/22 0901 Prednisone 40 MG DAILY 12/17 09 AC PO 12/19 0901 Prednisone 50 MG DAILY 12/14 0900 AC PO 12/16 0901 Prednisone 60 MG DAILY 12/11 0900 AC 12/12 PO 12/13 0901 0942 Sodium Chloride 2 SPRAY Q4P PRN 12/11 1100 AC 12/11 STARR 1738 Sodium Chloride 2 SPRAY Q4P PRN 12/07 0800 DC STARR Last 24 Hrs of Lab/Conner Results Last 24 Hrs of Labs/Mics: Laboratory Tests 12/12/17 0740: CBC w Diff NO MAN DIFF REQ, RBC 4.91, MCV 95.5, MCH 31.2 H, MCHC 32.7 L, RDW 12.9, MPV 7.9, Gran % 78.0 H, Lymphocytes % 16.0 L, Monocytes % 4.9, Eosinophils % 0.9, Basophils % 0.2, Absolute Granulocytes 5.6, Absolute Lymphocytes 1.1 L, Absolute Monocytes 0.4, Absolute Eosinophils 0.1, Absolute Basophils 0 12/12/17 0605: pH 7.38, pCO2 64 *H, pO2 67 L, HCO3 37 H, ABG O2 Sat (Measured) 93.0 L, P-50 (Temp Corrected) N, Carboxyhemoglobin 1.6, O2 Concentration % 1L, O2 Delivery Method N/C, Phlebotomy Draw Site RIGHT RADIAL 12/11/17 1800: CBC w Diff Cancelled, WBC Cancelled, RBC Cancelled, Hgb Cancelled, Hct Cancelled , MCV Cancelled, MCH Cancelled, MCHC Cancelled, RDW Cancelled, Plt Count Cancelled, MPV Cancelled Assessment/Plan Assessment: 62 year old female with PMH of COPD not on home oxygen for financial reasons and current smoker 50+ packyears was admitted for worsening dyspnea, productive cough and chest pain. Last admitted 08/21/16-08/23/16 for acute exacerbation of COPD. End stage COPD with hypercarbic hypoxemic respiratory failure: Managed with BiPAP Overnight on nasal cannula, repeat ABG 7.38///37 Persistent hypercarbic respiratory failure will require nocturnal bipap + prn on disharge Currently on prednisone taper, previously treated with intravenous solumedrol s/p treatment with azithromycin, no sputum culture Stable COPD on chest x-ray, no infiltrate, afebrile from admission May give xanax prn prior to BiPAP Continue mucinex and nebulized albuterol and ipatropium TRC evaluation Nicotine replacement therapy Hyperglycemia: on steroids Accuchecks TIDAC, 90-200 Continue sliding scale insulin coverage Regular diet DVT ppx-lovenox 40mg subcutaneous and ALPs DNR/DNI Awaiting STR placement with bipap Problem List: 1. Acute respiratory failure with hypoxia 2. Acute and chronic respiratory failure with hypoxia 3. COPD exacerbation Pain Ratin Pain Location: n/a Pain Goal: Pain 4 or less Pain Plan: prn Tomorrow's Labs & Rationales: nathalia blancas
[2017-12-12 08:15] LABS: ABSOLUTE BASOPHIL COUNT 0 /CUMM (0.0-0.2); ABSOLUTE EOSINOPHIL COUNT 0.1 /CUMM (0.0-0.7); ABSOLUTE LYMPH COUNT 1.1 /CUMM (1.2-3.4); ABSOLUTE MONOCYTE COUNT 0.4 /CUMM (0.10-0.60); MEAN PLATELET VOLUME 7.9 FL (7.4-10.4); RED BLOOD CELL CT 4.91 /CUMM (4.20-5.40)
[2017-12-12 08:31] LABS: BASOPHIL % 0.2 % (0.0-2.0); EOSINOPHIL % 0.9 % (0-5); MEAN CORPUSCULAR HGB 31.2 PG (27.0-31.0); MEAN CORPUSCULAR HGB CONC 32.7 G/DL (33.0-37.0); MEAN CORPUSCULAR VOLUME 95.5 FL (81.0-99.0); PLATELET COUNT 135 /CUMM (130-400); RBC DISTRIBUTION WIDTH 12.9 % (11.5-14.5); WHITE BLOOD CELL COUNT 7.2 /CUMM (4.8-10.8)
[2017-12-12 08:35] LABS: ABSOLUTE GRANULOCYTE CT 5.6 /CUMM (1.4-6.5); HEMATOCRIT 46.8 % (37-47)
[2017-12-12 14:34] VITALS: BP 99/56
[2017-12-12 22:01] VITALS: BP 106/65
[2017-12-13 06:30] VITALS: BP 98/60
--- NOTE | 2017-12-13 07:54 | PN- Housestaff ---
See Addendum Jose STEIN,Daly 12/13/17 0753: Subjective Follow-up For: End stage COPD active smoking Subjective: seen at bedside Reports feeling much better, cough at baseline. Did not use bipap yesterday. she is able to eat well, no shortness of breath with short distances. Review of Systems Constitutional: Reports: see HPI. Objective Last 24 Hrs of Vital Signs/I&O Vital Signs Date Time Temp Pulse Resp B/P B/P Pulse O2 O2 Flow FiO2 Mean Ox Delivery Rate 12/13 0630 98.1 72 16 98/60 94 Nasal 0.5L Cannula 12/13 0000 91 Nasal 0.5L Cannula 12/12 2230 91 Nasal 0.5L Cannula 12/12 2201 98.3 92 18 106/65 91 12/12 2020 96 Nasal 1.0L Cannula 12/12 1630 82 Nasal 1.0L Cannula 12/12 1434 98.3 86 20 99/56 94 12/12 0832 97 Nasal 1.0L Cannula 12/12 0800 Nasal 1.0L Cannula Intake & Output 12/13 0800 12/13 0000 12/12 1600 Intake Total 250 250 320 Output Total Balance 250 250 320 Intake, IV 10 10 Intake, Oral 240 240 320 Patient 40.852 kg Weight Weight Bed scale Measurement Method Physical Exam General Appearance: Alert, Oriented X3, Cooperative, No Acute Distress, very cachexic Skin: No Rashes, No Breakdown Skin Temp/Moisture Exam: Warm/Dry HEENT: Atraumatic, PERRLA, EOMI Neck: Supple, No JVD Cardiovascular: Normal S1, Normal S2 Lungs: Clear to Auscultation, Normal Air Movement Abdomen: Normal Bowel Sounds, Soft, No Tenderness Neurological: Normal Gait, Normal Speech, Normal Tone Extremities: No Clubbing, No Cyanosis, No Edema Current Medications: Current Medications Sig/Nishant Start time Last Medication Dose Route Stop Time Status Admin Acetaminophen 650 MG Q6P PRN 12/02 1015 AC PO Al Hydroxide/Mg 30 ML Q4-6 PRN PRN 12/03 1015 AC 12/06 Hydroxide PO 1028 Albuterol Sulfate 3 ML EVERY 4 HRS/AWAKE 12/02 1600 AC 12/13 INH 0830 Alprazolam 0.5 MG AT BEDTIME NEED.. 12/11 1145 AC 12/12 PO 12/18 1144 2309 Benzocaine/Menthol 1 TORIE Q2P PRN 12/03 0830 AC PO Enoxaparin Sodium 40 MG DAILY 12/03 0900 AC 12/09 SC 0801 Guaifenesin 600 MG Q12 12/07 0900 AC 12/12 PO 2209 Insulin Aspart 0 TIDAC 12/03 1200 AC 12/10 SC 1908 Ipratropium [place] 2.5 ML EVERY 4 HRS/AWAKE 12/02 1600 AC 12/13 INH 0830 Melatonin 5 MG AT BEDTIME 12/03 0245 AC 12/12 PO 2309 Nicotine 14 MG DAILY 12/07 0900 AC 12/12 TOP 0824 Omeprazole 40 MG DAILY AC 12/13 0700 AC 12/13 PO 0431 Pantoprazole Sodium 40 MG DAILY 12/04 0945 DC 12/12 IV 0824 Prednisone 30 MG DAILY 12/20 0900 AC PO 12/22 0901 Prednisone 40 MG DAILY 12/17 0900 AC PO 12/19 0901 Prednisone 50 MG DAILY 12/14 0900 AC PO 12/16 0901 Prednisone 60 MG DAILY 12/11 0900 DC 12/12 PO 12/13 0901 0942 Sodium Chloride 2 SPRAY Q4P PRN 12/11 1100 AC 12/11 STARR 1738 Last 24 Hrs of Lab/Conner Results Last 24 Hrs of Labs/Mics: Laboratory Tests 12/13/17 0750: Anion Gap 6, Estimated GFR > 60, BUN/Creatinine Ratio 40.0 H, Phosphorus 2.8, Magnesium 1.5 L Assessment/Plan Assessment: Ms. John is a 62-year-old woman with PMH of COPD not on home oxygen (had but returned alf due to financial reasons), alcohol abuse, and 50+-pack-year tobacco use active smoker seen for evaluation of progressively worsening shortness of breath with productive cough and chest pain. Patient was previously admitted to [facility] from 08/21/16-08/23/16 for complaints of fatigue and shortness of breath for which she was admitted to the inpatient service for COPD exacerbation and treated with intravenous antibiotics and steroids. She was discharged home on a steroid taper and 2 L of supplemental oxygen. Patient was referred to new autos delivery driver Rex Grant MD to follow-up with as an outpatient but appears to have been lost to follow-up. Patient was also not followed up by PCP Vince Garcia since 2016. Patient reported difficulty breathing with productive cough of thick whitish sputum, and acute worsening 2 days prior to admission. Patient also reported intermittent attack of 6/10 epigastric chest discomfort describes of a burning sensation radiating to her throat without any aggravating/alleviating factors. Intially admitted to telemtry and transferred to ICU for closer monitoring due to risk of decompensation. Transferred to general medicine floor Plan acute hypoxic hypercarbic respiratory failure - resolved. End stage COPD with acute exacerbation Patient was continued on Solu-Medrol 40 mg every 6, a 5 day course of azithromycin given. Placed on BiPAP given persistent acidemia on ABG and hypercarbia. Slowly tapered off BIPAP to nocturnal time. she is clearly short of breath even with eating and cachexic. Needs BIPAP at night upon discharge and placement. On steroid taper -- will continue 10mg prednisone after completing the taper. Active smoking 50 pack year till the time of admission. Reports thinking of quitting. High blood sugars On sliding scale while on steroids DVT prophylaxis SC lovenox Code status DNR/DNI Awaits placement Problem List: 1. COPD exacerbation 2. Acute and chronic respiratory failure with hypoxia 3. Cachectic Pain Ratin Pain Location: n/a Pain Goal: Pain 4 or less Pain Plan: tylenol prn Tomorrow's Labs & Rationales: none Santana Page MD 12/13/17 1243: Attending MD Review Statement Attending Statement Attending MD Statement: examined this patient, discuss w/resident/PA/DRAWING IN MACHINE TENDER HELPER, agreed w/resident/PA/DRAWING IN MACHINE TENDER HELPER, discussed with family, reviewed EMR data (avail), discussed with nursing, discussed with case mgmt, amended to note Attending Assessment/Plan: The patient was seen and discussed with house staff, nursing, case management and her son. Appreciate pulmonary input. The patient agrees to STR/pulmonary rehab. Case management looking for a bed. Patient prefers [facility] as Dr. Grant attends there.
--- NOTE | 2017-12-13 09:34 | Discharge Summary ---
Visit Information Visit Dates Admission Date: 12/02/17 Discharge Date: 12/15/2017 Hospital Course Course Attending Physician: Santana Page MD Primary Care Physician: Vince Peraza MD Consulting Request: Consulting Specialty: Critical Care Consulting Physician: Reason for Consult: COPD exacerbation leading to acute hypercarbic hypoxic respiratory failur Hospital Course: Ms. John is a 62-year-old woman with PMH of COPD not on home oxygen (had but returned long-term due to financial reasons), alcohol abuse, and 50+-pack-year tobacco use active smoker seen for evaluation of progressively worsening shortness of breath with productive cough and chest pain. Patient was previously admitted to [facility] from 08/21/16-08/23/16 for complaints of fatigue and shortness of breath for which she was admitted to the inpatient service for COPD exacerbation and treated with intravenous antibiotics and steroids. She was discharged home on a steroid taper and 2 L of supplemental oxygen. Patient was referred to fermenter wine Rex Grant MD to follow-up with as an outpatient but appears to have been lost to follow-up. Patient was also not followed up by PCP Vince Garcia since 2015. Patient reported difficulty breathing with productive cough of thick whitish sputum, and acute worsening 2 days prior to admission. Patient also reported intermittent attack of 6/10 epigastric chest discomfort describes of a burning sensation radiating to her throat without any aggravating/alleviating factors. Intially admitted to telemtry and transferred to ICU for closer monitoring due to risk of decompensation. She was subsequently transferred to be the general medical service. Below is a problem list and summary of care she received under us. End stage COPD with acute exacerbation Patient was continued on Solu-Medrol 40 mg every 6 Hours, a 5 day course of azithromycin given. Placed on BiPAP given persistent acidemia on ABG and hypercarbia. Slowly tapered off BIPAP to nocturnal time. At the time of discharge the patient was sent home on a steroid taper. She was also given a prescription for nicotine patches. She was asked to continue the rest of her home medications including Breo and Spiriva. She was given instructions to follow-up with her primary care physician and her fermenter wine Dr. Grant. Patient does have an extensive smoking history. She was asked to strongly consider smoking cessation. Declined palliative care consult in the hospital. ELAINA score - 10points. DVT prophylaxis patient was maintained on subcutaneous Lovenox. Code status DNR/DNI Complications: none Allergies: Coded Allergies: NO KNOWN ALLERGIES (06/05/14) Significant Procedures: CXR on 12/02/17 IMPRESSION: Stable appearance of COPD. No acute abnormality. ECHO on 12/07/17 CONCLUSIONS Normal left ventricular systolic function. In some views, right ventricle may be dilated and hypokinetic. No significant Pulmonary hypertension by doppler. Pertinent Lab Results: as above Disposition Summary Disposition Principal Diagnosis: Acute hypoxic hypercarbic respiratory failure COPD exacerbation Additional Diagnosis: active smoking Discharge Disposition: home or self care Discharge Instructions General Discharge Information Code Status: Do Not Resucitate/Intubat Patient's Diet: regular diet Patient's Activity: as tolerated Follow-Up Instructions/Appts: Please follow up with your PCP within a week Please follow up with in a week, you have an appointment on 12/21/2017 at 2.00 PM. Medications at Discharge Discharge Medications: Continue taking these medications: Tiotropium [place] (Spiriva Respimat) 2.5 MCG/ACTUATION MIST.INHAL 2 Puff Inhale through mouth DAILY Qty = 1 Comments: NOT GIVEN IN HOSPITAL Albuterol Sulfate (Proair Hfa) 90 MCG HFA.AER.AD 2 Puff Inhale through mouth EVERY 4-6 HOURS NEEDED as needed for SHORTNESS OF BREATH Qty = 1 Comments: NOT GIVEN IN HOSPITAL Fluticasone/Vilanterol (Breo Ellipta 100-25 Mcg INH) 100 MCG-25 MCG/DOSE BLST.W.DEV 1 Puff Inhale through mouth DAILY Comments: NOT TAKEN IN HOSPITAL Albuterol Sulfate (Albuterol Sulfate) 1.25 MG/3 ML VIAL.NEB 1 Vial Inhale Solution EVERY 4-6 HOURS as needed for SOB Comments: NOT TAKEN IN HOSPITAL Start taking the following new medications: Nicotine (Nicotine Patch) 14 MG/24 HOUR PATCH.TD24 1 Patch On the skin DAILY Qty = 28 No Refills Instructions: . Prednisone (Prednisone) 10 MG TABLET 1 Tablet ORAL SEE INSTRUCTIONS Qty = 60 No Refills Instructions: .On Tab 12/16 5 12/17-12/19 4 12/20-12/22 3 12/23-12/25 2 12/26 10 MG -indefinetely Comments: 50 MG GIVEN 12/15/17 @ 9 AM. CONTINUE TAPER AT HOME Copies To: Karmen STEIN,Vince Mosley; John Grant MD Attending MD Review Statement Documenting Attending: Santana Page MD Other Findings: The patient was seen and agree with the plan of care to transfer to STR/ Pulmonary rehab (?[facility]). Care as per Dr. Grant.
--- NOTE | 2017-12-13 11:17 | PN- Pulmonary ---
Subjective HPI/Critical Care Issues: pt seen and examined feels much better awaitind dc plan to STR still on o2 Objective Current Medications: Current Medications Sig/Nishant Start time Last Medication Dose Route Stop Time Status Admin Acetaminophen 650 MG Q6P PRN 12/02 1015 AC PO Al Hydroxide/Mg 30 ML Q4-6 PRN PRN 12/03 1015 AC 12/06 Hydroxide PO 1028 Albuterol Sulfate 3 ML EVERY 4 HRS/AWAKE 12/02 1600 AC 12/13 INH 0830 Alprazolam 0.5 MG AT BEDTIME NEED.. 12/11 1145 AC 12/12 PO 12/18 1144 2309 Benzocaine/Menthol 1 TORIE Q2P PRN 12/03 0830 AC PO Enoxaparin Sodium 40 MG DAILY 12/03 09 AC 12/09 SC 0801 Guaifenesin 600 MG Q12 12/07 0900 AC 12/13 PO 1039 Insulin Aspart 0 TIDAC 12/03 1200 AC 12/10 SC 1908 Ipratropium [place] 2.5 ML EVERY 4 HRS/AWAKE 12/02 1600 AC 12/13 INH 0830 Melatonin 5 MG AT BEDTIME 12/03 0245 AC 12/12 PO 2309 Nicotine 14 MG DAILY 12/07 0900 AC 12/13 TOP 1042 Omeprazole 40 MG DAILY AC 12/13 0700 AC 12/13 PO 0431 Prednisone 30 MG DAILY 12/20 0900 AC PO 12/22 0901 Prednisone 40 MG DAILY 12/17 0900 AC PO 12/19 0901 Prednisone 50 MG DAILY 12/14 0900 AC PO 12/16 0901 Prednisone 60 MG DAILY 12/11 0900 DC 12/13 PO 12/13 0901 1039 Sodium Chloride 2 SPRAY Q4P PRN 12/11 1100 AC 12/11 STARR 1738 Vital Signs & I&O Last 24 Hrs of Vitals and I&O: Vital Signs Date Time Temp Pulse Resp B/P B/P Pulse O2 O2 Flow FiO2 Mean Ox Delivery Rate 12/13 0836 92 Nasal 0.5L Cannula 12/13 0630 98.1 72 16 98/60 94 Nasal 0.5L Cannula 12/13 0000 91 Nasal 0.5L Cannula 12/12 2230 91 Nasal 0.5L Cannula 12/12 2201 98.3 92 18 106/65 91 12/12 2020 96 Nasal 1.0L Cannula 12/12 1630 82 Nasal 1.0L Cannula 12/12 1434 98.3 86 20 99/56 94 Intake & Output 12/13 1600 12/13 0800 12/13 0000 Intake Total 250 250 Output Total Balance 250 250 Intake, IV 10 10 Intake, Oral 240 240 Results Last 24 Hrs of Lab Results: Laboratory Tests 12/13/17 0750: Anion Gap 6, Estimated GFR > 60, BUN/Creatinine Ratio 40.0 H, Phosphorus 2.8, Magnesium 1.5 L Impression/Plan Impression/Plan Impression/Plan: Impression 62 year old woman * acute on chronic hypoxemic and hypercarbic respiratory failure * exacerbation of COPD * tobacco dependence * moderate pulmonary htn Plan -xanax 0.5mg po qhs - qualifies pt for bipap, however she is reluctant to use it as it causes her significant discomfort, she is compensated and her ph is normal, this is long standing -pt prefers and we agreed on no further bipap as a goal of care preference knowing risks, however if she becomes acutely ill in a hospital setting she can have a trial of bipap if needed -fio2 goal spo2 of >88% -taper steroids as ordered, leave on 10mg prednisone at baseline until re- evaluated -trc/nebs DVT prophylaxis at all times DNR/DNI Will benefit from STR ([facility] is a consideration)
[2017-12-13 14:56] VITALS: BP 100/60
[2017-12-13 22:12] VITALS: BP 106/58
[2017-12-14 06:09] VITALS: BP 120/68
--- NOTE | 2017-12-14 07:09 | PN- Housestaff ---
See Addendum Subjective Follow-up For: COPD Exacerbation Subjective: Ms Pierce was seen and examined this morning. She is resting comfortably in bed , About to enjoy breakfast. States that she had no issues overnight. She is eager to be discharged. She would like to go to [facility] given the fact that she can be rounded on by Dr. Grant. She denies any fever, chills, nausea, vomiting. States that breathing is much better, on 0.5 L via nasal cannula. We discussed smoking cessation at length and states that she would be interested in pursuing nicotine replacement therapy via the patch. Review of Systems Constitutional: Reports: see HPI. Objective Last 24 Hrs of Vital Signs/I&O Vital Signs Date Time Temp Pulse Resp B/P B/P Pulse O2 O2 Flow FiO2 Mean Ox Delivery Rate 12/14 0818 90 Nasal 0.5L Cannula 12/14 0609 97.7 90 22 120/68 92 Nasal 0.5L Cannula 12/13 2304 97 Nasal 0.5L Cannula 12/13 2212 97.3 70 20 106/58 97 12/13 1600 Nasal 0.5L Cannula 12/13 1549 89 Nasal 0.5L Cannula 12/13 1456 98.2 60 21 100/60 95 Room Air 12/13 1343 Nasal 0.5L Cannula 12/13 0836 92 Nasal 0.5L Cannula Intake & Output 12/14 1600 12/14 0800 12/14 0000 Intake Total 250 34 Output Total Balance 250 34 Intake, IV 10 10 Intake, Oral 240 24 Patient 40.058 kg Weight Physical Exam General Appearance: Alert, Oriented X3, Cooperative HEENT: Mucous Membr. moist/pink Cardiovascular: Regular Rate, Normal S1, Normal S2 Lungs: Normal Air Movement Abdomen: Normal Bowel Sounds, Soft, No Tenderness Neurological: Normal Speech, Strength at 5/5 X4 Ext Current Medications: Current Medications Sig/Nishant Start time Last Medication Dose Route Stop Time Status Admin Acetaminophen 650 MG Q6P PRN 12/02 1015 AC PO Al Hydroxide/Mg 30 ML Q4-6 PRN PRN 12/03 1015 AC 12/06 Hydroxide PO 1028 Albuterol Sulfate 3 ML EVERY 4 HRS/AWAKE 12/02 1600 AC 12/14 INH 0813 Alprazolam 0.5 MG AT BEDTIME NEED.. 12/11 1145 AC 12/13 PO 12/18 1144 2229 Benzocaine/Menthol 1 TORIE Q2P PRN 12/03 0830 AC PO Docusate Sodium 100 MG BID 12/13 2245 AC 12/14 PO 0543 Enoxaparin Sodium 40 MG DAILY 12/03 0900 AC 12/09 SC 0801 Guaifenesin 600 MG Q12 12/07 0900 AC 12/14 PO 0817 Insulin Aspart 0 TIDAC 12/03 1200 AC 12/10 SC 1908 Ipratropium [place] 2.5 ML EVERY 4 HRS/AWAKE 12/02 1600 AC 12/14 INH 0813 Melatonin 5 MG AT BEDTIME 12/03 0245 AC 12/13 PO 2229 Nicotine 14 MG DAILY 12/07 09 AC 12/14 TOP 0817 Omeprazole 40 MG DAILY AC 12/13 0700 AC 12/14 PO 0543 Patient Medication 1 ED ONE ONE 12/13 1515 [facility] Teaching ED 12/13 1516 Prednisone 30 MG DAILY 12/20 0900 AC PO 12/22 0901 Prednisone 40 MG DAILY 12/17 0900 AC PO 12/19 0901 Prednisone 50 MG DAILY 12/14 0900 AC 12/14 PO 12/16 0901 0816 Prednisone 60 MG DAILY 12/11 0900 DC 12/13 PO 12/13 0901 1039 Sodium Chloride 2 SPRAY Q4P PRN 12/11 1100 AC 12/11 STARR 1738 Assessment/Plan Assessment: Ms. John is a 62-year-old woman with PMH of COPD not on home oxygen (had but returned retirement due to financial reasons), alcohol abuse, and 50+-pack-year tobacco use active smoker seen for evaluation of progressively worsening shortness of breath with productive cough and chest pain. Patient was previously admitted to [facility] from 08/21/16-08/23/16 for complaints of fatigue and shortness of breath for which she was admitted to the inpatient service for COPD exacerbation and treated with intravenous antibiotics and steroids. She was discharged home on a steroid taper and 2 L of supplemental oxygen. Patient was referred to mine promotor Rex Grant MD to follow-up with as an outpatient but appears to have been lost to follow-up. Patient was also not followed up by PCP Vince Garcia since 2016. Patient reported difficulty breathing with productive cough of thick whitish sputum, and acute worsening 2 days prior to admission. Patient also reported intermittent attack of 6/10 epigastric chest discomfort describes of a burning sensation radiating to her throat without any aggravating/alleviating factors. Intially admitted to telemtry and transferred to ICU for closer monitoring due to risk of decompensation. Continue on general medicine floor Plan acute hypoxic hypercarbic respiratory failure - resolved. End stage COPD with acute exacerbation Patient was continued on Solu-Medrol 40 mg every 6, a 5 day course of azithromycin given. Placed on BiPAP given persistent acidemia on ABG and hypercarbia. Slowly tapered off BIPAP to nocturnal time. she is clearly short of breath even with eating and cachexic. Needs BIPAP at night upon discharge and placement. On steroid taper -- will continue 10mg prednisone after completing the taper. Active smoking 50 pack year till the time of admission. Reports thinking of quitting. Will prescribe the patch for her to be discharged on. High blood sugars: 144, 86, 67 On sliding scale while on steroids No long acting insulin DVT prophylaxis SC lovenox Code status DNR/DNI Awaits placement Problem List: 1. COPD exacerbation 2. Acute and chronic respiratory failure with hypoxia Pain Ratin Pain Location: No Pain Pain Goal: Remain pain free Pain Plan: Tylenol PRN Tomorrow's Labs & Rationales: No labs - pending discharge Consulting Request: Consulting Specialty: Critical Care Consulting Physician: Reason for Consult: COPD exacerbation leading to acute hypercarbic hypoxic respiratory failur
--- NOTE | 2017-12-14 08:06 | Patient Discharge Instructions ---
Discharge Instructions General Discharge Information You were seen/treated for: COPD exacerbation Special Instructions: Please follow up with your PCP within a week Please follow up with in a week, you have an appointment on 12/21/2017 at 2.00 PM. Diet Continue normal diet: Yes Activity Activity Self Limited: Yes Acute Coronary Syndrome Inclusion Criteria At DC or during hospital stay patient has or had the following: ACS DIAGNOSIS No Discharge Core Measures Meds if any: Prescribed or Continued at Discharge Meds if any: NOT Prescribed or Continued at Discharge Congestive Heart Failure Inclusion Criteria At DC or during hospital stay patient has or had the following: CHF DIAGNOSIS No Discharge Core Measures Meds if any: Prescribed or Continued at Discharge Meds if any: NOT Prescribed or Continued at Discharge Cerebrovascular accident Inclusion Criteria At DC or during hospital stay patient has or had the following: CVA/TIA Diagnosis No Discharge Core Measures Meds if any: Prescribed or Continued at Discharge Meds if any: NOT Prescribed or Continued at Discharge Venous thromboembolism Inclusion Criteria VTE Diagnosis No VTE Type NONE VTE Confirmed by (Test) NONE Discharge Core Measures - Per Current guidelines, there needs to be overlap - treatment for the first 5 days of Warfarin therapy. - If discharged on Warfarin prior to 5 days of - overlap therapy, the patient will need to be - assessed for post discharge needs including - *Post discharge parental anticoagulation - *Warfarin and/or parental anticoagulation education - *Follow up date to check INR post discharge At least 5 days overlap therapy as Inpatient No Meds if any: Prescribed or Continued at Discharge Note: Overlap Therapy is Warfarin and Anticoagulant Meds if any: NOT Prescribed or Continued at Discharge
[2017-12-14] MEDS ORDERED: PREDNISONE10 M2 PO ×2 (08:10→10:42)
[2017-12-14] MEDS ORDERED: NICOTINE PATCH1 EAC2 TOP (08:34)
--- NOTE | 2017-12-14 10:49 | PN- Pulmonary ---
Subjective HPI/Critical Care Issues: pt seen and examined awaiting dc to rehab feels much better on o2 Objective Current Medications: Current Medications Sig/Nishant Start time Last Medication Dose Route Stop Time Status Admin Acetaminophen 650 MG Q6P PRN 12/02 1015 AC PO Al Hydroxide/Mg 30 ML Q4-6 PRN PRN 12/03 1015 AC 12/06 Hydroxide PO 1028 Albuterol Sulfate 3 ML EVERY 4 HRS/AWAKE 12/02 1600 AC 12/14 INH 0813 Alprazolam 0.5 MG AT BEDTIME NEED.. 12/11 1145 AC 12/13 PO 12/18 1144 2229 Benzocaine/Menthol 1 TORIE Q2P PRN 12/03 0830 AC PO Docusate Sodium 100 MG BID 12/13 2245 AC 12/14 PO 0543 Enoxaparin Sodium 40 MG DAILY 12/03 0900 AC 12/09 SC 0801 Guaifenesin 600 MG Q12 12/07 09 AC 12/14 PO 0817 Insulin Aspart 0 TIDAC 12/03 1200 AC 12/10 SC 1908 Ipratropium [place] 2.5 ML EVERY 4 HRS/AWAKE 12/02 1600 AC 12/14 INH 0813 Melatonin 5 MG AT BEDTIME 12/03 0245 AC 12/13 PO 2229 Nicotine 14 MG DAILY 12/07 0900 AC 12/14 TOP 0817 Omeprazole 40 MG DAILY AC 12/13 0700 AC 12/14 PO 0543 Patient Medication 1 ED ONE ONE 12/13 1515 DC Teaching ED 12/13 1516 Prednisone 30 MG DAILY 12/20 09 AC PO 12/22 0901 Prednisone 40 MG DAILY 12/17 0900 AC PO 12/19 0901 Prednisone 50 MG DAILY 12/14 0900 AC 12/14 PO 12/16 0901 0816 Senna 187 MG ONCE ONE 12/14 1000 DC PO 12/14 1001 Sodium Chloride 2 SPRAY Q4P PRN 12/11 1100 AC 12/11 STARR 1738 Vital Signs & I&O Last 24 Hrs of Vitals and I&O: Vital Signs Date Time Temp Pulse Resp B/P B/P Pulse O2 O2 Flow FiO2 Mean Ox Delivery Rate 12/14 0818 90 Nasal 0.5L Cannula 12/14 06 97.7 90 22 120/68 92 Nasal 0.5L Cannula 12/13 2304 97 Nasal 0.5L Cannula 06/18 2212 97.3 70 20 106/58 97 12/13 1600 Nasal 0.5L Cannula 12/13 1549 89 Nasal 0.5L Cannula 12/13 1456 98.2 60 21 100/60 95 Room Air 12/13 1343 Nasal 0.5L Cannula Intake & Output 12/14 1600 12/14 0800 12/14 0000 Intake Total 250 34 Output Total Balance 250 34 Intake, IV 10 10 Intake, Oral 240 24 Patient 88 lb 5 oz Weight Exam Other Physical Findings: General Appearance: Alert, Oriented X3, Cooperative, No Acute Distress Cardiovascular: Regular Rate, Normal S1, Normal S2, No Murmurs Lungs: minimal scattered expiratory wheezing, prolonged expiratory phase, mildly diminished air movement Abdomen: Normal Bowel Sounds, Soft, No Tenderness, No Masses Extremities: No Clubbing, No Cyanosis, No Edema, Normal Pulses Impression/Plan Impression/Plan Impression/Plan: Impression 62 year old woman * acute on chronic hypoxemic and hypercarbic respiratory failure * exacerbation of COPD * tobacco dependence * moderate pulmonary htn Plan -xanax for anxiety - qualifies pt for bipap, however she is reluctant to use it as it causes her significant discomfort, she is compensated and her ph is normal, this is long standing -pt prefers and we agreed on no further bipap as a goal of care preference knowing risks, however if she becomes acutely ill in a hospital setting she can have a trial of bipap if needed -fio2 goal spo2 of >88% -taper steroids as ordered, leave on 10mg prednisone at baseline until re- evaluated -trc/nebs DVT prophylaxis at all times DNR/DNI Will benefit from STR ([facility] is a consideration)
[2017-12-14 13:21] VITALS: BP 102/65
[2017-12-14 22:44] VITALS: BP 100/64
[2017-12-15 06:20] VITALS: BP 110/58
--- NOTE | 2017-12-15 07:11 | PN- Housestaff ---
See Addendum Subjective Follow-up For: COPD E Subjective: Ms John was seen examined this morning. States that she feels better. Currently eating breakfast. After brief discussion about disposition and that her insurance denied short-term rehabilitation patient appeared upset once I atempted to speak to her about other options. She denies any fever/chills/nausea or vomiting. Review of Systems Constitutional: Reports: see HPI. Objective Last 24 Hrs of Vital Signs/I&O Vital Signs Date Time Temp Pulse Resp B/P B/P Pulse O2 O2 Flow FiO2 Mean Ox Delivery Rate 12/15 0827 94 Nasal 0.5L Cannula 12/15 0800 95 Nasal 0.5L Cannula 12/15 06 98.6 77 18 110/58 95 Nasal Cannula 12/15 0000 Nasal 0.5L Cannula 12/14 2244 97.8 91 20 100/64 93 Nasal 0.5L Cannula 12/14 1600 90 Nasal 0.5L Cannula Intake & Output 12/15 1600 12/15 0800 12/15 0000 Intake Total 200 200 Output Total Balance 200 200 Intake, Oral 200 200 Patient 37.705 kg Weight Physical Exam General Appearance: Alert, Oriented X3, Cooperative HEENT: Mucous Membr. moist/pink Neck: Supple Lymphatic: Cervical nl Cardiovascular: Regular Rate, Normal S1, Normal S2 Lungs: Clear to Auscultation Abdomen: Normal Bowel Sounds, Soft, No Tenderness Neurological: Strength at 5/5 X4 Ext Extremities: No Edema Current Medications: Current Medications Sig/Nishant Start time Last Medication Dose Route Stop Time Status Admin Acetaminophen 650 MG Q6P PRN 12/02 1015 AC PO Al Hydroxide/Mg 30 ML Q4-6 PRN PRN 12/03 1015 AC 12/06 Hydroxide PO 1028 Albuterol Sulfate 3 ML EVERY 4 HRS/AWAKE 12/02 1600 AC 12/15 INH 1134 Alprazolam 0.5 MG AT BEDTIME NEED.. 12/11 1145 AC 12/13 PO 12/18 1144 2229 Benzocaine/Menthol 1 TORIE Q2P PRN 12/03 0830 AC PO Docusate Sodium 100 MG BID 12/13 2245 AC 12/15 PO 0751 Enoxaparin Sodium 40 MG DAILY 12/03 09 AC 12/09 SC 0801 Guaifenesin 600 MG Q12 12/07 0900 AC 12/15 PO 0751 Insulin Aspart 0 TIDAC 12/03 1200 DC 12/14 SC 1733 Ipratropium [place] 2.5 ML EVERY 4 HRS/AWAKE 12/02 1600 AC 12/15 INH 1134 Melatonin 5 MG AT BEDTIME 12/03 0245 AC 12/13 PO 2229 Nicotine 14 MG DAILY 12/07 0900 AC 12/15 TOP 0750 Omeprazole 40 MG DAILY AC 12/13 0700 AC 12/15 PO 0527 Patient Medication 1 ED ONE ONE 12/15 1200 [place] Teaching ED 12/15 1201 Prednisone 30 MG DAILY 12/20 0900 AC PO 12/22 0901 Prednisone 40 MG DAILY 12/17 0900 AC PO 12/19 09 Prednisone 50 MG DAILY 12/14 0900 AC 12/15 PO 12/16 0901 0750 Sodium Chloride 2 SPRAY Q4P PRN 12/11 1100 AC 12/11 STARR 1738 Assessment/Plan Assessment: Ms. 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 Patient was previously admitted to [facility] from 08/21/16-08/23/16 for complaints of fatigue and shortness of breath for which she was admitted to the inpatient service for COPD exacerbation and treated with intravenous antibiotics and steroids. She was discharged home on a steroid taper and 2 L of supplemental oxygen. Patient was referred to dance master Rex Grant MD to follow-up with as an outpatient but appears to have been lost to follow-up. Patient was also not followed up by PCP Vince Garcia since 2016. Patient reported difficulty breathing with productive cough of thick whitish sputum, and acute worsening 2 days prior to admission. Patient also reported intermittent attack of 6/10 epigastric chest discomfort describes of a burning sensation radiating to her throat without any aggravating/alleviating factors. Intially admitted to telemtry and transferred to ICU for closer monitoring due to risk of decompensation. Continue on general medicine floor Plan acute hypoxic hypercarbic respiratory failure - resolved. End stage COPD with acute exacerbation Patient was continued on Solu-Medrol 40 mg every 6, a 5 day course of azithromycin given. Placed on BiPAP given persistent acidemia on ABG and hypercarbia. Slowly tapered off BIPAP to nocturnal time. she is clearly short of breath even with eating and cachexic. Needs BIPAP at night upon discharge and placement. On steroid taper -- will continue 10mg prednisone after completing the taper. Prednisone 50 mg. Active smoking 50 pack year till the time of admission. Reports thinking of quitting. Will prescribe the patch for her to be discharged on. High blood sugars: Will discontiune Sliding scale and sugars were low this am. No long acting insulin DVT prophylaxis SC lovenox Code status DNR/DNI Awaits placement Problem List: 1. COPD exacerbation Pain Ratin Pain Location: No Pain Pain Goal: Remain pain free Pain Plan: tylenol prn Tomorrow's Labs & Rationales: No Labs Consulting Request: Consulting Specialty: Critical Care Consulting Physician: Reason for Consult: COPD exacerbation leading to acute hypercarbic hypoxic respiratory failur
--- NOTE | 2017-12-15 11:48 | PN- Pulmonary ---
Subjective HPI/Critical Care Issues: pt seen and examined insurance denied rehab coverage she is today feeling much better and able to ambulate successfully Objective Current Medications: Current Medications Sig/Nishant Start time Last Medication Dose Route Stop Time Status Admin Acetaminophen 650 MG Q6P PRN 12/02 1015 AC PO Al Hydroxide/Mg 30 ML Q4-6 PRN PRN 12/03 1015 AC 12/06 Hydroxide PO 1028 Albuterol Sulfate 3 ML EVERY 4 HRS/AWAKE 12/02 1600 AC 12/15 INH 1134 Alprazolam 0.5 MG AT BEDTIME NEED.. 12/11 1145 AC 12/13 PO 12/18 1144 2229 Benzocaine/Menthol 1 TORIE Q2P PRN 12/03 0830 AC PO Docusate Sodium 100 MG BID 12/13 2245 AC 12/15 PO 0751 Enoxaparin Sodium 40 MG DAILY 12/03 0900 AC 12/09 SC 0801 Guaifenesin 600 MG Q12 12/07 0900 AC 12/15 PO 0751 Insulin Aspart 0 TIDAC 12/03 1200 DC 12/14 SC 1733 Ipratropium [place] 2.5 ML EVERY 4 HRS/AWAKE 12/02 1600 AC 12/15 INH 1134 Melatonin 5 MG AT BEDTIME 12/03 0245 AC 12/13 PO 2229 Nicotine 14 MG DAILY 12/07 09 AC 12/15 TOP 0750 Omeprazole 40 MG DAILY AC 12/13 0700 AC 12/15 PO 0527 Prednisone 30 MG DAILY 12/20 0900 AC PO 12/22 0901 Prednisone 40 MG DAILY 12/17 09 AC PO 12/19 0901 Prednisone 50 MG DAILY 12/14 0900 AC 12/15 PO 12/16 0901 0750 Sodium Chloride 2 SPRAY Q4P PRN 12/11 1100 AC 12/11 STARR 1738 Vital Signs & I&O Last 24 Hrs of Vitals and I&O: Vital Signs Date Time Temp Pulse Resp B/P B/P Pulse O2 O2 Flow FiO2 Mean Ox Delivery Rate 12/15 08 94 Nasal 0.5L Cannula 12/15 0800 95 Nasal 0.5L Cannula 12/15 06 98.6 77 18 110/58 95 Nasal Cannula 12/15 0000 Nasal 0.5L Cannula 12/14 2244 97.8 91 20 100/64 93 Nasal 0.5L Cannula 12/14 1600 90 Nasal 0.5L Cannula 12/14 1321 97.5 98 22 102/65 97 Nasal Cannula Intake & Output 12/15 1600 12/15 0800 12/15 0000 Intake Total 200 200 Output Total Balance 200 200 Intake, Oral 200 200 Patient 83 lb 2 oz Weight Exam Other Physical Findings: General Appearance: Alert, Oriented X3, Cooperative, No Acute Distress Cardiovascular: Regular Rate, Normal S1, Normal S2, No Murmurs Lungs: minimal scattered expiratory wheezing, prolonged expiratory phase, mildly diminished air movement Abdomen: Normal Bowel Sounds, Soft, No Tenderness, No Masses Extremities: No Clubbing, No Cyanosis, No Edema, Normal Pulses Impression/Plan Impression/Plan Impression/Plan: Impression 62 year old woman * acute on chronic hypoxemic and hypercarbic respiratory failure * exacerbation of COPD * tobacco dependence * moderate pulmonary htn Plan -DC home -arrange o2 - concentrator and portability -arrange PMD follow up ([place]) -declines bipap and acceptable given compensation (abg was 7.38/64 - best) -BREO 100/25mcg INH once daily - rinsing of the mouth -Spiriva Respimat 2.5mcg 2 puffs INH once daily -Albuterol Sulfate Nebulized - TID -prn MDI albuterol DNR/DNI Apt with myself in office 12/21/17 - 2pm
[2017-12-15] MEDS ORDERED: PREDNISONE10 M2 PO ×4 (11:49→13:51)
[2017-12-15] MEDS ORDERED: SPIRIVA RESPIMAT4 GM INH (11:49)
[2017-12-15] MEDS ORDERED: BREO ELLIPTA 11 EACH PO (11:49)
[2017-12-15] MEDS ORDERED: NICOTINE PATCH1 EAC2 TOP (13:51)
[2017-12-15 14:43] VITALS: BP 110/60
== END 2017-12-15 15:30 | DRG 190 ==
LOC: ERH 07:00 → 1NO 09:13 → ERHI 09:13 → ENRESERV 11:25 → ENTRNSPT 12:21 → EDTRNSPTSTS 12:35 → EDTRNSPT 12:35 → 1NO 12:41 → CMPTRNSPT 12:52 → 1NO 17:16 → CRI 12-04 09:13 → ENTRNSPT 12-09 11:47 → EDTRNSPT 12-09 12:05 → EDTRNSPTSTS 12-09 12:05 → 2NA 12-09 12:25 → CMPTRNSPT 12-09 12:27 → 2NA 12-10 14:10 → ENPENDDIS 12-15 13:55 → 2NA 12-15 15:30
PROVIDERS: Emergency Medicine; Internal Medicine Endocrinology, Diabetes & Metabolism; Internal Medicine Interventional Cardiology; Radiology Vascular & Interventional Radiology; Student in an Organized Health Care Education/Training Program
PROC: 5A09457 Assistance with Respiratory Ventilation, 24-96 Consecutive Hours, Continuous Positive Airway Pressure (ICD-10-PCS; principal; 2017-12-04)
DX: J44.1 Chronic obstructive pulmonary disease with (acute) exacerbation (principal); J96.21 Acute and chronic respiratory failure with hypoxia; J96.22 Acute and chronic respiratory failure with hypercapnia; K30 Functional dyspepsia; J40 Bronchitis, not specified as acute or chronic; R94.31 Abnormal electrocardiogram [ECG] [EKG]; F10.10 Alcohol abuse, uncomplicated; Z99.81 Dependence on supplemental oxygen; F17.210 Nicotine dependence, cigarettes, uncomplicated; Z79.51 Long term (current) use of inhaled steroids; Z66 Do not resuscitate; E87.5 Hyperkalemia; K21.9 Gastro-esophageal reflux disease without esophagitis; I27.20 Pulmonary hypertension, unspecified
CPT/HCPCS: 1NP; 2NASP; CCU; 36415; 36592; 71045; 82436; 87070; 93005; 93010; 93306; 96365; 96375; 97116-GO; 97161-GP; J0131; J0456; J1650; J2060; J2405; J2920; J2930; J3250; J3490; J7040; J7042; J7512